=== PATIENT | female | born 1945 | race Caucasian/White ===

== ENCOUNTER → 2018-05-19 07:22 | Outpatient (CLI) | payer MEDICARE, OTHER, SELFPAY | PROVIDERS: Family Provider Physician Assistant; PCP Physician Assistant; Visit Provider Obstetrics & Gynecology | DX: Z53.9 Procedure and treatment not carried out, unspecified reason (principal) ==

== ENCOUNTER 2018-06-08 08:57 | Day surgery (SDC) | payer MEDICARE, OTHER, SELFPAY ==
[2018-06-08] VITALS (8 sets, daily range): BP systolic 96–155; BP diastolic 49–78; PULSE 58–69; RESP 14–18; TEMP 36.5–37.3; O2SAT 93–96; BMI 36.1
--- NOTE | 2018-06-08 | EMB_PTH ---
PATIENT: MEGHA DRAKE [place] [facility] [place][id number] AGE/SX: 73/F ROOM: RE06/08/[address]: Dr. Smita Medrano MD : [id number] BED: DIS: 06/08/2018 SPEC #: [id number] RECD: 06/08/18 14:58 STATUS: LYNDSEY RESrinath #: [id number] DREW: 06/08/18 00:[address]: Smita Medrano DEPT: SURGICAL PATHOLOGY RECD BY: Nirav Crowder ENTERED: 06/08/18 14:58 SP TYPE: ENDOM BX/C LÓPEZ DR: CHRISSY Manzanares Tissues: Endometrium, NOS Procedures: Surgery Specimen Level IV HEADER OPERATION: Hysteroscopy, dilation and curettage PRE-OP DIAGNOSIS: Endometrial hyperplasia, complex without atypia and thickened endometrium, postmenopausal bleeding TISSUE SUBMITTED: Endometrial curettings MICROSCOPIC DIAGNOSIS Endometrium, curettings: Complex endometrial hyperplasia with cytologic atypia. AM:kaity 06/09/18 MICROSCOPIC DESCRIPTION Slides are reviewed. GROSS DESCRIPTION Received in fixative is one container labeled with the patient's name and designated endometrial curettings and polyp. The specimen consists of multiple irregular fragments of zamudio-pink soft tissue mixed with polypoid fragments of tissue that in aggregate measure 3 x 2.5 x 0.3 cm. The entire specimen is submitted in one cassette. / SJ:kaity 06/08/18 TC:5 CPT: 41244
[2018-06-08 10:01] LABS: Bedside Glucose 114 mg/dL (70-110)
[2018-06-08 10:09] LABS: Hemoglobin 14.4 g/dl (12.0-15.0); Mean Corp Hgb Conc 33.5 g/gl (32-36); Mean Corpuscular Hgb 31.1 pg (27.0-32.0); Mean Corpuscular Volume 92.9 fL (81-99); Mean Platelet Vol. 9.8 fl (6.2-12.0); Platelet Count 319 K/mm3 (150-450); RBC Distribution Width CV 12.9 % (11.6-14.6); RBC Distribution Width SD 43.3 fl (35.1-43.9); Red Blood Count 4.63 M/mm3 (4.2-5.4)
[2018-06-08 10:15] LABS: Scan Indicated on CBC? Y/N NO
[2018-06-08 10:23] LABS: Anion Gap 9 (5-15); BUN 14 mg/dL (7-18); BUN/Creat Ratio 20.9 RATIO (10-20); Calcium,Total 8.7 mg/dL (8.5-10.1); Chloride 106 mmol/L (98-107); Creatinine, Serum 0.67 mg/dL (0.55-1.02); EST Glomerular Filtration Rate 92 mL/min (>60); Est Glom Filt Rate - Afr Amer 111 mL/min (>60); Estimated Creatinine Clearance 65.11 ml/min; Glucose 109 mg/dL (74-106); Sodium Level 141 mmol/L (136-145)
--- NOTE | 2018-06-08 12:11 | PCM.DC.D&C ---
Discharge Diet: No Restrictions Discharge Activity: Return to Normal Activity, May Shower, May Take a Tub Bath - in 2 weeks. May shower in (days): 1 May resume sexual activity in: 3 weeks Call your doctor if your incision/area has: Continuous Slow Oozing, Sudden Increased Bleeding, Foul Smelling Discharge Call your doctor if you observe: Fever of 101 or Higher, Using more than one pad per hour Allergies/Adverse Reactions: Allergies hydromorphone [From Dilaudid] Allergy (Verified 06/02/18 13:49) Unknown metoclopramide Allergy (Verified 06/02/18 13:48) Other HALLUCINATIONS nifedipine Allergy (Verified 06/02/18 13:48) Other HALLUCINATIONS nitrofurantoin Allergy (Verified 06/02/18 13:48) Other HALLUCINATIONS lorazepam [From Ativan] Adverse Reaction (Verified 06/02/18 13:49) Other HALLUCINATIONS tramadol [From Ultram] Adverse Reaction (Verified 06/02/18 13:49) Other NIGHTMARES Medications to take at Discharge Duloxetine Hcl [Cymbalta] 30 mg PO DAILY 04/13/18 Esomeprazole Mag Trihydrate [Nexium] 40 mg PO DAILY 04/13/18 Gabapentin [Neurontin] 600 mg PO BIDCM 04/13/18 Metoprolol Succinate [Toprol Xl] 50 mg PO DAILY 04/13/18 Pravastatin [Pravachol] 80 mg PO QHS 04/13/18 Vit A/Vit C/Vit E/Zinc/Copper [Preservision Areds Softgel] 1 each PO DAILY 04/13/18 busPIRone [Buspar] 15 mg PO DAILY 04/13/18 Acyclovir [Zovirax] 400 mg PO BID PRN 06/02/18 Albuterol Aerosols [Ventolin Aerosols] 2.5 mg INHALATION Q4H PRN PRN 06/02/18 Albuterol Sulfate [Proventil Hfa] 6.7 gm IH PRN PRN 06/02/18 Metformin HCl 500 mg PO DAILY 06/02/18 Primary Care Physician: Joan New PA [Primary Care Provider] - Test Results: Test results from this visit will be discussed in further detail at your follow-up appointment, if applicable. Please Follow Up With: Smita Medrano MD - [phone] When: as scheduled or as needed
--- NOTE | 2018-06-08 13:10 | PCM.OPRPT ---
Report of Operation Date of Procedure: 06/08/18 Pre-Operative Diagnosis: postmenopausal bleeding, endometrial hyperplasia- complex without atypia Post-Operative Diagnosis: same + endometrial polyps Surgery/Procedure Performed:: Hysteroscopy dilation and curettage with endometrial polyp resection Description of Surgical Findings:: Normal-appearing cervix and vagina, proliferative appearing endometrium. No significant hypervascularity noted. 2 small polyps in the left cornual area of the endometrial cavity, 1 larger pedunculated polyp in the right cornual area of the uterus. No other discrete abnormalities of the endometrial cavity. Both tubal ostia were identified. Normal-appearing endocervical canal. store clerk: Cory Granda Type of Anesthesia:: MAC/Supplemental/Local Anesthesiologist: Shaggy Levine Special Medications: none Specimen's removed: Endometrial curettings and endometrial polyps Drains: None Estimated Blood Loss (mL): 10 Fluids Replaced: 700 cc LR Description of Procedure: The patient was taken to the OR where she was prepped and draped in dorsal lithotomy position. The weighted speculum was placed in the vagina and the anterior lip of the cervix was grasped with a single-tooth tenaculum. A paracervical block was administered with 1% lidocaine with 1-100,000 epinephrine solution. The cervix was dilated serially with Hegar dilators. The 5mm hysteroscope was placed into the uterine cavity and the above findings were noted. Bilateral tubal ostia were identified. The hysteroscope was removed. The resectoscope with the loop electrode was readied and inserted into the cervix. The loop electrode was used to resect the polyp at their pedicles. These were removed. Gentle sharp curettage was then performed of the endometrium. I replaced the hysteroscope and noted there is still some proliferative appearing endometrium. I then did a visual resection of the endometrium with the loop electrode. The endometrial fragments were placed with endometrial curettings and polyp sent to pathology. The endometrial cavity was hemostatic. The instruments were removed from the vagina. The specimen was handed off and sent to pathology. All sponge and needle counts were correct. Vaginal sweep was performed by me. The patient was awakened and taken to the recovery room in stable condition. Hysteroscopic ins: 1250 cc normal saline Hysteroscopic outs: 850 cc Grafts/Implants Used: None - Complications None - Admit VTE Documentation VTE Present on Admission: No VTE Mechan Device Prophylaxis: SCD's VTE Pharm Prophylaxis ordered?: No Reason prophylaxis not ordered:: Procedure Not Indicated
== END 2018-06-08 14:47 | disposition home or self-care (01) ==
LOC: SDC 09:00 → AC 09:01
PROVIDERS: Family Provider Physician Assistant; PCP Physician Assistant; Visit Provider Obstetrics & Gynecology
PROC: 0UDB8ZZ Extraction of Endometrium, Via Natural or Artificial Opening Endoscopic (ICD-10-PCS; CPT 58558; principal; 2018-06-08 11:05)
DX: N85.01 Benign endometrial hyperplasia (principal); N84.0 Polyp of corpus uteri; N95.0 Postmenopausal bleeding; R73.03 Prediabetes; G62.9 Polyneuropathy, unspecified; I10 Essential (primary) hypertension; E78.5 Hyperlipidemia, unspecified; J45.909 Unspecified asthma, uncomplicated; M19.90 Unspecified osteoarthritis, unspecified site; K21.9 Gastro-esophageal reflux disease without esophagitis; F32.9 Major depressive disorder, single episode, unspecified; F41.9 Anxiety disorder, unspecified; Z79.899 Other long term (current) drug therapy; Z79.84 Long term (current) use of oral hypoglycemic drugs; Z78.0 Asymptomatic menopausal state; Z85.3 Personal history of malignant neoplasm of breast
CPT/HCPCS: 58558; 80048; 82962; 85027; 88305; J7120

== ENCOUNTER → 2018-11-21 14:16 | Outpatient (CLI) | payer MEDICARE, OTHER, SELFPAY ==
--- NOTE | 2018-11-21 14:27 | RAD_ITS ---
STUDY: X-RAY - CERVICAL SPINE REASON FOR EXAM: Female, 73 years old. Neck pain and headache TECHNIQUE: 6 view(s) of the cervical spine were obtained. COMPARISON: None FINDINGS: Normal anterior atlantoaxial articulation. Normal odontoid process. There is been previous anterior cervical fusion between C5 and C6. Hardware is intact and free of complication. Normal cervical lordosis. Normal vertebral bodies and endplates. There is multi-level degenerative disc disease with multilevel disc space narrowing. There is multi-level osseous foraminal stenosis. The soft tissue structures are unremarkable. RAD/Cerv Spine 4 or 5 Views IMPRESSION: Multilevel degenerative changes, no acute findings Electronically Signed: Yusuf Denny MD at 12:13 EST , Service support ,
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
== END ==
PROVIDERS: Family Provider Physician Assistant; PCP Physician Assistant; Referring Provider Physician Assistant; Visit Provider Physician Assistant
DX: S19.9XXA Unspecified injury of neck, initial encounter (principal); S09.93XA Unspecified injury of face, initial encounter; S09.90XA Unspecified injury of head, initial encounter; X58.XXXA Exposure to other specified factors, initial encounter; Y93.9 Activity, unspecified; Y92.9 Unspecified place or not applicable; Y99.9 Unspecified external cause status
CPT/HCPCS: 70450; 70486; 72050

== ENCOUNTER 2018-12-04 08:26 | Outpatient (RCR) | payer MEDICARE, OTHER, SELFPAY ==
--- NOTE | 2018-12-04 09:03 | BH.SGPN.GN ---
Behaviors/Verbalizations/Mental Status: []Client alert and oriented, neatly dressed and groomed. Eye contact good. Motor activity restless, fidgeting with her hands. Speech within normal limits. Affect congruent-tearful, mood depressed, anxious. Thoughts linear, logical, no signs of hallucinations or delusions. Reviewed client?s symptom tracker, 10/07 for suicidal thoughts. Client denies plan, or intent as of 12/04/18. Client Response/Progress/Benefit: []Client responded well to session, tearful throughout, but receptive to supportive statements. Client's first day in IOP and client shared she came to IOP because of her bipolar disorder. Client reported I feel like I'm two different people as client can be fun and outgoing and then cry for no reason. Client shared I have no reason to be so depressed but the group helped client combat this distorted thought and normalized her experience to reduce stigma. Client shared she hopes to learn coping skills and improve her mood to help client get back to being me. Client stated her bipolar has got me in situations that were bad but she wants to move forward. Client appeared to benefit from supportive statements from peers and challenging stigma. Client's first day of IOP. Client to continue to prevent decompensation and maintain safety.
--- NOTE | 2018-12-04 10:23 | BH.SGPN.GN ---
Behaviors/Verbalizations/Mental Status: [Client alert and oriented, casually dressed. Eye contact fair to good. Motor activity appropriate. Speech normal rate, appropriate tone. Affect constricted, mood anxious and depressed. Thoughts linear, logical, no signs of hallucinations or delusions.] Client Response/Progress/Benefit: [Client receptive of session, providing some input though mostly an observatory participant throughout discussion. Client actively listening AEB taking notes and providing some examples. Client connected with the topic of cognitive distortions and nodded throughout the group discussion regarding ways in which thoughts can have a positive or negative impact on mental health. Noted connecting with the various examples provided by fellow participants. Client aided the group in identifying the different types of cognitive distortions and noted that she struggles with use of ?all or nothing thinking?. Client provided an example of using ?all or nothing thinking? in her own life, stating that her mother used to tell her ?if you can?t do it right, don?t do it at all?. Client able to identify how this thought could prevent growth or working towards goals. She appeared to benefit from increasing awareness of how cognitive distortions impact mental health and displayed progress in ability to connect materials discussed with own mental health as well as provide input to the group. Client to continue treatment with a focus on identifying and challenging negative thinking patterns, preventing decompensation, and reducing depressive symptoms. ] Narrative Note: []
--- NOTE | 2018-12-06 09:10 | BH.SGPN.GN ---
Behaviors/Verbalizations/Mental Status: [] Eye contact is good. Motor activity is appropriate. Appearance is casual. Speech is Appropriate. Mood is depressed. Affect is flat. Thoughts are linear and logical. No evidence of psychosis. Reviewed daily check in sheet and pt reports 1/ for suicidal ideations. Primary therapist notified. Client Response/Progress/Benefit: [] Active participant in group activity. Tearful during her check-in. Reports being overwhelming with everything. Talked at length regarding negative impact of some familial relationships. Overwhelming internal emotions as well. Feels like she cannot complete any tasks or responsibilities with crying or becoming emotional. Group provided support, encouragement, and feedback which she reported was helpful. Will continue in IOP to prevent decompensation and stabilize mood. Narrative Note: []
--- NOTE | 2018-12-06 10:22 | BH.SGPN.GN ---
Behaviors/Verbalizations/Mental Status: []Client alert and oriented, neatly dressed and groomed. Eye contact good. Motor activity appropriate. Speech within normal limits. Affect congruent, mood anxious. Thoughts linear, logical, no signs of hallucinations or delusions. Client Response/Progress/Benefit: []Client responded well to session, quiet, but offering occasional insight. Client connected with the concept of pitfalls and described pitfalls as ?comfort zones? or things that keep people stuck. Client reported personal pitfalls can include depression and avoidance. Client agreed with peers that pitfalls can increase anxiety and depression. Client shared having awareness of one?s pitfalls could prevent a person from falling back into old ways. Client participated in the group activity and listened to feedback from peers. Client agreed that without awareness and communication, it is almost impossible to avoid falling into pitfalls. Client appeared to benefit from increasing awareness of how pitfalls impact mental health and how to avoid pitfalls. Progress limited as it is client?s second day of IOP. However, client appears to be engaging well in the group setting.
--- NOTE | 2018-12-06 11:20 | BH.SGPN.GN ---
Behaviors/Verbalizations/Mental Status: [] Eye contact is good. Motor activity is appropriate. Appearance is casual. Speech is Appropriate. Mood is depressed. Affect is flat. Thoughts are linear and logical. No evidence of psychosis Client Response/Progress/Benefit: [] Pt was an active participant in group discussion and activity. Pt completed a worksheet where she identified her own personal pitfalls. Along with the group she also identified general pitfalls or obstacles that keep them stuck in Thier life. Obstacles included; being unorganized, lack of a plan, not communicating, fear of failure, not utilizing supports, and letting emotions get in the way of progress. Group worked together to identify strategies to overcome personal and general pitfalls which included; actively participating in mental health treatment, developing and committing to a plan, identifying decision-making and problem solving strategies, reflection on past experiences, identifying coping skills that are effective and not effective, reframing, and challenging negative thoughts. Benefited from identifying personal and general pitfalls and strategies to over these pitfalls. Will continue in IOP to maintain safety, stabilize mood, and improve daily functioning Narrative Note: []
--- NOTE | 2018-12-06 13:46 | BH.COMM ---
Communication Note - Communication with Client Communication Note: Therapist checked in with client to see how her first week in IOP was going. Client was tearful and expressed she is depressed and scared as she feels like I'm two different people. Client shared she wants to get back to being herself and enjoying life. Client denied any active suicidal ideation, plan, and intent as of 12/06/18. Client shared she is happy my found out about this place as she feels welcomed in the group. Client to continue IOP to prevent decompensation.
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
--- NOTE | 2018-12-07 10:17 | BH.SGPN.GN ---
Behaviors/Verbalizations/Mental Status: [Client alert and oriented, casually dressed, hygiene appropriate. Eye contact fair to good. Motor activity WNL. Speech appropriate rate/tone. Affect congruent, mood euthymic, anxious. Thoughts linear, logical, no signs of hallucinations or delusions. ] Client Response/Progress/Benefit: [Pt responded well to session, actively listening throughout. Pt appeared to have difficulties in connecting with materials discussed though did well to ask questions for clarification. Pt participated in group discussion regarding mental health benefits of change. Pt identified three small personal changes to improve mental health as: taking things one task at a time, challenge negative thinking, and talk more with her daughter. Identified current barriers keeping pt from making those changes to be mind reading, fear of rejection, toxic relationships, and attitude. Pt appeared to benefit from gaining awareness of personal changes that would improve mental health and the barriers keeping client stuck. Progress noted in client level of insight regarding current barriers impacting mental health change. Continue IOP to further increase healthy coping skills, improve socialization and use of supports, and prevent decompensation.] Narrative Note: []
--- NOTE | 2018-12-08 12:47 | HP.PCM_ITS ---
History and Physical Date of Admission: 12/04/18 Chief Complaint: The patient is a 73-year old female who is admitted to the intensive outpatient mental health treatment program at [facility]. She has a history of bipolar disorder and anxiety. Her was present during part of the evaluation and he provided a small amount of collateral information. History of Present Illness: The patient's stated that she has always been a floyd person ever since he met her over 55 years ago. However, her moodiness did not become a serious problem until about the . She had her first psychiatric hospitalization in about 1982 while living in [place]. She became suicidal in the setting of some social stresses. Since that time she has had episodes of depression which lasted anywhere from a day to several weeks. She also has periods of time during which she feels high, spends money impulsively, acts like a different person, is very creative, starts projects, makes jewelry and gives it away and becomes more disinhibited. 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 He said these up periods last a day to several days. She also has periods of normality during which her moods are stable. The patient states that over the past few months she has been depressed. Golden christian, mood sometimes vary throughout the day and she may go from being in a good mood to becoming angry and irritable. She cries frequently. She has difficulty enjoying things in life. She does have hope for the future and she denied suicidal thoughts. Of interest, the patient stated that she often hides her moods from her , so that he is not aware that she is having difficulties. The patient is also had difficulties with anxiety over the years. She has been taking BuSpar for some time and in the past was taking Xanax and other medicines for anxiety. She said that anxiety is not currently a big problem. He is currently taking BuSpar. Past Psychiatric History: The patient has had 3 psychiatric admissions. She was admitted twice while living in [place] during the . She was most recently admitted to a psychiatric hospital in [place] in 1999. All admissions were for suicidality. She first received mental health treatment while living in [place] in 1982. She has seen several psychiatrists over the years, and has been tried on a variety of medications. She and her could only remember taking Xanax and lithium with lithium she developed a rash. She is also said to have a allergy to Ativan. Current Psychiatric Medications: Wellbutrin SR 150 mg daily, Cymbalta 30 milligrams daily, BuSpar 15 mg twice daily Medical History: The patient is overweight. She has neuropathy treated with gabapentin. She is prediabetic treated with metformin. He has asthma. She has hypercholesterolemia treated with pravastatin. She has a history of breast cancer. She recently fell and fractured her nose. Allergies: Dilaudid, Ativan, tramadol, metoclopramide, nifedipine, nitrofurantoin Family Psychiatric History: The patient says her daughter is similar to her with mood swings. Her half sister had depression and had ECT treatments. She thinks her mother had some psychiatric problems. Personal/Social History: Both parents are . He has a sister from whom she is estranged. She went up to the 11th grade in school but then did obtain a GED. She has always had some part-time work. 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 She lives with her . She has been for 55 years and describes the marriage is good. She has 1 daughter who is 54 years old. Denies any history of drug or alcohol issues. Review of Systems: Psychiatry: Depression, mood swings, and anxiety as per HPI. She is not suicidal. She reports some guilty ruminations consistent with possible psychosis. He is cognitively intact. Constitutional: She is overweight and her weight has been steady. Her energy level is fair. Endocrine: She is prediabetic and has hyperlipidemia. All other systems reviewed and are negative other than as per the medical history above. Examination: The patient presents as a woman with a labile mood who is neatly dressed and groomed. She alternates between crying and being of neutral mood. She demonstrates good social skills. Vital signs: Height 4 foot 10 inches, weight 186 pounds, respirations 17. Musculoskeletal: Some facial pain following trauma. Her speech is fluent and spontaneous. Her language is intact. Her judgment and insight are fair. Her judgment is poor when she is manic. He is alert and oriented x3. Her affect is labile, she becomes tearful. Her recent and remote memory are intact. Her attention span and concentration are decreased. She has normal thought processes and abstract reasoning. Her associations are intact. There are no hallucinations or delusions and she is not suicidal. She straits normal age-appropriate fund of knowledge. Mental Status Examination: The patient presents as an elderly woman of labile mood who is neatly dressed and groomed. Cries during much of the session, but is able to control her emotions to some extent. Her thoughts are logical and coherent. Is very floyd as per HPI. Not suicidal. There is no significant psychosis. She is cognitively intact. Diagnoses: [] [place] I: Bipolar disorder, unspecified type, anxiety disorder unspecified [place] II: Deferred [place] III: Overweight, asthma, hypercholesterolemia, prediabetes, neuropathy, status post facial injury Plan: I am continuing treatment with Wellbutrin SR, Cymbalta and BuSpar at the current doses. I am adding Latuda 20 mg daily. Patient will participate in the intensive outpatient groups. I will see her again next week.
--- NOTE | 2018-12-08 12:48 | BH.DR.ITP ---
Initial Treatment Plan - Patient Information Visit Information: ADMISSION DATE: 12/04/18 EXPECTED LOS: 4-6 weeks Diagnoses:: Bipolar disorder; anxiety disorder - Problems/Symptoms Problem #1:: depression, mood lability; tearfulness Problem #2:: anxiety Symptom:: feeling overwhelmed, anxious
--- NOTE | 2018-12-11 09:10 | BH.SGPN.GN ---
Behaviors/Verbalizations/Mental Status: []Client alert and oriented, casual dress, hygiene tended to. Eye contact good. Motor activity appropriate. Speech within normal limits. Affect congruent, anxious and depressed. Tearful at times throughout session. Thoughts linear, logical, no signs of hallucinations or delusions. Reviewed client?s symptom tracker, no signs of suicidal ideation, plan, or intent as of today. Client Response/Progress/Benefit: []Pt was a active participant in group discussion, providing input throughout, attentive AEB good eye contact and nodding throughout. Emotion for today is anxious. Stressor is being torn on whether the congregation she recently moved to is the right fit because daughter didn't like pt's previous congregation pt was attending so pt moved churches. Pt identified having a a hard time setting boundaries with her daughter and often goes along with what daughter wants to do because pt's doesn't like any conflict. With support pt understands importance of taking care of herself and her needs. Mental health win identified as being able to sleep this weekend. Additional win was having a relaxing weekend in which she didn't have to do as many activities with her daughter, which pt stated often her weekend is full with things her daughter wants to do. Pt benefited from supportive and structured group environment. Recommended to continue IOP tx to increase confidence, increase healthy boundaries, prevent decompensation, and continue to improve positive coping and anxiety management. Narrative Note: []
--- NOTE | 2018-12-11 10:15 | BH.SGPN.GN ---
Behaviors/Verbalizations/Mental Status: []Client alert and oriented, casually dressed, hygiene good. Eye contact good. Motor activity appropriate. Speech within normal limits. Affect congruent to mood, mood dysthymic, anxious. Thoughts linear, logical, no signs of hallucinations or delusions. Client was having a hard time spelling words. Client Response/Progress/Benefit: []Client responded well to session, taking notes and participating in discussion. Client reported viewing things as impossible can negatively impact one?s mental health. Client shared ?thoughts impact us a lot and can hurt you.? Client appeared to connect with fixed thinking and recognized fixed thinking patterns she uses. Client stated that if one can challenge fixed thinking it can positively impact mental health. Client shared if one continues to have fixed thinking it can ?play over and over in your head.? Client identified some fixed thoughts that have kept client feeling stuck. Client?s thought was ?I have to please everyone.? Client engaged in the group activity and the group did not complete the activity during second group. However, client continued to be receptive to ideas from the group and positive. Client appeared to benefit from identifying fixed thoughts that have kept client stuck from making mental health progress. Progress noted as client has increased social support and self-awareness at IOP. However, client continues to struggle with utilizing coping skills in the moment and setting boundaries.
--- NOTE | 2018-12-11 11:23 | BH.PSA_ITS ---
Source of Information - Presenting Problems/Circumstances Problems, Referral Source, Mental Status, Client: Last couple of months pt stated her mental symptoms have worsened due to having realtionship troubles with her daughter. Pt states she moved 2 1/2 years ago to be closer to her daughter, but is struggling with leaving all her friends. Pt endorses erratic moods, crying spells, racing thoughts, increased sleep, no energy, loss of concentration, loss of motivation, and anhedonia. Pt reports she has daily anxiety with constant worry, rumination, and fear others are judging her. Psychiatric Presentation - Psych Issues & Need for Admission Psychiatric Issues:: Diagnosed Bipolar Disorder in 1985 Past Psychiatric History - Treatment Hx Treatment History: Several years went to [facility] in [place] until moved 2 years ago. Psychiatry off and on since [address] Yen is primary care physician currently prescribing medications. First hospitalization:: [facility] - 1985 for suicidal thoughts Most recent hospitalization:: 15 years ago in [place] for suicidal thoughts Medication Trials:: No ECT Therapy:: No Describe (age, circumstance, etc) any past hospitalizations: The patient has had 3 psychiatric admissions. She was admitted twice while living in [place] during the . She was most recently admitted to a psychiatric hospital in [place] in 1999. All admissions were for suicidality. Development & Family of Origin - Family Who currently lives in your home?: Pt currently lives with . Ethnicity - Culture Do you identify yourself with any particular cultural, ethnic background, or community?: No - Sexuality Sexual Orientation: Heterosexual Spirituality - Roman Catholic Do you currently identify with any organized anabaptism?: Sikh - Beliefs Is there a particular form of support from this community you can use for your recovery?: Yes Mental Status - Memory Recent Memory: Fair Remote Memory: Fair - Concentration Concentration: Poor - Eye Contact Eye Contact: Good - Speech Speech: Congruent - Thought Process Thought Process: Logical, Ruminations Insight: Fair Judgment: Fair Behavior: Anxious - Orientation Orientation: Time, Person, Place, Situation - Appearance Appearance: Appropriate - Mood Mood: Anxious, Dysphoric/tearful - Affect Affect: Labile Suicide Assessment - Suicidal Ideation Have you ever felt like hurting yourself?: No Please explain:: The patient has had 3 psychiatric admissions. She was admitted twice while living in [place] during the . She was most recently admitted to a psychiatric hospital in [place] in 1999. All admissions were for suicidality. Were you using ETOH/drugs at the time?: No Suicidal Intentional Rating Scale (SIRS): Suicidal thoughts (past) Physician Notification: If Active suicidal thoughts/Will not contract for safety is checked, contact physician and document in the Physician Notification section below. Violent Behavior/Abuse History - Homicidal Ideation Do you have any homicidal thoughts? If so, explain:: No Is there a known potential victim? If yes, who:: No - Safety Do you ever feel threatened in your home? If yes, describe:: No Substance Use - Substance Substance Use Type: None Education & Occupational Histo - Education What is your level of education?: GED Service - Service Have you ever been in the ?: No Legal History - Records Have you had any past legal charges?: No Do you have any current legal charges?: No Have you ever been incarcerated? If yes, describe:: No - Court Orders Have you had any past court orders for psychiatric treatment?: No Do you have a present court order for psychiatric treatment?: No Problem Checklist - Current Problem Areas Problem List: Depressed mood/sad, Anxiety, Anger/aggression, Inattention, Impulsivity, Mood swings/hyperactivity, Other addictive behaviors - shopping - will buy things and sometimes take it back the next day. But has hid bags of clothing from her ., Sleep problems, Additional psychosocial stressors - difficulty setting boundaries with daughter. Diagnoses - Diagnoses Diagnosis #1:: Bipolar disorder, unspecified type Diagnosis #2:: anxiety disorder unspecified Interpretive Summary - Interpretive Summary Interpretive Summary: Pt is a 74 year old female referred to [facility] due to worsening depression and anxiety. She had her first psychiatric hospitalization in about 1982 while living in [facility]. She became suicidal in the setting of some social stresses. Since that time she has had episodes of depression which lasted anywhere from a day to several weeks. She also has periods of time during which she feels high, spends money impulsively, acts like a different person, is very creative, starts projects, makes jewelry and gives it away and becomes more disinhibited. 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 These up periods last a day to several days. She also has periods of normality during which her moods are stable. The patient states that over the past few months she has been depressed. However, mood sometimes vary throughout the day and she may go from being in a good mood to becoming angry and irritable. She cries frequently. She has difficulty enjoying things in life. She does have hope for the future and she denied suicidal thoughts. Of interest, the patient stated that she often hides her moods from her , so that he is not aware that she is having difficulties. denies current sondra symptoms. denies active suicidal ideation, plan or intention. denies delusions or hallucinations. Treatment Plan Recommendations - Recommendations Guidelines: Special needs identified to be included in the development of an individualized treatment plan regarding past psychiatric history and treatment, developmental events, family relationships/events/culture, past and/or current educational, occupational, social, and residential experience, and legal status. Recommendations:: Pt is recommended to start IOP level of care due to worsening depression and anxiety which are impacting her familial relationships, social relationships, and impacts daily functioning.
--- NOTE | 2018-12-11 13:36 | BH.MTP ---
Master Treatment Plan - Patient Information Program Physician:: Dr. Lopez Primary Therapist:: Karen Ortiz, [facility] - Psychiatric Diagnoses Psychiatric Diagnoses:: Bipolar disorder, unspecified type, anxiety disorder unspecified Diagnosis Code(s):: F31.9 - Estimated LOS Estimated LOS (in weeks):: 6 Problem/Goal #1 - Problem/Goal #1 Stated Goal:: Client will increase mood stability, decrease depressive symptoms, and increase coping skills due to Bipolar I disorder through Intensive Outpatient Program. Description of Barriers: Pt's distorted thought patterns, inappropriate guilt, reflecting on past mistakes, and passive communication could be potential barriers to treatment progress. Pt tends to hide her emotions from others which could be barrier to progress because other's don't know she is in need of help, also not dealing with her emotions could maintain depressed cycle. Functional Impact: Pt's mental health symptoms are impacting pt's desire to engage in activities she once enjoyed. Pt reports difficulty with finishing projects or tasks, often starts things but does not finish. Pt isolative behaviors impacting personal relationships. Pt's easily upset and having difficulty managing her emotions. Pt not functioning at baseline. Goal Relevant Strengths/Supports: Pt is determined and verbalizes motivation to get better. Pt's is a positive support for pt and supportive of her getting help. - Objectives Objective #1 Stated Objective: Identify and replace 3-4 distorted thought patterns that reinforce depressive symptoms. Interventions: Therapist will help client identify distorted, negative beliefs about self and world and replace those messages with positive, affirmative messages. Discharge Criteria: Client will have achieved this goal when can identify at least 3 negative and distorted messages and replace those messages with positive, affirmative messages. Target Date: 01/22/19 Review Date: 01/08/19 Objective #2 Stated Objective: Pt will decrease depressive and manic symptoms AEB pt?s score on the DSM 5 cross-cutting measure and improve pt?s daily functioning. Interventions: Through groups and individual therapy, pt will be provided with education on cognitive distortions, mistaken beliefs, and identifying and combating negative self-talk. Therapist will assist pt with getting back into the activities she once enjoyed as well as increasing healthy coping strategies. Discharge Criteria: Pt will have met this goal when pt?s score on the DSM 5 cross cutting measure for depression and sondra has been decreased and per pt?s report daily functioning has improved. Target Date: 01/22/19 Review Date: 01/08/19 Problem/Goal #2 - Problem/Goal #2 Stated Goal:: Stabilize anxiety level while increasing ability to function on daily basis. Description of Barriers: Pt's distorted thought patterns, inappropriate guilt, reflecting on past mistakes, and passive communication could be potential barriers to treatment progress. Pt tends to hide her emotions from others which could be barrier to progress because other's don't know she is in need of help, also not dealing with her emotions could maintain depressed cycle. Functional Impact: Pt's mental health symptoms are impacting pt's desire to engage in activities she once enjoyed. Pt reports difficulty with finishing projects or tasks, often starts things but does not finish. Pt isolative behaviors impacting personal relationships. Pt's easily upset and having difficulty managing her emotions. Pt not functioning at baseline. Goal Relevant Strengths/Supports: Pt is determined and verbalizes motivation to get better. Pt's is a positive support for pt and supportive of her getting help. - Objectives Objective #1 Stated Objective: Client will learn and utilize 2-3 healthy coping strategies to manage anxious symptoms. Interventions: Therapist will assist client in learning internal coping strategies to manage anxious symptoms, along with helping client identify triggers. Discharge Criteria: Client will have achieved this goal when can verbalize and has practiced at least 2 healthy coping strategies to mangage mental health symptoms. Target Date: 01/22/19 Review Date: 01/08/19 Objective #2 Stated Objective: Pt will decrease anxious symptoms AEB pt?s score on the DSM 5 cross-cutting measure improve pt?s daily functioning. Interventions: Through groups and individual therapy, pt will be provided education about anxiety?s impact on body and common physiological reaction to anxiety. Therapist will teach pt appropriate breathing techniques and build healthy coping skills to manage daily anxieties. Discharge Criteria: Pt will have met this goal when pt?s score on the DSM 5 cross cutting measure for anxiety has been decreased and per pt?s report daily functioning has improved. Target Date: 01/22/19 Review Date: 01/08/19
--- NOTE | 2018-12-11 22:57 | BH.MDN_ITS ---
Multi-Disciplinary Note - Note 60-min Individual Time Started:: 11:24 Date: 12/11/18 Purpose of session/treatment goals addressed:: Purpose of session was to assess pt's current symptoms and stressors. Other topics: gathering additional background information, identifying treatment goals for IOP, and identifying small daily goal. Eye Contact:: Good Motor Activity:: Restless Appearance:: Casual Speech:: Appropriate Mood:: Anxious, Depressed Affect:: Congruent Thoughts:: Logical, No evidence of hallucinations/delusions noted Staff Interventions:: Therapist used open ended questions to elicit pt's current symptoms and stressors. Therapist probed for additional background information. Therapist processed pt's guilt and gently challenged pt's thinking patterns. Therapist collaborated with pt to identify treatment goals for IOP. Therapist elicited a small goal for pt to focus on for the day to help keep her focused on one thing at a time. Therapist provided support by active listening and validating emotions. Client Response:: Client shared she is really enjoying the program because it has been helpful to have support from others and learning the skills. Client reported her mental health has worsened since she moved from [place] to [place] about 2 years ago. Client shared she moved to be closer to her daughter, but feels more lonely since her friends live in [place]. Client reported she struggles with setting boundaries with her daughter because she doesn't want to upset her , whom client shared doesn't like conflict. Client became upset when talking about the guilt she has from not making her daughter move to [place] in . Client shared her daughter was 17 years old at the time and had just gotten and did not want to go to [place] with client and client's . Client reported she feels guilt for not being a parent and making her daughter move with her. Client shared she feels responsible for how her daughter has struggled throughout life. Through gentle challenging client able to recognize she is being hard on herself and personalizing. Client stated she is becoming more aware of the importance of taking care of herself and the need to set healthy boundaries with others. Client identified goals she'd like to work on in IOP to include being able to focus and complete tasks, increased confidence, and setting boundaries. Client stated her goal for today is to throw away her old magazines and put away the magazines she wants to keep. Risks/Concerns:: Client denies suicidal ideation, plan or intention to date. Progress Toward Goals/Plan:: Client showing progress with increased insight into how her difficulty setting boundaries is impacting her mental health. Client's guilt and fear of upsetting others could be hindrance to treatment progress because could result in client not taking care of her own needs. Client to continue IOP level of care to decrease depression, challenge negative thoughts and prevent decompensation. Time Stopped:: 12:21
--- NOTE | 2018-12-13 09:04 | BH.SGPN.GN ---
Behaviors/Verbalizations/Mental Status: [Eye contact is good. Motor activity is appropriate. Appearance is casual new haircut and color which pt reports was stepping out of comfort zone. Speech is an appropriate rate and tone. Mood is anxious, euthymic. Affect is congruent. Thoughts are linear and logical. No evidence of psychosis. Reviewed daily check in sheet and no reports of suicidal ideations or intent.] Client Response/Progress/Benefit: [Pt was an active participant in group discussion, providing input throughout and openly discussing with group. Emotion for today is happy which she attributes to successful implementations of skills learned in tx to her daily life. Client shared taking the initiative to use effective and assertive communication to vocalize her concerns with her taking on responsibilities that are not his. Pt. indicated that at first she was afraid of broaching the topic with him, however found he was receptive and understanding when she explained why she was concerned. Noted that instead of taking over and fixing their daughter?s car himself, her agreed to teach their son-in-law how to do it. Client shared that it was empowering for her to feel her concerns were heard. She went on to indicate having a positive experience with her daughter the previous date as well. She noted that she had stepped outside her comfort zone and got a new hairstyle and was able to have a ?normal conversation? with her daughter. Benefitted from identifying areas of progress and processing fears that she ?won?t be able to keep this up? with the group. Group was receptive and provided support. Recommended to continue IOP to continue to promote assertive communication, prevent decompensation, and continue to improve positive coping and emotion regulation.] Narrative Note: []
--- NOTE | 2018-12-13 10:15 | BH.SGPN.GN ---
Behaviors/Verbalizations/Mental Status: []Client alert and oriented, neatly dressed and groomed- new haircut. Eye contact good. Motor activity appropriate. Speech interrupted due to potential difficulty formulating thoughts. Affect congruent to mood, mood anxious. Client appears to have difficulty formulating sentences and often repeats I don't know. no signs of hallucinations or delusions. Client Response/Progress/Benefit: []Client responded well to session, engaged in discussion and taking notes. Client further processed her conflict resolution style. Client reported she has said things in arguments that ?I don?t mean? and that she has a hard time saying no to people. Client stated she wants to be more collaborative and stand up for her needs. Client was encouraged to practice being collaborative during the active. Client was mostly passive, but when prompted by therapist, client shared her ideas with peers. Client helped the group identify things that positively and negatively impact conflict resolution. Client agreed with group that reacting emotionally and ?saying mean things? both negatively impact conflict resolution. Client helped the group identify strategies to better manage conflict such as managing emotions and focusing on the facts. Client appeared to benefit from learning conflict resolution strategies and practicing in the moment. Progress noted as client reports increase self-awareness and self-care. However, client continues to struggle with negative self-talk and regulating her emotions.
--- NOTE | 2018-12-13 10:15 | BH.SGPN.GN ---
Behaviors/Verbalizations/Mental Status: [] Eye contact is good. Motor activity is appropriate. Appearance is casual. Speech is Appropriate. Mood is anxious. Affect is congruent. Thoughts are linear and logical. No evidence of psychosis. Client Response/Progress/Benefit: [] Pt was an active participant in group discussion and activity. Worked together with the group to define conflict which they reported was; two opposing forces, wanting two different outcomes, two different perspectives on same situation, misunderstanding, internal struggles with decisions or emotions, feeling torn, and balancing. Described difference between external conflict and internal conflict. Discussed the benefits of conflict in progressing in relationships and mental health. Pt worked with group to identify barriers to over conflict which included; strong belief in one's perspective or view, miscommunication, one's emotional mood, fear, ramifications, consequences, and negative distortions. Attentive during psycho-education on different types of conflict styles. Pt reports that her conflict style is accommodating which impacts her mental health as she has a hard time saying no and feels lost. Benefited as she was able to identify and define conflict as well as increase awareness of how conflict style impacts her mental health. Will continue in IOP to stabilize mood and prevent decompensation. Narrative Note: []
--- NOTE | 2018-12-14 09:10 | BH.SGPN.GN ---
Behaviors/Verbalizations/Mental Status: [] Eye contact is good. Motor activity is appropriate. Appearance is casual. Speech is Appropriate. Mood is depressed. Affect is flat. Thoughts are linear and logical. No evidence of psychosis. Reviewed daily check in sheet and no reports of suicidal ideations or intent. Client Response/Progress/Benefit: [] Pt participated in group discussion. Emotion for today is anxious. Pt was tearful at times during check-in. Reports that she feels as if people are always staring at her and believe that she is stupid. Shared that she struggles at time with finding the right words to communicate. Discussed how being self-conscious impacts her depression, anxiety, and her overall wellness. Group provided feedback that challenged her cognitive distortion that other group members believe she was stupid. Group pointed out that they have had similar self-conscious thoughts about themselves as well. Benefited from group feedback and support. Will continue in IOP to stabilize mood, improve daily functioning, and prevent decompensation. Narrative Note: []
--- NOTE | 2018-12-14 10:25 | BH.SGPN.GN ---
Behaviors/Verbalizations/Mental Status: [Pt eye contact good, casually dressed, motor activity appropriate, speech normal rate and tone, mood euthymic and positive, congruent affect, thoughts linear and intact, no evidence of delusions or hallucinations.] Client Response/Progress/Benefit: [Pt receptive of session and engaged throughout AEB providing increased input and discussing insights with the group. Did well to participate in the activity and reflect upon group topic of resilience. Pt appeared to connect with various definitions of resilience provided by the group as well as ideas for how resilience can have positive impacts mental health and wellness. Pt engaged in small group discussion about the various strategies that can help strengthen one's resilience and provided examples of ways resilience can boost self-confidence. Pt indicated that keeping things in perspective is an important component of resilience as it ?allows you to look at the bigger picture? rather than ruminating on small components. Pt seemed to benefit from increased awareness of various components that can contribute to increased resilience. Progress noted in pt ability toconnect more with tx materials and provide additional input to group. Continued IOP recommended to prevent decompensation, increase healthy skill application and thought challenging to continue to improve sx management. ] Narrative Note: []
--- NOTE | 2018-12-18 09:05 | BH.SGPN.GN ---
Behaviors/Verbalizations/Mental Status: [] Eye contact is good. Motor activity is appropriate. Appearance is casual. Speech is Appropriate. Mood is anxious. Affect is congruent. Thoughts are linear and logical. No evidence of psychosis. Reviewed daily check in sheet and no reports of suicidal ideations or intent. Client Response/Progress/Benefit: [] Pt participated in group discussion. Emotion for today is anxious. Continue to report daily anxiety and stress which impacts her functioning. Tearful at times. Ruminates extensively on her past actions, relationships, and what she should be doing. According to pt her pointed out when she was using coping skills and utilized restrain during a recent stressful event. Pt pointed out I think this program is helping. Progress noted per pt report. Benefited from group feedback, support, and encouragement. Will continue in IOP to stabilize mood, improve daily functioning, and increase coping skills. Narrative Note: []
--- NOTE | 2018-12-18 11:20 | BH.SGPN.GN ---
Behaviors/Verbalizations/Mental Status: []Client alert and oriented, neatly dressed and groomed. Eye contact good. Motor activity appropriate. Speech within normal limits. Affect full, mood euthymic. Thoughts linear, logical, no signs of hallucinations or delusions. Client Response/Progress/Benefit: []Client responded well to session, needing clarification at times, but overall positive contributions. Client participated in the activity and helped the group process challenges associated with making change. Client recognized that in the activity she became upset with herself when she made a mistake, but she was forgiving to others. The group connected this to the double-standards they hold themselves to when trying to make positive changes. Client reported teamwork, communicating effectively, and self-talk helped the group adapt to change. Client identified a change she would like to make to improve her mental health. Client?s goal was to ?think more before I speak.? Client shared she has said hurtful things in the past and she thinks thinking before she speaks will improve her relationship with her family. Client appeared to benefit from overcoming challenges associated with making change and from identifying a change that would improve her mental health. Progress noted as client reports improved mood and reduced isolation. However, client continues to struggle with guilt, boundaries, and emotional regulation.
--- NOTE | 2018-12-20 09:10 | BH.SGPN.GN ---
Behaviors/Verbalizations/Mental Status: [] Eye contact is good. Motor activity is appropriate. Appearance is casual. Speech is Appropriate. Mood is euthymic. Affect is congruent. Thoughts are linear and logical. No evidence of psychosis. Reviewed daily check in sheet and no reports of suicidal ideations or intent. Client Response/Progress/Benefit: [] Pt was an active participant in group discussions. Emotion for today is calm. Reports improved relationships and communication with daughter. Using skills learned in group to increase assertive and healthy communication. Reports that she feels more in control of her mood. Talked about some stressors which have been a challenge to her recently and feelings of guilt, however group was able to reframe her thoughts. Progress noted. Will continue in IOP to prevent decompensation and stabilize mood. Narrative Note: []
--- NOTE | 2018-12-20 10:16 | BH.SGPN.GN ---
Behaviors/Verbalizations/Mental Status: [Client alert and oriented, casually dressed and appropriately groomed. Eye contact good. Motor activity appropriate. Speech within normal limits. Affect congruent, mood euthymic and anxious. Thoughts linear, logical - at times appearing to display difficulties in comprehending materials discussed, no signs of hallucinations or delusions. ] Client Response/Progress/Benefit: [Pt responded well to session, actively engaged throughout activity and discussion. Provided insight regarding topic of social supports and related to input provided by the group. Pt shared connecting to barriers to seeking support discussed by the group. Identified benefits of social support as helping us gain perspective and reassurance. Pt was engaged during the group activity and responded well to direction as well as provided suggestions to the group. Appeared to benefit from gaining awareness of barriers that keep from seeking social support as well as practicing in the moment coping skills during activity. Progress noted in ability to use anxiety management skills during activity. Continued tx to prevent decompensation, maintain safety, as well as continue to make progress towards tx goals.] Narrative Note: []
--- NOTE | 2018-12-20 11:20 | BH.SGPN.GN ---
Behaviors/Verbalizations/Mental Status: []Pt alert and oriented, eye contact good, casually and neatly dressed, motor activity appropriate, speech normal rate and tone, mood anxious, congruent affect, thoughts linear and intact, no evidence of delusions or hallucinations. Client Response/Progress/Benefit: []Client semi-active participant AEB client contributing at times to discussion, however listened attentively to others. Client worked with the group to make connections between barriers faced in the challenge activity and strategies for managing these barriers with utilizing social supports in daily life. Client reflected that a personal barrier in building new supports is difficulty setting boundaries with daughter which results in client spending most of her time with daughter. Client contributed to discussion about the different types of support and benefits different types of support can provide. Client worked with the group to identify strategies for improving development of new supports and better utilization of current supports. Client identified she would like to improve personal relationships by looking at the [facility] to see if there is a class she can join. Client seemed to benefit from identifying a type of support she would like to improve upon and creating actionable steps to promote follow-through. Client to continue IOP level of care to prevent decompensation, increase use of healthy supports and anxiety management skills. Narrative Note: []
--- NOTE | 2018-12-20 14:37 | BH.MDN ---
Multi-Disciplinary Note - Note 45-min Individual Time Started:: 12:30 Date: 12/20/18 Purpose of session/treatment goals addressed:: Purpose of session was to assess pt's current symptoms and stressors. Other topics included: using the decisional balance tool and self-care. Eye Contact:: Good Motor Activity:: Restless Appearance:: Casual Speech:: Appropriate Mood:: Anxious Affect:: Labile Thoughts:: Logical, Other - confused at times, No evidence of hallucinations/delusions noted Staff Interventions:: Therapist used open ended questions to elicit pt's current symptoms and stressors. Therapist worked with pt to complete a decisional balance worksheet because pt reported being stuck between two choices. Therapist assisted pt with processing the results of the decisional balance tool. Therapist elicited pt's plan of action based on results of the tool. Therapist provided pt with self-care wheel and educated pt about importance of taking time for her. Therapist gave pt homework to engage in at least one self-care activity over the weekend. Client Response:: Client reported she is really struggling with a decision in regards to her adventist situation she has discussed about last session. 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 Client reported she wants to return to her old adventist, but feels like she blew it by leaving and going to a different adventist. 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 Client identified negatives to staying in current adventist include: feeling trapped, can't go to other adventist, doesn't have fun events to attend, not engaging sermon, feels disconnected and doesn't enjoy the adult bible study. Cleint shared positives of going back to the old adventist to include: enjoys the sermon, many activities to attend, feels connected with others, enjoys bible study and likes to attend the game day during the week. client identified negatives of going back to old adventist include: worry she will be judged for leaving, not being accepting for going to a different adventist and feels forced by congretation to attend adult bible study. 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 Client expressed worries about being judged by others but after further exploration client admitted she is assuming she is being judged and has no facts to support the assumptions. Client agreeable to focus on self-care this weekend. Risks/Concerns:: Client denies suicidal ideation, plan or intention to date. Progress Toward Goals/Plan:: Client demonstrating progress AEB client reporting improved ability to manage her emotions in the moment. Client stated her has made several comments about client being able to handle stress better and using breathing skills to keep herself calm in the moment. Client shared she has also been setting boundaries with her daughter and starting to focus on things she enjoys doing. Client continues to struggle with decision making, difficulty managing anxiety, and distorted thought patterns continue to impact her behavior and emotions. Client to continue IOP level of care to decrease anxiety, increase healthy coping and prevent decompensation. Time Stopped:: 13:15
--- NOTE | 2018-12-20 15:32 | BH.MDN_ITS ---
Multi-Disciplinary Note - Note 45-min Individual Time Started:: 12:30 Date: 12/20/18 Purpose of session/treatment goals addressed:: Purpose of session was to assess pt's current symptoms and stressors. Other topics included: using the decisional balance tool and self-care. Eye Contact:: Good Motor Activity:: Restless Appearance:: Casual Speech:: Appropriate Mood:: Anxious Affect:: Labile Thoughts:: Logical, Other - confused at times, No evidence of hallucinations/delusions noted Staff Interventions:: Therapist used open ended questions to elicit pt's current symptoms and stressors. Therapist worked with pt to complete a decisional balance worksheet because pt reported being stuck between two choices. Therapist assisted pt with processing the results of the decisional balance tool. Therapist elicited pt's plan of action based on results of the tool. Therapist provided pt with self-care wheel and educated pt about importance of taking time for her. Therapist gave pt homework to engage in at least one self-care activity over the weekend. Client Response:: Client reported she is really struggling with a decision in regards to her rastafarian situation she has discussed about last session. 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 Client reported she wants to return to her old rastafarian, but feels like she blew it by leaving and going to a different rastafarian. 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 Client identified negatives to staying in current rastafarian include: feeling trapped, can't go to other rastafarian, doesn't have fun events to attend, not engaging sermon, feels disconnected and doesn't enjoy the adult bible study. Cleint shared positives of going back to the old rastafarian to include: enjoys the sermon, many activities to attend, feels connected with others, enjoys bible study and likes to attend the game day during the week. client identified negatives of going back to old rastafarian include: worry she will be judged for leaving, not being accepting for going to a different rastafarian and feels forced by congretation to attend adult bible study. 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 Client expressed worries about being judged by others but after further exploration client admitted she is assuming she is being judged and has no facts to support the assumptions. Client agreeable to focus on self-care this weekend. Risks/Concerns:: Client denies suicidal ideation, plan or intention to date. Progress Toward Goals/Plan:: Client demonstrating progress AEB client reporting improved ability to manage her emotions in the moment. Client stated her has made several comments about client being able to handle stress better and using breathing skills to keep herself calm in the moment. Client shared she has also been setting boundaries with her daughter and starting to focus on things she enjoys doing. Client continues to struggle with decision making, difficulty managing anxiety, and distorted thought patterns continue to impact her behavior and emotions. Client to continue IOP level of care to decrease anxiety, increase healthy coping and prevent decompensation. Time Stopped:: 13:15
--- NOTE | 2018-12-21 09:04 | BH.SGPN.GN ---
Behaviors/Verbalizations/Mental Status: [Eye contact is good - tearful during check-in. Motor activity is appropriate. Appearance is casual and neat. Speech is Appropriate. Mood is dysthymic, anxious. Affect is congruent. Thoughts are linear and logical, racing - consistent with rumination. No evidence of psychosis - though appearing to high levels of guilt. Reviewed daily check in sheet with no reports of suicidal ideations or intent.] Client Response/Progress/Benefit: [Client attentive and remained engaged throughout, receptive of feedback from the group. Emotion for today is mixed,noting she is experiencing anxiety and guilt about her relationship with her daughter as well as excitement about being in the group environment. Shared with the group mental health positives of beginning an exercise regime at the [employer] and reaching out to a friend. She spent much of the group discussing current fear that she has failed her daughter for not being around when she was younger. Client displaying some progress in her ability to engage in healthy coping and apply thought challenging techniques. Will continue in IOP to increase coping skills, decrease depression, and prevent decompensation.] Narrative Note: []
--- NOTE | 2018-12-21 11:25 | BH.SGPN.GN ---
Behaviors/Verbalizations/Mental Status: []Client alert and oriented, neatly dressed and groomed. Eye contact good. Motor activity appropriate. Speech within normal limits. Affect congruent-tearful at times, mood dysthymic. Thoughts linear, logical, no signs of hallucinations or delusions. Client Response/Progress/Benefit: []Client responded well to session, receptive to feedback. Client appeared to connect with maintenance cycles and recognized how negative thinking can keep a person stuck. Client identified a negative thought that has kept her stuck. Client?s thought was ?they won?t accept me? and that she fears rejection. Client shared when she thinks this way she withdraws from supports and feels anxious. The group helped client see that this thought is unrealistic and jumping to conclusions. Client able to reframe the thought to ?I know I have my friend I can talk to.? ?Client shared this thought would improve her mental health because it would encourage her to reach out, be more assertive, and feel relieved. Client appeared to benefit from practicing challenging negative thinking. Client has made progress in increasing self-awareness, but she continues to struggle with inappropriate guilt and negative thinking.
--- NOTE | 2018-12-25 09:02 | BH.SGPN.GN ---
Behaviors/Verbalizations/Mental Status: []Client alert and oriented, disheveled appearance. Eye contact good. Motor activity appropriate. Speech within normal limits. Affect congruent-tearful, mood dysthymic and anxious. Thoughts racing, no signs of hallucinations or delusions. Reviewed client?s symptom tracker, no risk for suicidal ideation, plan, or intent as of 12/25/18. Client Response/Progress/Benefit: []Client responded well to session, tearful throughout, but receptive to feedback from peers. Client reports feeling ?overwhelmed? today and stated she feels like she cannot say no to people or she will let them down. Client processed a recent stressor and she reported she feels like ?I?m being pulled all over the place.? Client shared her also said something to her this morning that was potentially meant as a positive, but client reported she took it negatively. Client able to challenge her distorted thinking with the help of cassandra architect and peers. Client able to identify current mental health wins to be having a good weekend and making it to group today even though ?I look like a mess.? Client appeared to benefit from connecting with peers and processing her stressors. Progress noted as client did not isolate today. Client to continue IOP to prevent decompensation and increase healthy coping skills to manage symptoms.
--- NOTE | 2018-12-25 11:16 | BH.SGPN.GN ---
Behaviors/Verbalizations/Mental Status: [Eye contact is good. Motor activity is appropriate. Appearance is casual. Speech is Appropriate, soft. Mood is anxious, dysthymic. Affect is congruent with mood. Thoughts are linear and logical. No evidence of psychosis.] Client Response/Progress/Benefit: [Pt was an active participant in group activity and discussion, played an active role throughout activity and challenged self to step outside of comfort zone in doing so. Pt worked with the group to complete the challenge activity and identify barriers encountered that may also impact managing stress in daily life. Identified barriers as feeling overwhelmed, self-doubt, and frustration over failures. Pt worked with the group to identify strategies for coping with stress which included; using supports, taking a break, and processing with others to gain perspective. Benefited from identifying personal barriers to managing stress, impact of stress on mental health, and stress management strategies. Pt indicated wanting to work on current stressor of disorganization by setting a small goal to donate five clothing items. Pt to continue in IOP to maintain safety, stabilize mood, and continue to decrease anxiety and intrusive thoughts causing guilt.] Narrative Note: []
--- NOTE | 2018-12-28 09:01 | BH.SGPN.GN ---
Behaviors/Verbalizations/Mental Status: [Eye contact is good appearing tearful when discussing stressor. Motor activity is appropriate. Appearance is casual and comfortable. Speech is Appropriate. Mood is anxious and depressed. Affect is congruent. Thoughts are ruminative in nature, preoccupied by current stressors. No evidence of psychosis. Reviewed daily check in sheet with no reports of suicidal ideations or intent.]] Client Response/Progress/Benefit: [Pt engaged in group discussion, processed with group and actively listening throughout. Emotion for today is let down and indicated that this is related to current stressor. Pt explained that she spent time with an old friend in a group setting and ended up feeling ignored and like she was not wanted. Pt reports attempting to speak with the friend about it but was not successful. Able to identify that addressing the concern is progress but continues to ruminate on feeling as though she had been intentionally treated poorly. Struggled in challenging potential distortions or identify strategies for readdressing concern with support. Did well to identify mental health positives and indicated spending quality time with her as well as continuing to work on applying skills learned despite struggling at times to do so. Benefited from support of the group environment and being challenged to identify positives. Will continue in IOP to prevent decompensation, continue to reduce anxiety, and promote consistent skill application.] Narrative Note: []
--- NOTE | 2018-12-28 10:20 | BH.SGPN.GN ---
Behaviors/Verbalizations/Mental Status: []Client alert and oriented, neatly dressed and groomed. Eye contact good. Motor activity appropriate. Speech WNL. Affect congruent, mood anxious. Thoughts linear, logical, no signs of hallucinations or delusions. Client Response/Progress/Benefit: []Client responded well to session, provided input at times, listened attentively to others. Client connected with the topic of failure and famous people that have overcome setbacks. Client reported she views being able to overcome a setback as a win. Client reported if view failure as a challenge it can motivate you to overcome the setback.?Client nodded that fear of failure can lead to giving up, worse mental health, and self-destructive behavior. Client engaged in a group activity that encouraged the group to overcome fear of failure and challenge their perspective of failure. Client was positive and accepted help from group members during activity. Client appeared to benefit from gaining awareness of how fear of failure negatively impacts mental health. Client is showing progress in expressing thoughts and improved awareness of distorted thoughts. However, she continues to struggle with guilt about past choices which reinforce anxiety and depression. Narrative Note: []
--- NOTE | 2018-12-28 11:19 | BH.SGPN.GN ---
Behaviors/Verbalizations/Mental Status: []Client alert and oriented, casually dressed and groomed. Eye contact good. Motor activity appropriate. Speech within normal limits. Affect constricted, mood depressed, anxious. Thoughts linear, logical, no signs of hallucinations or delusions. Client Response/Progress/Benefit: []Client responded well to session, taking notes and verbally participating. Client further processed the group activity and shared she was often harder on herself than others. The group recognized that overcoming fear of failure means being able to be kind to themselves. Client completed the fear of failure worksheet and reported that fear of failure is keeping her from being around people and making her family happy. Client reported her barriers for overcoming her fear of failure are fear of disappointing others, difficulty communicating, mind-reading, and fear of maintenance. Client shared she has been able to bounce back from setbacks in the past and the positive thing she has learned from past failures is ?there is going to be a tomorrow.? Client selected a goal to help her overcome her fear of failure. Client?s goal is to practice accepting things she cannot change. Client appeared to benefit from gaining awareness and setting a goal to reduce fear of failure. Client showing progress in learning coping skills, but she continues to struggle with setting boundaries and recognizing distorted thought patterns.
--- NOTE | 2018-12-29 09:02 | BH.SGPN.GN ---
Behaviors/Verbalizations/Mental Status: [Eye contact is good. Motor activity is WNL. Appearance is casual. Speech is appropriate rate and tone. Mood is euthymic, calm. Affect is congruent. Thoughts intact, linear and logical. No evidence of psychosis. Reviewed daily check in sheet with no reports of suicidal ideations or intent] Client Response/Progress/Benefit: [Client attentive and providing input throughout. Emotion for today is content as she noted she is feeling more positive and has had better interaction with her daughter which is one of her positives for the day. Shared with the group that she finds she is more confident in her ability to set some boundaries and assert her opinion with her supports. Additional mental health positive of her supports following through with client requests and respecting her request of wanting them to allow her to do things on her own and that they can do things without her. Described current stressor as anxiety about her birthday being on Tuesday as she indicated not enjoying birthdays or the idea of getting older. Progress noted in her ability to identify positives and regulate her emotions while discussing current stressors. Recommended continued IOP tx to maintain stability, decrease anxiety and improve overall self-esteem, as well as prevent decompensation. ] Narrative Note: []
--- NOTE | 2018-12-29 10:20 | BH.SGPN.GN ---
Behaviors/Verbalizations/Mental Status: [] Eye contact is good. Motor activity is appropriate. Appearance is casual. Speech is Appropriate. Mood is anxious. Affect is congruent. Thoughts are linear and logical. No evidence of psychosis. Client Response/Progress/Benefit: [] Pt was an active participant in group discussion and activity. Worked with the group to identify negative coping skills which increase MH symptoms such as; addiction, isolation, avoidance, sleeping to escape, anger outbursts, and impulsive behaviors. Group also identified barriers or obstacles that keep us in unhealthy coping skills such as; lack of awareness of healthy coping, immediate gratification, unhealthy feels comfortable, challenging to change what we are used too, being in negative relationships, and distorted thinking. Participated in experiential activity and processed the activity with the group. Through processing of activity group identified some strategies which helped them overcome barriers during the activity. Able to identify how strategies used such as communication, focus, and mindfulness could also be beneficial positive coping skills. Started to categorize internal vs external coping skills. Benefited from group through identification of unhealthy coping skills, barriers to overcoming unhealthy coping skills, psycho-education on external vs internal coping skills, and coping strategies. Will continue in IOP to prevent decompensation, stabilize mood, provide support, and decrease depression/anxiety. Narrative Note: []
--- NOTE | 2018-12-29 11:20 | BH.SGPN.GN ---
Behaviors/Verbalizations/Mental Status: []Pt eye contact good, casually dressed, motor activity appropriate, speech normal rate and tone, mood anxious, congruent affect, thoughts linear and intact, no evidence of delusions or hallucinations. Client Response/Progress/Benefit: []Pt attentively listened to others and contributed to discussion at times. Pt connected with other coping skills group members shared and added several healthy coping skills during group brainstorm. Pt identified she is willing to practice the following coping skills to increase her healthy skills toolkit: puzzles, funny movies, self-care, cooking a meal, and drawing. Pt seemed to benefit from increasing repertoire of healthy coping skills. Pt progressing with managing her emotions however continues to struggle with managing anxious thought patterns. Pt to continue IOP level of care to identify and challenge distorted thoughts, continue utilization of healthy coping and prevent decompensation. Narrative Note: []
--- NOTE | 2018-12-29 15:55 | PCM.PN.BLA ---
Progress Note Chief Complaint: Recent is a 73-year old female who is an active participant in the intensive outpatient mental health treatment program at [facility]. She has a history of bipolar disorder and anxiety. History of Present Illness/Interim History: The patient states that she has had some ups and downs in her mood. She spends days when she is depressed and has crying spells. On other days she feels pretty good. She has had no excessively high days. She is found the intensive outpatient groups to be extremely helpful and has learned many tools to help her cope. She said her has noticed the difference. Upon inquiry, she admits that she has not been taking her medicines as prescribed. She feels overwhelmed by having to take so many medicines. She is now trying to be more regular in her compliance. Her anxiety level has been steady. She decided she didn't want to take the Latuda I had prescribed at our last visit. She wants to take fewer medicines, not more. Current Psychiatric Medications: Wellbutrin SR 150 mg twice daily, Cymbalta 30 mg daily, BuSpar 15 mg twice daily Review of Symptoms: Psychiatry: Periods of depression per HPI. She is not suicidal. There is no psychosis. She is cognitively intact. Constitutional: She is overweight and her weight has been steady. Her energy level is fair. Mental Status Examination: She presents as elderly woman who is neatly dressed and groomed. Her emotions are stable. Is not suicidal. There is no psychosis. She is cognitively intact. Diagnoses: Outlook I: [] Bipolar disorder, depressed type; anxiety disorder unspecified Outlook II: None Outlook III: Overweight, asthma, hypercholesterolemia, prediabetes, neuropathy, status post facial injury Plan: I am increasing Wellbutrin simplifying to the XL milligrams dose. I am continuing participation with Cymbalta and BuSpar at their current doses. The patient will continue in the intensive outpatient groups. I will see her again for follow-up.
--- NOTE | 2018-12-30 15:02 | BH.MDN_ITS ---
Multi-Disciplinary Note - Note 45-min Individual Time Started:: 12:31 Date: 12/28/18 Purpose of session/treatment goals addressed:: Purpose of session was to assess pt's current symptoms and stressors. Other topics: challenging thought patterns, psychoeducation about impact of anxious thought patterns, and goal setting. Eye Contact:: Good Motor Activity:: Restless Appearance:: Casual Speech:: Appropriate Mood:: Anxious, Depressed, Other - tearful Affect:: Labile Thoughts:: Racing, Other - slow to respond at times and difficulty organizing her thoughts at times., No evidence of hallucinations/delusions noted Staff Interventions:: Therapist used open ended questions to elicit pt's current symptoms and stressors. Therapist processed recent stressor, assisting pt with identifying distorted thought patterns. Therapist provided psychoeducation about impact thoughts have on emotions and behavior. Therapist helped pt identify anxious thoughts and assisted pt with challenging and reframing thoughts. Client Response:: Client responded well to session as evidenced by client openly sharing thoughts and feelings. Client shared she went to a concert with her friend. Client reported her friend had other friends at the show as well. Client shared she went for a drink after the show and felt like the fifth wheel because she didn't feel included in the conversation with her friend and the other people that went out with them. Client repoted she kept thinking I'm intruding and was upset that her friend didn't attempt to include client in the conversation. With therapist assistance client able to recognize she was min dreading and making assumptions while out with her friend. Client admitted she didn't attempt to include herself in the converastion and was stuck in her head. Client shared she is constantly anxious because she is worrying about what others are thinking about her. Client connected with education that her thoughts impact her emotions when then impact her behavior. Client shared she will have anxious thoughts usually about worry she is being judged which then result in her feeling anxious and she will shut down. Client agreeable to complete thought log to increase awareness and insight into how her thought patterns impact her emotions and behavior. Client stated she completed her homework from group and individual sessions by getting rid of the magazines on her couch and picking 5 clothing items to get rid of. Client stated her next goal is to wash the cover of her couch. Risks/Concerns:: Client denies suicidal ideation, plan or intention to date. Progress Toward Goals/Plan:: Client has progressed with completing homework by accomplishing small goals client set in indiviudal and group session. Client being able to complete identified goals demonstrates progress because she has been struggling with finishing projects or tasks due to being easily distracted. Client continuing to struggle with managing anxious thoughts which impact her ability to communicate and result in passive behavior. Client to continue IOP level of care to decrease anxiety, increase ability to challenge anxious thoughts and prevent decompensation. Time Stopped:: 13:15
--- NOTE | 2019-01-04 09:47 | BH.TPR ---
Treatment Plan Review Date of Admission:: 12/04/18 Date of Treatment Plan Review:: 01/04/19
--- NOTE | 2019-02-02 09:06 | BH.NA_ITS ---
Physical Data - Vital Signs Pulse Rate: 76 Respiratory Rate: 14 Blood Pressure: 137/84 - Height/Weight Height: 1.49 m Weight:: 84.368 kg Weight in Pounds: 186.0 lbs Current Medication Compliance - Medication Compliance Do you take your medication as prescribed?: Yes Do you need assistance with taking medication?: No Have you had side effects from medication?: No Nutritional History - Appetite Nutritional Instructions:: If client shows signs of a swallowing problem, weight change of 10 pounds or more in the last month, or is on a diabetic diet, the physician will review and request a dietitian consult, as appropriate. All unintentional weight loss will be referred to the physician for decision on need for dietitian consult. Describe your appetite:: Fair Have you noticed a change in your eating habits lately?: No Functional Assessment - Sleep Pattern Describe any problems with sleeping: Reports difficult falling and staying asleep - Activities Motor Activity:: Functional Sensory/Communication Assess - Vision Problems Do you have any vision problems?: Glasses - Hearing Problems Do you have any hearing problems?: Adequate - Communication Problems Do you have difficulty understanding what people are saying?: No Do you have trouble putting your thoughts into words or expressing what you want to say?: Yes Do people ever have trouble understanding what you say?: No What is your primary language?: Nepalese Learning Assessment - Learning Barriers Learning Barriers:: Ready to learn Medical Problems/History - Cardiac Conditions Cardiovascular: Hypertension, Hyperlipidemia - Respiratory Conditions Respiratory: Asthma - Metabolic Conditions Metabolic: Diabetes - Musculoskeletal Conditions Musculoskeletal: Arthritis - Cancer History Type of Cancer:: Breast - Pain Assessment Do you have acute or chronic pain?: Yes - Female Reproductive Do you think you may be ?: No Number of pregnancies:: 1 Number of children:: 1 Have you reached menopause?: Yes Surgical History - Surgical History Have you had any surgeries? If so, list type and date:: Yes - see PMHx in Summary Substance Abuse - Substance Abuse Please describe substance abuse in the last 30 days:: Client denies ETOH, illicit substance, and tobacco use. Mental Status Summary - Mental Status Significant Findings/Observations on Appearance and Mood:: Dionne is a 74-year-old female who appears her stated age. She is cooperative with interview, makes good eye contact. Normal activity, slow, shuffling gait. She is neatly dressed with good hygiene and grooming. Speech is clear and of normal rate and volume. She is intermittently tearful during interview. Moderate depression, mild anxiety. Mood congruent affect. No symptoms of delusions. Denies SI, hallucinations, and HI. She has had passive thoughts over the past several months. Suicide Assessment - Suicidal Ideation Are you currently or have you been suicidal in the past?: No Suicidal Intentional Rating Scale (SIRS): Suicidal thoughts (past) Physician Notification: If Active suicidal thoughts/Will not contract for safet y is checked, contact physician and document in the Physician Notification section below. Past Psychiatric History - MH Treatment Hx Past Psychiatric Medications:: Depakote, lithium Age of first mental health symptoms: around 19 Fall Risk Assessment - Age Age: 72 or older - Mental Status Mental Status: Willing & able to ask for assistance when needed - Physical Status Physical Status: No problems - Impairments Impairments: None - Elimination Elimination: Continent AND independent - Gait or Balance Gait or Balance: Walks independently - Hx of Falls History of falls in the past 6 months: Has fallen - Medications/Substances Psychotropics:: Antidepressants Others:: Antihypertensives Medications/substances used within the past 24 hours or ordered to administer: 3 or more of the medications/substances listed above - Total Score Total Points:: 6 Physician Notification - Physician Notification Physician Notified: Gary Lopez Method of Notification: Face to Face Comments: treatment planning discussion RN Summary of Impressions - Impressions Recommendations: Include psychiatric and medical issues, treatment planning recommendations, and discharge planning needs. Impressions: Psychiatric Issues: Client notes that she was diagnosed with bipolar disorder years ago and has struggled for 50 years with it. Impression: General Medical Conditions: DM2, HTN, HLD, asthma, osteoarthritis - Level of Care How do the client's current symptoms and functional deficits support need for this level of care?: Client notes a significant decompensation of her mood symptoms for approximately 5 months with a progressive decline. She reports severe mood swings, crying spells, and panic attacks. Dionne reports some impulsive behavoirs intermittently with increased spending. Overall she reports decreased energy. All of these symptoms are causing stress in her marriage and relationships with her family.
[2019-02-16 12:38] VITALS: BP 137/84; PULSE 76; RESP 14
== END 2018-12-31 23:59 ==
LOC: BHIOP 08:26
PROVIDERS: Family Provider Physician Assistant; PCP Physician Assistant; Referring Provider Psychiatry & Neurology Psychiatry; Visit Provider Psychiatry & Neurology Psychiatry
DX: F31.9 Bipolar disorder, unspecified (principal); F41.9 Anxiety disorder, unspecified; Z85.3 Personal history of malignant neoplasm of breast; R73.03 Prediabetes; R45.851 Suicidal ideations; J45.909 Unspecified asthma, uncomplicated; G62.9 Polyneuropathy, unspecified; E78.00 Pure hypercholesterolemia, unspecified; E66.3 Overweight; Z79.899 Other long term (current) drug therapy; Z79.84 Long term (current) use of oral hypoglycemic drugs
CPT/HCPCS: H0035; 90834; 90837; 90853

== ENCOUNTER 2019-01-01 09:00 | Outpatient (RCR) | payer MEDICARE, OTHER, SELFPAY ==
[2018-06-08 09:35] VITALS: BMI 36.1
--- NOTE | 2019-01-01 09:05 | BH.SGPN.GN ---
Behaviors/Verbalizations/Mental Status: [] Eye contact is good. Motor activity is appropriate. Appearance is neat. Speech is rapid/pressured. Mood is euthymic. Affect is full. Thoughts are linear and logical. No evidence of psychosis. Reviewed daily check in sheet and no reports of suicidal ideations or intent Client Response/Progress/Benefit: [] Pt was an active participant in group discussion. Emotion for today was anxious. Presented as very excited about news. Had trouble sitting still. Possibly hypomanic however unsure if just excited. At one point got up and acted out a scene to a play. Was on topic however perhaps inappropriate for group. Was able to be re-directed. 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 Talked about being anxious. Group normalized this type of anxiety. Had dinner with her daughter which went well. Reports continued improvement in Thier relationships which was primary stressor in the past. Completed goals this weekend and feels confident. Benefited from group praise, encouragement, and feedback. Will monitor mood for remainder of the day. progress noted per pt report. Will continue in IOP to prevent decompensation, stabilize mood, and improve coping skills. Narrative Note: []
--- NOTE | 2019-01-01 10:15 | BH.SGPN.GN ---
Behaviors/Verbalizations/Mental Status: [] Eye contact is good. Motor activity is appropriate. Appearance is casual. Speech is Appropriate. Mood is anxious. Affect is congruent. Thoughts are linear and logical. No evidence of psychosis. Client Response/Progress/Benefit: [] Pt was an active participant in group discussion and activity. Group worked together to identify the benefits of setting goals which included; having something to strive for, can be a positive motivator, can give a sense of purpose and accomplishment, can increase happiness and feeling of being proud, and can hold us accountable. Group discussed the barriers to following through with completing a goals which included; fearing change, lack of motivation, fear of failure, shame, disappointment, lack of support, and negative thoughts or emotions get in the way. Pt was attentive during psychoeducation on developing SMART (Specific, Measurable, Achievable, Realistic, Timely) goals as a tool to help with goal setting. Benefited from group by learning effective strategies for goal-setting and identifying barriers to completing goals. Narrative Note: []
--- NOTE | 2019-01-01 11:20 | BH.SGPN.GN ---
Behaviors/Verbalizations/Mental Status: []Pt eye contact good, casually dressed, motor activity restless, speech normal rate and tone, mood anxious, congruent affect, thoughts linear and logical, no evidence of delusions or hallucinations. Client Response/Progress/Benefit: []Pt listened attentively to others and contributed thoughts and ideas to discussion. Client identified her small SMART goal is to work for 30 minutes in her craft room first cleaning off her desk then put items that she wants to throw away into a bin. Client stated this goal will benefit her by being able to actually use her craft room which will improve her mood. Pt identified time to be potential barrier to achieving identified goal, stated she can overcome this barrier by setting a timer and include it in her daily routine. Pt shared another barrier would be worries/rumination that she should be doing something else which she identified reminding herself of the benefits as a strategy to overcome this barrier. Pt reported another barrier could be daughter's pressure to do what daughter wants to do, which pt identified setting boundaries as a strategy to work through that barrier. Pt receptive to help from peers and therapist to make her goal more focused and specific. Pt progressing with being able to follow through with set goals AEB pt completing several goals she has set in group before. Pt seemed to benefit from identifying a SMART goal and identifying ways to help overcome potential barriers. Pt to continue IOP level of care to decrease anxiety, continue to use healthy coping and cognitive restructuring, and prevent decompensation. Narrative Note: []
--- NOTE | 2019-01-04 09:05 | BH.SGPN.GN ---
Behaviors/Verbalizations/Mental Status: []Client alert and oriented, neatly dressed and groomed. Eye contact good. Motor activity appropriate. Speech within normal limits. Affect constricted, mood anxious. Thoughts linear, logical, no signs of hallucinations or delusions. Reviewed client?s symptom tracker, no risk for suicidal ideation, plan, or intent as of 01/04/19. Client Response/Progress/Benefit: []Client responded well to session, receptive to feedback. Client reports feeling ?anxious with knots and butterflies? today. 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 Client stated some of the anxious thoughts she has about her comedy show and the group helped her combat the them. Client?s current mental health win is she set boundaries with her family and ?I didn?t break down.? Client appeared to benefit from receiving support and thought challenge from peers. Progress noted as client is more receptive to thought challenging, however, she continues to struggle with emotional dysregulation and managing anxiety. Client to continue IOP to increase consistent use of internal coping skills and reduce negative thoughts.
--- NOTE | 2019-01-04 10:21 | BH.SGPN.GN ---
Behaviors/Verbalizations/Mental Status: [Client eye contact good, grooming and attire casual, motor activity WNL, speech normal rate and tone , mood anxious and euthymic, congruent affect, thoughts linear and intact, no evidence of delusions or hallucinations] Client Response/Progress/Benefit: [Client responded well to session, positive contributions to discussion and appearing to make connections with input provided by fellow participants. Client engaged in the discussion of what it means to ?take action? in one?s mental health treatment and expressed that doing so can prevent from staying stuck and increase self-confidence. Client agreed with peers that to make change, one needs self-awareness, motivation, and support. Client identified things in her life she wants to start taking control over and change. These things included: negative thinking, lack of self-confidence, difficulties saying no, and anxiety. Client appeared to benefit from identifying things that are holding her back from mental wellness and learning what it means to ?take action.? Progress in increased levels of personal awareness regarding current barriers to mental health progress. Continued IOP tx recommended to increase self-confidence and motivation, decrease anxiety, and prevent decompensation.] Narrative Note: []
--- NOTE | 2019-01-04 11:20 | BH.SGPN.GN ---
Behaviors/Verbalizations/Mental Status: []Pt eye contact good, casually dressed, motor activity appropriate, speech normal rate and tone, mood anxious, congruent affect, thoughts linear and intact, at times confused, slow to process information, no evidence of delusions or hallucinations. Client Response/Progress/Benefit: [] Client engaged, provided input to the group however struggled with staying with the group often needed one on one assistance to help with 30 day plan. Client identified for her action plan she wants to focus on decreasing fear of what others think about her. Client reported this would benefit her because she can improve her view of herself and increase self-confidence. Client shared three small steps towards this goal she plans to take in the next 30 Days include: say positive affirmation every morning I am a good person, write in her journal positive affirmations and go to [place] [employer] [place] three times a week to socialize. Progress noted in her ability to continue to work on her plan despite becoming confused by asking for help. She benefitted from reflecting with the group on the importance of taking small actionable steps towards addressing barriers and making notable changes in her life. Recommend continued IOP to continue use of healthy coping, increase self-confidence in decision making and prevent decompensation. Narrative Note: []
--- NOTE | 2019-01-05 09:01 | BH.SGPN.GN ---
Behaviors/Verbalizations/Mental Status: []Client alert and oriented, casual dress, hygiene tended to. Eye contact good. Motor activity appropriate. Speech within normal limits. Affect bright, mood happy. Thoughts linear, logical, no signs of hallucinations or delusions. Reviewed client?s symptom tracker, no signs of suicidal ideation, plan, or intent as of today. Client Response/Progress/Benefit: []Pt was attentive AEB good eye contact and nodding throughout, provided input when elicited by therapist. Emotion for today is silly and hyper. Stressor identified as pt's not responding well to pt's comments about feeling guilty for not including their daughter on vacation will be taking. Pt stated when her dropped her off at therapy he told her you really need this today because she was being hyper and talking a lot. Pt stated she has a lot of energy, but thought she had communicated her thoughts effectively to her . Mental health win identified as surprising her with her favorite salad yesterday for lunch. Additional win is going to [place] [place] to meet up with friends and engage in something she used to do frequently. Pt seemed to benefit from expressing emotions and support from peers. Recommended to continue IOP tx to stabilize moods, prevent decompensation, and continue to set healthy boundaries. Narrative Note: []
--- NOTE | 2019-01-05 10:05 | BH.SGPN.GN ---
Behaviors/Verbalizations/Mental Status: [] Eye contact is good. Motor activity is appropriate. Appearance is casual. Speech is Appropriate. Mood is anxious. Affect is congruent. Thoughts are linear and logical. No evidence of psychosis. Client Response/Progress/Benefit: [] Pt was an active participant in group activity and discussion. Worked with the group to define anger and its causes. Completed worksheet identifying internal impacts of unhealthy anger which included; anxiety, somatic sensations, hopelessness, shame, guilt, hurt feelings, and poor self-esteem. Pt reports external impact og unhealthy anger as; pushing others away, loosing support, people change how they react to you, and cant's take back hurtful words. Benefited from group by identifying that internal and external impact of unhealthy anger. Narrative Note: []
--- NOTE | 2019-01-05 11:04 | BH.SGPN.GN ---
Behaviors/Verbalizations/Mental Status: [Client alert and oriented, neatly dressed and groomed. Eye contact good. Motor activity appropriate. Speech within normal limits. Affect congruent, mood euthymic and anxious. Thoughts linear, logical, no signs of hallucinations or delusions] Client Response/Progress/Benefit: [Client responded well to session, providing supportive feedback and positive contributions. Client participated in group activity and did well to challenge herself to keep trying despite frustrations and anxiety. Able to connect how skills used in activity relate to those utilized when managing anger. Shared that it takes positive self-talk, encouragement from others, and deep breathing strategies to remain regulated. Group identified strategies for effectively managing anger which included; checking-in with oneself, taking breaks as needed, slowing down, and using calming and mindfulness skills. Indicated she has struggled with using healthy anger management skills in the past and expressed that this has caused her to say things she didn?t mean to others or give up. Client helped the group identify coping skills to more effectively manage anger and potential benefits of anger management. Client appeared to benefit from gaining coping skills to more effectively manage anger. Will continue IOP level of care to promote gains, further improve anxiety management and emotion regulation strategies.] Narrative Note: []
--- NOTE | 2019-01-05 13:16 | BH.MDN_ITS ---
Multi-Disciplinary Note - Note 45-min Individual Time Started:: 12:13 Date: 01/05/19 Purpose of session/treatment goals addressed:: Purpose of session was to assess pt's current symptoms and stressors. Other topics addressed: identifying wants in relationship, grounding, and progress since starting IOP. Eye Contact:: Good Motor Activity:: Restless Appearance:: Casual Speech:: Appropriate Mood:: Anxious Affect:: Labile Thoughts:: Logical, Racing, No evidence of hallucinations/delusions noted Staff Interventions:: Therapist used open ended questions to elicit pt's current symptoms and stressors. Therapist processed recent stressor involving pt's qi cunningham, gently challenged pt's distorted thought patterns. Therapist assisted pt with identifying negative impact lack of communication has on her mental health. Therapist elicited pt's wants in her relationship with . Therapist asssited pt with challenging negative and guilty thought patterns. Therapist reviewed grounding tools to assist with bring pt to the here and now. Client Response:: At start of session pt became tearful stated sometimes I feel like a clown because I act silly to mask how I really feel. Pt agreed she often uses humor to mask her thoughts and feelings. Pt reported she is feeling frustrated with her because she feels he will do things for their daughter, but gets mad if pt asks for the same things. Pt shared in the past she has communicated some of her thoughts to her , but stated she does it in the wrong way because often waits until she is angry then will say something. Pt reported she has been trying to think before she talks by taking a breathe before responding which she stated has been working. Pt responded well to having her distorted thought patterns challenged by therapist, recognizing she was mind reading or predicting the future. Pt reported in her relationship with her she wants to have better communication and be able to do things together without her saying they need to hide it from their daughter. Pt stated she is unsure about having a family session with her because she is worried her will get upset with her. Pt shared she gets anxious about upsetting her because she has fear something bad will happen to him then she doesn't know what she would do because he does so much for her. With assistance from therapist pt identified she was catastrophizing and predicting the future. Pt recognized since she moved to [place] she has kept many of her thoughts and feelings inside, which she can now see how it has negatively impacted her. Pt responded well to identifying statements she can say to herself to combat gulity thoughts when she ruminates about her past decisions. Pt connected with using grounding tools to help her get back to the here and now when she recognizes she is ruminating on the past or worrying about the future. 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 Pt stated she is trying to get back into the activities she used to enjoy doing. Risks/Concerns:: Pt denies suicidal ideation, plan or intention to date. Progress Toward Goals/Plan:: Pt is progressing with using healthy coping skills to manage her emotions before she speaks. Pt has improved awareness of her cognitive distortions. Pt progressing with setting boundaries with daughter and increasing social network by getting involved with activities she used to enjoy doing. Pt struggles with recognizing distortions and reframing the thoughts independently, needs coaching by therapist. Pt often gets stuck ruminating about her past decisions which results in feeling guilty. Pt to continue IOP level of care to increase confident, prevent decompensation and continue to work on identifying and reframing distorted thought patterns. Time Stopped:: 12:52
--- NOTE | 2019-01-05 16:35 | BH.MTP_ITS ---
Treatment Plan Review Date of Admission:: 12/04/18 Date of Treatment Plan Review:: 01/04/19 Admitting Diagnoses:: F 31.9 Bipolar disorder, unspecified type, anxiety disorder unspecified Current Diagnoses:: F 31.30 Bipolar disorder, current episode depressed unspecified; anxiety disorder unspecified Patient's Response to Treatment:: Pt consistently attends IOP sessions. Pt often actively engaged in group sessions by contributing thoughts and feelings during discussion, engaging in activites, and putting forth effort to apply skills learned outside the treatment environment. Pt does struggle at times with completing assigned homework from both indiviudal and group sessions. Status of Current Problems and Symptoms: Pt currently struggling with managing anxious symptoms as evidenced by pt often arriving to IOP in an anxious state and needing assistance from staff to manage anxiety. Pt struggling with setting boundaries especially with daughter due to gulit from pt's parenting decisions when she was younger. 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 By setting small goals pt has been able to make progress with completing some projects and tasks. Pt continues to struggle with emotional regulation, able to use skills at times but not on a consistent basis. Pt denies suicidal ideation, plan or intention. Pt medication compliant. Problem #1 Problem Name:: Increase mood stability and decrease depressive symptoms Status of Goals:: Objective 1 - pt has made progress but has not met object of identifying and replace distorted thoughts. Pt has shown increased awareness of distorted thought patterns and is able to identify her distortions at times. Pt continues to struggle with being able to independently reframe or challenge distorted thoughts. Objective 2 - pt has made progress with reduction in both depressive and manic symptoms as evidenced by pt's self-report scores on the DSM 5 cross-cutting measure questionnaire. On the depression subscale at intake pt scored a 7/8 with, 8 representing severe, amd at review pt scored a 4 out of 8. On the sondra subscale at intake pt scored a 7/8 with, 8 representing severe, amd at review pt scored a 4 out of 8. Pt has recently shown warning signs of hypomania which pt seems to lack awareness of her symptoms. Team Recommendations:: It is recommended pt continue current goal and objective due to goals and objectives not being completed. Plan is to schedule a family session given some mental health symptoms are associated with feelings and thoughts pt has not expressed to her . Will continue to focus on identifying and challenging distorted thought patterns. Problem #2 Problem Name:: Stabilize anxiety level while increasing ability to function Status of Goals:: Objective 1 - Pt has not met objective of learning and applying at least 2 healthy coping skills to manage anxiety. Pt is able to verbalize healthy coping skills but struggles with applying those skills in the moment to reduce anxiety. Objective 2 - Pt has made progress with reduction of anxious symptoms as evidenced by pt's self-report scores on the DSM 5 cross- cutting measure questionnaire. On the anxiety subscale at intake pt scored a 12/12, with 12 representing severe, and at review pt scored a 8/12. Pt is reporting decrease in anxiety however continues to manage anxiety on a consistent basis. Anxiety continues to negatively impact her daily functioning by frequently questioning her own thoughts, not communicating her thoughts and feelings to others, and difficulty making decisions often out of worry that she will hurt someon else's feelings. Team Recommendations:: It is recommended pt continue current goal and objective due to goals and objectives not being completed. Plan is to schedule a family session given some of the mental health symptoms are associated with feelings and thoughts pt has not expressed to her . Will continue to focus on utilizing healthy coping skills in the moment to manage anxiety on a more co nsistent basis.
--- NOTE | 2019-01-08 09:05 | BH.SGPN.GN ---
Behaviors/Verbalizations/Mental Status: []Client alert and oriented, neatly dressed and groomed. Eye contact good. Motor activity appropriate. Speech within normal limits. Affect full, mood euthymic. Thoughts linear, logical, no signs of hallucinations or delusions. Reviewed client?s symptom tracker, no risk for suicidal ideation, plan, or intent as of 01/08/19. Client Response/Progress/Benefit: []Client responded well to session, positive to peers and active. Client reports feeling ?confident? today after having a good time out with friends. Client shared she went to [employer] with her friends and ?changed the attitude of the place.? 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 With therapist elicitation, client was able to recognize use of distorted thoughts and combat them using thought challenging techniques. Client appeared to benefit from challenging distortions in the moment and reflecting on mental health wins. Progress noted as client reports increased socialization, but she can continue to increase mood stability.
--- NOTE | 2019-01-08 10:18 | BH.SGPN.GN ---
Behaviors/Verbalizations/Mental Status: [Client alert and oriented, casually dressed and neatly groomed. Eye contact good. Motor activity appropriate. Speech normal rate and tone. Affect congruent, mood anxious, euthymic - at times appearing confused by materials discussed. Thoughts linear, logical, no signs of hallucinations or delusions. ] Client Response/Progress/Benefit: [Client responded well to session, providing input throughout and reports connecting with examples provided by the group. Client indicated connecting with the topic of cognitive distortions and discussed with the group ways in which thoughts can impact on mental health and result in increased self-esteem. Client aided the group in defining and reflecting upon various types of distortions, indicating that she has utilized various distortions described. 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 Client went on to describe thoughts that she will embarrass herself. Client benefitted from increasing awareness of how the impact of cognitive distortions has impacted her mental health and led to increased fear and self-doubt in the past. Progress in her ability to better understand personal distortions and potential consequences experienced as a result. Client recommended continued IOP tx to maintain stability, continue to work on application of skills learned, and increase self-esteem levels.] Narrative Note: []
--- NOTE | 2019-01-08 11:25 | BH.SGPN.GN ---
Behaviors/Verbalizations/Mental Status: []Pt eye contact good, casually dressed, motor activity appropriate, speech normal rate and tone, slowed thought process at times, mood anxious, congruent affect, thoughts linear and intact, no evidence of delusions or hallucinations. Client Response/Progress/Benefit: []Client engaged in session as evidenced by client listening attentively to others and contributing thoughts to discussion. Client connected with discussion about needing to put effort into challenging distorted thought patterns because recognizes if doesn't try to challenge thoughts then nothing will change. Client identified mental filter to be the cognitive distortion that she most often uses. Client could relate to peers various distorted thought patterns. Client worked with peers to identify distortions and reframe the distorted thought to a realistic, rational thought. Client seemed to struggle with identifying and reframing distorted thoughts, needed assistance from peers throughout worksheet. Client progress could be hindered by client at times being confused or distracted during discussion and education. Client to continue IOP level of care to continue building healthy skills, set healthy boundaries with others and prevent decompensation. Narrative Note: []
--- NOTE | 2019-01-10 09:05 | BH.SGPN.GN ---
Behaviors/Verbalizations/Mental Status: []Client alert and oriented, neatly dressed and groomed. Eye contact fair-eyes closed for a brief moment. Motor activity appropriate. Speech within normal limits. Affect congruent, mood anxious, irritable. Thoughts linear, logical, no signs of hallucinations or delusions. Reviewed client?s symptom tracker, no risk for suicidal ideation, plan, or intent as of 01/10/19. Client Response/Progress/Benefit: []Client responded well to session, engaged throughout. Client reports feeling ?a little jittery? 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 Client shared her yelled at her, but ?I didn?t cry or lose my cool.? 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 Client?s current mental health wins include making extra money, managing her emotions with her , and getting diabetic shoes. Client appeared to benefit from challenging distorted thinking in the moment. Progress noted as client appears to have improved emotional regulation, but she continues to struggle with setting boundaries with her supports which reinforces negative thinking.
--- NOTE | 2019-01-10 10:15 | BH.SGPN.GN ---
Behaviors/Verbalizations/Mental Status: [] Eye contact is good. Motor activity is appropriate. Appearance is casual. Speech is Appropriate. Mood is depressed. Affect is flat. Thoughts are linear and logical. No evidence of psychosis. Client Response/Progress/Benefit: [] Pt was an active participant in group activity and discussion. Pt completed a drawing depicting her current reality which she is standing by a wall which she can't get over. States that she has the help of her however others are laughing at her. Migel herself as a clown as that is what she shows to the world when in reality she is actually sad. Worked with group to identify barrier to reaching desired reality which include; habit, unhealthy coping is easier, fear of failure, fear of changes, and sense of being vulnerable. Benefited from group as pt was able to identify current mental health state and barriers that are impacting progress. Narrative Note: []
--- NOTE | 2019-01-10 16:27 | BH.MDN ---
Multi-Disciplinary Note - Note Family Time Started:: 12:20 Date: 01/10/19 Purpose of session/treatment goals addressed:: Purpose of family session was to identify treatment progress pt's has observed, review skills pt has learned, and increase open communication between pt and her . Eye Contact:: Fair Motor Activity:: Restless Appearance:: Casual Speech:: Appropriate Mood:: Anxious Affect:: Congruent Thoughts:: Linear, Logical, No evidence of hallucinations/delusions noted Staff Interventions:: Therapist elicited pt's husbands thoughts about progress he has observed in pt since she started IOP. Therapist provided pt's with overview of skills pt has been working on which include challenging distorted thoughts, using healthy coping and setting boundaries.Therapist encouarged pt to express thoughts and feelings to her . Therapist facilitated discussion encouraging both pt and her to openly communicate with each other. Therapist led discussion about importance of pt openly communicating because distorted or anxious thoughts tend to hold pt back from communicating with . Therapist provided support by using active listening and validating emotions. Client Response:: Pt's reported he has noticed a lot of progress since pt has started the program. He identified progress to include pt being more relaxed, thinking before she acts and overall has seen improvement in her mood. Pt expressed to her that she feels he does more for their daughter then for pt. Pt provided examples that he seems to talk more with their daughter, will often side with daughter in arguements, and enables their daughter's behavior. Pt's expressed his thoughts in feelings in response to pt. Pt became tearful when expressed to she keeps thinking back to the time he pt that she didn't even want Ashlee (daughter). Pt's provided support to pt by holding her hand and reassured pt he didn't mean what he had said many years ago. Pt and pt's agreed it is important to have more open communication instead of keeping in their thoughts because of fear will upset the other person. Pt's agreeable to be supportive of pt setting some boundaries with their daughter instead of dropping everything to cater to their daughters wants and needs. Risks/Concerns:: Pt denies suicidal ideation, plan or intention to date. Progress Toward Goals/Plan:: Pt showing progress with openly communicating with her how she feels instead of allowing her worries about upsetting her to keep her from communciating. Pt also progressing with improved emotional regulation, improved communication skills with others, and improved mood. Pt continues to struggle with managing anxiety in the moment and reflects on past choices which results in guilt. Pt to continue IOP level of care to maintain gains, continue use of healthy coping, reframing distorted thoughts, and prevent decompensation. Time Stopped:: 13:20
--- NOTE | 2019-01-11 09:10 | BH.SGPN.GN ---
Behaviors/Verbalizations/Mental Status: [] Eye contact is good. Motor activity is appropriate. Appearance is neat. Speech is Appropriate. Mood is anxious. Affect is congruent. Thoughts are linear and logical. No evidence of psychosis. Reviewed daily check in sheet and no reports of suicidal ideations or intent. Client Response/Progress/Benefit: [] Pt was an active participant in group discussion. Emotion for today is jumpy and jittery. Shared with the group that she had a family session with her . Reports that the session went well and discussed the positive impact of the sessions in more detail. 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 She feels ready however is extremely stressed about the event. Overall remarks at the progress she has been making in IOP. Happy that her has also noticed her progress which has positively impacted their relationship. Shared that while she has made progress her anxiety, cognitive distortions, and depression continue to impact her daily. Progress noted. Benefited from group support, feedback, and praise. Narrative Note: []
--- NOTE | 2019-01-11 10:11 | BH.SGPN.GN ---
Behaviors/Verbalizations/Mental Status: [Client alert and oriented, casually dressed, hygiene good. Eye contact fair to good. Motor activity appropriate. Speech within normal limits. Affect congruent, mood euthymic, anxious. Thoughts linear, logical, no signs of hallucinations or delusions. ] Client Response/Progress/Benefit: [Pt responded well to session, providing feedback to discussion. Pt connected with the quote and expressed relating to the analysis provided by her peers. Pt agreed that ineffective communication can negatively impact mental health and relationships and stated that ?we must stop and think so that we don?t miscommunicate?. Pt helped the group discuss the different communication styles including the payoffs and costs of each. Shared relating to passive communication but indicated that she is working to improve her ability to advocate and speak up for herself. Pt recognized that ongoing lack of expression of needs could impact negative self-talk and cause guilt. Pt appeared to benefit from increasing awareness of how communication impacts mental health. Progress noted as client reports increased ability to use more assertive communication, but she continues to struggle with negative thinking patterns that reinforce anxiety and guilt. Recommended continued IOP tx to prevent decompensation, reduce anxiety, and promote effective communication skills and self-confidence.] Narrative Note: []
--- NOTE | 2019-01-11 11:20 | BH.SGPN.GN ---
Behaviors/Verbalizations/Mental Status: []Pt eye contact good, casually dressed, motor activity appropriate, speech normal rate and tone, mood anxious, congruent affect, thoughts linear and intact, no evidence of delusions or hallucinations. Client Response/Progress/Benefit: []Pt active participant AEB pt providing input throughout and attentive to others. Pt identified when she first started IOP she was using aggressive communication which she recognizes upset people in her life and increased conflicts. Pt stated she now communicates more assertively with others by thinking before she talks and being more respectful which pt reported has drastically improved her relationships with others. Pt engaged in activity and able to connect how indirect communication negatively impacts mental health and relationships. Pt identified her communication goal is to be assertive with her daughter and about her needs, instead of going along with what they want her to do. Pt seemed to benefit from increased insight into how her communication style impacts her mental health and relationships and brainstorming of strategies to improve communication. Pt progressing with verbalizing her thoughts and opinions to her family on a more consistent basis and re-engaging in activities she used to find enjoyable. Pt to continue IOP level of care to maintain gains, increase focus on the here and now versus reflecting on the past and prevent decompensation. Narrative Note: []
--- NOTE | 2019-01-18 09:00 | BH.SGPN.GN ---
Behaviors/Verbalizations/Mental Status: [] Eye contact is good. Motor activity is appropriate. Appearance is casual.Pt presents with neck collar due to fall yesterday. Speech is Appropriate. Mood is anxious. Affect is congruent. Thoughts are linear and logical. No evidence of psychosis. Reviewed daily check in sheet and no reports of suicidal ideations or intent. Client Response/Progress/Benefit: [] Pt was an active participant in group discussion. Emotion for today is irritable and anxious. 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 Smiling and proud of herself for following through. Significant stressor yesterday which involved her tripping and falling. This led to an ER visit and then a transfer to [facility]. Reports significant mood swings yesterday in relation to the events. Tearful stating that she broke her glasses which were significant to her and that she has to wear a neck collar which is uncomfortable. 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 Some regression noted yesterday however is utilizing skills to manage. Will continue in IOP to prevent decompensation, provided support, and stabilize emotions. Narrative Note: []
--- NOTE | 2019-01-18 10:00 | BH.SGPN.GN ---
Behaviors/Verbalizations/Mental Status: []Client alert and oriented, neatly dressed and groomed. Eye contact good. Motor activity appropriate. Speech within normal limits. Affect constricted, mood anxious. Thoughts linear, logical, no signs of hallucinations or delusions. Client Response/Progress/Benefit: []Client responded well to session, engaged in discussion and activity. Client discussed the quote and shared ?we are told some emotions are bad, so we don?t express them.? The group discussed how emotions are not good or bad, rather it is how one lucy with them. Client shared being able to cope with emotions in healthy ways improves relationships and ?helps us in the long run.? Client identified distortions, forgetting coping skills, and lack of focus as barriers to communicating emotions in a stressful situation. Client reported the benefit of being able to communicate during stressful situations is getting the support one needs and setting boundaries. Client participated in the activity and did well to work with others and provide clear communication. Client appeared to benefit from increasing awareness of how emotions can impact communication and practicing in the moment coping skills. Progress noted as client reports reduced depressive symptoms, but she continues to struggle with managing anxiety.
--- NOTE | 2019-01-18 11:00 | BH.SGPN.GN ---
Behaviors/Verbalizations/Mental Status: [Eye contact is good. Motor activity is appropriate. Appearance is casual and neat - pt wearing a neck brace due to recent injury. Speech is Appropriate. Mood is euthymic, anxious. Affect is congruent. Thoughts are linear and logical. No evidence of psychosis.] Client Response/Progress/Benefit: [Pt was an active participant in group discussion and zones of regulation activity, providing feedback to peers and using humor to engage the group. Pt attentive during psychoeducation on the 4 zones of regulation and provided input regarding common thoughts, feelings, and behaviors experienced in each zone. Benefited from increased education on zones of regulation or stages of alertness for emotions and healthy coping skills to use for each zone. Identified current zone as ?between the yellow and green? and indicated that this is because she is happy to be socializing but is still struggling with anxiety related to scheduling her appointments for her recent injury and planning for upcoming vacation. Able to identify strategies to incorporate so she can support herself in returning to the ?green zone? as reframing negative thoughts, asserting her boundaries, and applying positive self-talk statements when noticing increased anxiety. Progress noted in increased insight regarding current emotional state and ability to identify coping strategies. Recommended continued IOP tx to promote ongoing application of skills, decrease anxiety, and prevent decompensation. ] Narrative Note: []
--- NOTE | 2019-01-19 10:30 | BH.SGPN.GN ---
Behaviors/Verbalizations/Mental Status: []Client alert and oriented, neatly dressed and groomed. Eye contact good. Motor activity restricted due to neck brace. Speech within normal limits. Affect constricted, mood irritable, anxious. Thoughts linear, logical, no signs of hallucinations or delusions. Client Response/Progress/Benefit: []Client responded well to session, engage throughout session. Client appeared to connect with the topic of personal pitfalls and how they can prevent mental health progress. Client reported people stay ?stuck? because ?going on the better path is a risk.? Client identified barriers to making mental health progress such as not using coping skills. Client shared examples of personal pitfalls as ?going back to bed? when depressed. Client participated in the group activity and struggled at times to regulate her anxiety. Client was receptive to peer feedback. Client reflected that self-awareness and communication are both needed in order to avoid falling into personal pitfalls. Client appeared to benefit from increasing self-awareness. Progress noted as client reports reduced depressive symptoms since starting IOP, however, due to recent stressor client has been struggling with managing emotions.
--- NOTE | 2019-01-19 11:30 | BH.SGPN.GN ---
Behaviors/Verbalizations/Mental Status: []Client alert and oriented, casually dressed and groomed. Eye contact good. Motor activity appropriate. Speech within normal limits. Affect congruent to topic being discussed, mood anxious. Thoughts linear, logical, no signs of hallucinations or delusions. Client Response/Progress/Benefit: []Limited participation in group discussion, however was attentive and was seen nodding in agreement with group suggestions. Pt completed a worksheet where she identified her own personal pitfalls. Personal pitfalls included: lack of trust in others, doesn't believe in self, lack of self-esteem, wanting to left alone, and negative self-talk. Group worked together to identify strategies to overcome personal and general pitfalls which included: actively participating in mental health treatment, setting realistic expectations, positive self-talk, utilizing support system, reflection on past experiences, identifying coping skills that are effective and not effective, reframing, and challenging negative thoughts. Benefited from identifying personal and general pitfalls and strategies to over these pitfalls. Will continue in IOP to stabilize mood. Staff continues to provide support and education regarding depression and hypomania as well as encourage medication compliance. Narrative Note: []
--- NOTE | 2019-01-22 10:05 | BH.SGPN.GN ---
Behaviors/Verbalizations/Mental Status: []Pt eye contact fair, casually dressed, motor activity appropriate, speech normal rate and tone, mood dysthymic, constricted affect, thoughts linear and intact, no evidence of delusions or hallucinations. Client Response/Progress/Benefit: []Client passive participant, provided limited input during discussion, however appeared to attentively listen to peers. Client nodded that viewing situations as impossible can negatively impact one?s mental health. Client agreed with peers comments that seeing things as impossible sets you up to not try new things or to overcome difficult situations. Client nodded to others comments that some things appear impossible, but if keep trying likely can find a way to overcome or accomplish the difficult task. Client more quiet compare to previous group sessions. Client engaged in the group activity and the group did not complete the activity during second group. Despite lack of success, client did not appear to fall into fixed thinking pitfalls and stayed engaged. Client appeared to benefit from gaining awareness how viewing situations as impossible can negatively impact mental health progress. Client continues to struggle with worries about how others view her impact her own emotions. Client progressing with attending IOP despite not wanting to come today. Client to continue IOP to maintain gains, increase utilization of healthy coping and thought challenge, and prevent decompensation. Narrative Note: []
--- NOTE | 2019-01-22 11:10 | BH.SGPN.GN ---
Behaviors/Verbalizations/Mental Status: [Client maintained fair to good eye contact, casually dressed and appropriate grooming, motor activity appropriate, speech normal rate and tone - quieter than usual, mood euthymic, affect congruent, thoughts linear, logical, no evidence of delusions or hallucinations.] Client Response/Progress/Benefit: [Pt attentive engaged in both discussion and growth mindset reflection activity, providing some input and taking notes throughout. Pt participated in reflection on how fixed mindset thoughts the group experienced in the activity impacted ability to complete the task at hand. Client worked with group to identify important components of a growth mindset as she stated fixed thoughts have caused her to people please and put her own needs last. Client used cognitive restructuring to reframe previously identified fixed thoughts. Client replaced fixed thought of ?I can?t please people? with growth mindset thought of ?I can?t please all people, but I know I can please some?. Client benefitted from discussing benefits of growth mindset and strategies for reframing fixed thoughts. Progress noted in client willingness and ability to successfully replace fixed thoughts despite indicating that this was not easy to do. Continued IOP tx to prevent decompensation, increase self-confidence and healthy boundaries, and continue to promote healthy change behaviors.] Narrative Note: []
--- NOTE | 2019-01-22 14:37 | BH.MDN ---
Multi-Disciplinary Note - Note 45-min Individual Time Started:: 09:11 Date: 01/22/19 Purpose of session/treatment goals addressed:: Purpose of session was to asses pt's current symptoms and stressors. Other topics: create maintainence plan for pt while she is on extended vacation. Eye Contact:: Fair Motor Activity:: Appropriate Appearance:: Casual Speech:: Appropriate Mood:: Anxious Affect:: Congruent Thoughts:: Linear, Logical, No evidence of hallucinations/delusions noted Staff Interventions:: Therapist used open ended questions to elicit pt's current symptoms and stressors. Assisted pt with challenge distorted thoughts. Therapist collaborated with pt to to develop maintainence plan while pt is on extended vacation. Client Response:: Pt reported she was struggling with returning to IOP after she broke her neck by falling. Pt stated she was thinking people would press assistant her. Pt shared her anxiety about what people might think about her almost resulted in pt not coming to IOP today. Pt responded well to therapist assisting pt with reframing distorted thought. Pt recognized she was mind reading and the thought is irrational. Pt stated she will be leaving for vacation and won't be returning until February 12. Pt shared she is excited to go on vacation, but also anxious her depressive symptoms return then she ruins trip for her . Pt willing to create maintainence plan for while pt is gone to help her maintain progress. Pt identified on the trip she will need to intentionally find time for self-care, communicate openly with , engage in healthy coping skills daily, challenge negative and distorted thoughts, have realistic expecations of self and be social with friends along the different stops. Risks/Concerns:: Denies current suicidal ideation, plan or intention to date. future focused. Progress Toward Goals/Plan:: Pt progress noted with pt reporting overall improved mood, use of healthy coping skills and awareness of negative thoughts. Pt reporting slight increase in anxiety to return to IOP since breaking her neck, but was able to defeat anxious thougths by showing up to IOP today. Pt will be leaving for an extended vacation and return to IOP following vacation to ensure treatment gains have maintained. Time Stopped:: 10:00
== END 2019-01-30 23:59 ==
LOC: BHIOP 09:00
PROVIDERS: Family Provider Physician Assistant; PCP Physician Assistant; Referring Provider Psychiatry & Neurology Psychiatry; Visit Provider Psychiatry & Neurology Psychiatry
DX: F31.30 Bipolar disorder, current episode depressed, mild or moderate severity, unspecified (principal); F41.9 Anxiety disorder, unspecified
CPT/HCPCS: H0035; 90834; 90853

== ENCOUNTER 2019-02-16 09:00 | Outpatient (RCR) | payer MEDICARE, OTHER, SELFPAY ==
--- NOTE | 2019-01-10 11:17 | BH.SGPN.GN ---
Behaviors/Verbalizations/Mental Status: [Client alert and oriented, casually dressed, appearance appropriate. Eye contact good. Motor activity appropriate. Speech within normal limits. Affect congruent, mood euthymic and anxious. Thoughts linear, logical, no signs of hallucinations or delusions. ] Client Response/Progress/Benefit: [Client was attentive and willing to engage throughout group discussion and activity. Pt taking notes and did well to work with the group to identify obstacles currently preventing from achieving her identified desired reality. Barriers included: difficulties managing stress, poor boundaries, fear of failure, and negative self-talk. Client was able to identify personal resilience factors that can help overcome barriers. Client?s personal resilience factors included; willingness to ask for help and learn new skills, healthy supports, focusing on taking things on step at a time, using deep breathing skills, and humor when experiencing increased anxiety or agitation. Actively participated during activity and worked with group to provide ideas on how to cope with internal barriers. Group identified various obstacles during the activity and developed strategies to overcome those obstacles to wellness and desired reality. Client selected wanting to work on the barrier of negative self-talk patterns by continuing to identify positives about herself when catching negative-talk statements. Benefited from group by identifying obstacles and solutions to desired reality. Will continue IOP tx to improve mood stability, increase use of healthy communication skills, and prevent decompensation.] Narrative Note: []
[2019-01-17 08:44] VITALS: BMI 38.6
--- NOTE | 2019-01-19 09:06 | BH.SGPN.GN ---
Behaviors/Verbalizations/Mental Status: [Eye contact is good. Motor activity is appropriate. Appearance is casual. Pt presents with neck collar due to fall earlier this week. Speech is Appropriate. Mood is anxious, euthymic. Affect is congruent. Thoughts are linear and logical. No evidence of psychosis. Reviewed daily check in sheet and no reports of suicidal ideations or intent.] Client Response/Progress/Benefit: [Pt was an active participant in group discussion and openly process thoughts and feelings. Emotion for today is anxious but ?better than yesterday?. Shared that she is beginning to be able to see the humor in her recent fall and is beginning to adjust to the neck brace she must wear as a result. Discussed that although it is uncomfortable, she has been able to work with her on problem-solving strategies to reduce the itchiness of the brace. Discussed that her has been very supportive which has made things somewhat easier. Reports trying to focus on the positives and practice gratitude which has been crucial in maintaining progress as well. Appeared to benefit from reflecting upon areas of personal resilience and progress despite recent setback. Will continue in IOP to prevent decompensation, continue to improve consistency of skill application, and stabilize emotions.] Narrative Note: []
--- NOTE | 2019-02-16 09:12 | BH.SGPN.GN ---
Behaviors/Verbalizations/Mental Status: [Eye contact is good. Motor activity is appropriate. Appearance is casual. Speech is Appropriate. Mood is anxious. Affect is congruent. Thoughts are linear and logical. No evidence of psychosis. Reviewed daily check in sheet and no reports of suicidal ideations or intent.] Client Response/Progress/Benefit: [Pt was an active participant in group discussion, providing input and supportive feedback throughout. Emotion for today is a mixed bag of emotions. Identified mental health wins as practicing self-care via completing a craft in which she painted some totes. Additional win identified as having a positive vacation with her and being able to see some friends she has not seen in a while. States current stressor as having ?two meltdowns in two days? noted this is due to ongoing difficulties in consistently managing her emotions. Reports insight regarding potential strategies that may aid in improving emotion regulation and prevent escalating to point of crisis. Identified ?I can slow down and take deep breaths? as well as reminding herself ?I can get out of this?. Ability to identify healthy means for maintaining emotional stability as well as reaching out to supports while on vacation indicates progress. Benefited from group support and encouragement. Will continue in IOP to prevent decompensation, improve daily functioning, and increase emotion regulation.] Narrative Note: []
--- NOTE | 2019-02-16 10:25 | BH.SGPN.GN ---
Behaviors/Verbalizations/Mental Status: [Client alert and oriented, casually dressed and groomed. Eye contact good. Motor activity appropriate. Speech within normal limits. Affect congruent, mood euthymic, anxious. Thoughts linear, logical, no signs of hallucinations or delusions. ] Client Response/Progress/Benefit: [Client engaged participant as shown by client?s contribution to discussion and helpful insight. Client participated in the discussion of the common myths about self-care including self-care is selfish, easy, makes us weak, and always fun. Client worked with group to debunk the myths about self-care. Client stated she believes self-care is essential in order to fully function and be happy. Client seemed to benefit from increased awareness of the importance of self-care. Client showing progress as shown by continued improvements in consistent use of healthy skills and setting boundaries with others. Will continue tx to identify and challenge distorted thoughts, increase healthy coping skills, and prevent decompensation.] Narrative Note: []
--- NOTE | 2019-02-16 14:56 | BH.MDN ---
Multi-Disciplinary Note - Note 45-min Individual Time Started:: 08:30 Date: 02/16/19 Purpose of session/treatment goals addressed:: The purpose of this session was to review client's progress, provide closure to treatment, and review strategies that will promote mood stability and gains made in [facility]. Another goal was to discuss aftercare and discharge recommendations. Eye Contact:: Good Motor Activity:: Appropriate Appearance:: Neat Speech:: Appropriate Mood:: Anxious, Depressed Affect:: Congruent - tearful Thoughts:: Circular, No evidence of hallucinations/delusions noted Staff Interventions:: Therapist used open-ended questions to explore client's thoughts on personal progress. Therapist reviewed supports, warning signs, and coping skills with client to promote gains and prevent setbacks. Therapist discussed aftercare plan with client and used strengths-perspective to empower client on the goals client accomplished. Therapist used cognitive restructuring to help client combat negative thinking. Client Response:: Client responded well to session, open to meeting with therapist. Client entered session tearful and anxious. Client stated she was worried she had a setback because she had two bad days in a row where client became tearful and had a meltdown. Client using numerous distortions and self-depreciating talk. After gentle challenging from therapist, client able to recognize and combat negative thoughts. With further exploration, client recognized that her meltdown was due to the stress from returning from vacation and feeling overwhelmed by things she has missed. Client acknowledged that everyone has setbacks and that she still has made significant progress. Client identified her progress as overall reduced depression and intensity of symptoms, increased awareness of distortions, improved communication, and better coping skills. Client reports she plans to see Shelia Siddiqui at [facility] for ongoing outpatient counseling. Client able to identify coping strategies that will help her promote gains and manage symptoms ongoing such as communication with her , breathing, and positive self-talk. Risks/Concerns:: Client denies any suicidal ideations, plan, and intent as of 02/16/19. Progress Toward Goals/Plan:: Client to discharge from [facility] today as she has made progress towards her treatment goals and reports increased mood stability. Client self-reports progress with increased communication, emotional regulation, and awareness of distortions. Client to follow up with Shelia Siddiqui for ongoing outpatient counseling services. Time Stopped:: 09:10
--- NOTE | 2019-03-01 16:12 | BH.DS ---
Discharge Summary - Demographics Date of Admission:: 12/04/18 Discharge Date: 12/17/18 Presenting Problems at Admission:: Pt is a 73 year old female with hx of Bipolar. Hx of 3 previous psychiatric admissions with most recent in February 2000. Self-referred to IOP due to decompensation in MH symptoms for the past 5 months. Reports erratic mood swings, daily panic attacks, crying spells, and difficulty with daily functioning. Notes bouts of energy followed by depressive episodes. Unable to manage emotions. Endorses decreased concentration, decreased focus, crying spells, erratic sleep, low energy, no moitivation, hopelessness, and worthlessness. Impulsivity. Easily overwhelmed. Starting numerous projects and doesn't follow through. Not linked with counseling or psychiatry. Denies active suicidal ideations, plan, or intent. Worsening MH symptoms impacting social, familial, vocational and social functioning, erratic mood swings, and daily panic attacks. Was recommended IOP. Discharge Diagnoses:: Bipolar disorder, depressed type. Anxiety disorder unspecified Reason for Discharge:: Pt met all treatment plan goals. No longer meets criteria for IOP level of care. - Treatment Progress During Treatment & Response: Pt made significant progress during IOP treatment. Upon entering IOP pt scored a 72 on the DSM 5 cross-cutting scales. At discharge she scored a 26 which is a 46 point reduction in symptoms. Pt reports increased awareness of emotions and reactions, decrease in impulsive feelings, increased emotional regulation, and consistent use of coping skills. Overall improved mental health per pt report. Responded well to IOP program. Issues Still to be Addressed:: Pt could benefit from continued focus of identifying and challenging anxious and negative thought patterns. Could also benefit from reinforcement of healthy coping skills, communication with supports, and engaging in activities outside the home. Discharge Recommendations/Instructions:: Following with with therapist Shelia at [facility] on 03/26/2019. Will have medication management through Dr. Tristin New at [facility]. Discharge Handout: Complete Discharge Handout with client on aftercare options and continuity of care.
--- NOTE | 2019-03-01 16:32 | BH.DS_ITS ---
Discharge Summary - Demographics Date of Admission:: 12/04/18 Discharge Date: 12/17/18 Presenting Problems at Admission:: Pt is a 73 year old female with hx of Bipolar. Hx of 3 previous psychiatric admissions with most recent in February 2000. Self-referred to IOP due to decompensation in MH symptoms for the past 5 months. Reports erratic mood swings, daily panic attacks, crying spells, and difficulty with daily functioning. Notes bouts of energy followed by depressive episodes. Unable to manage emotions. Endorses decreased concentration, decreased focus, crying spells, erratic sleep, low energy, no moitivation, hopelessness, and worthlessness. Impulsivity. Easily overwhelmed. Starting numerous projects and doesn't follow through. Not linked with counseling or psychiatry. Denies active suicidal ideations, plan, or intent. Worsening MH symptoms impacting social, fa milial, vocational and social functioning, erratic mood swings, and daily panic attacks. Was recommended IOP. Discharge Diagnoses:: Bipolar disorder, depressed type. Anxiety disorder unspecified Reason for Discharge:: Pt met all treatment plan goals. No longer meets criteria for IOP level of care. - Treatment Progress During Treatment & Response: Pt made significant progress during IOP treatment. Upon entering IOP pt scored a 72 on the DSM 5 cross-cutting scales. At discharge she scored a 26 which is a 46 point reduction in symptoms. Pt reports increased awareness of emotions and reactions, decrease in impulsive feelings, increased emotional regulation, and consistent use of coping skills. Overall improved mental health per pt report. Responded well to IOP program. Issues Still to be Addressed:: Pt could benefit from continued focus of identifying and challenging anxious and negative thought patterns. Could also benefit from reinforcement of healthy coping skills, communication with supports, and engaging in activities outside the home. Discharge Recommendations/Instructions:: Following with with therapist Shelia at [facility] on 03/26/2019. Will have medication management through Dr. Tristin New at [facility]. Discharge Handout: Complete Discharge Handout with client on aftercare options and continuity of care.
== END 2019-02-16 14:00 | disposition home or self-care (01) ==
LOC: BHIOP 09:00
PROVIDERS: Family Provider Physician Assistant; PCP Physician Assistant; Referring Provider Psychiatry & Neurology Psychiatry; Visit Provider Psychiatry & Neurology Psychiatry
DX: F31.9 Bipolar disorder, unspecified (principal); F41.9 Anxiety disorder, unspecified; Z79.899 Other long term (current) drug therapy
CPT/HCPCS: H0035; 90834; 90853

== ENCOUNTER 2019-07-16 11:18 | Day surgery (SDC) | payer MEDICARE, OTHER, SELFPAY ==
[2019-01-17 08:44] VITALS: BMI 38.6
--- NOTE | 2019-07-15 11:46 | PCM.HP.BLA ---
History and Physical Date of Admission: 07/16/19 HISTORY AND PHYSICAL ? Dionne Castellanos 1945 ? REFERRING PHYSICIAN: ??Joan New* ? CHIEF COMPLAINT: ??Clinical Update ? HPI: The patient is a 74 year old female?who presents to update H&P for?upcoming?scheduled colonoscopy?07/16/19 at [facility]. ?Per my recent H&P from 04/12/19: ? The patient is a 74 year old female referred for endoscopy. ?Dionne notes a history of colon polyps and states she is due for 5 year follow-up colonoscopy, last endoscopy performed in 2013 in [place]. Patient?notes she has been having issues with both upper and lower abdominal discomfort. ?Will get occasional twinges of discomfort in lower abdomen and has noted some weight gain. ?Notes fluctuating bowel habits and fecal urgency, worse at night. ?She has a past history of colon resection for diverticulitis. ?She also has a known hiatal hernia and states has been experiencing stomach discomfort. ?States at one point had a Torrey fundoplication but the wrap came loose. ?She notes she has had multiple hernias repaired with a large piece of mesh in her abdomen. ?She has had prior cholecystectomy and appendectomy. ? Patient has had a past VT, states was found on EKG but never had symptoms. ?Her medical history is also significant for bipolar disorder, glaucoma, osteopenia, DCIS, asthma, hypertension, hyperlipidemia, neuropathy, myasthenia gravis. ?She follows with Tristin New PA-C for her chronic medical conditions. ? The patient denies any significant change to her?overall health since her?last visit. ?Her?past medical history, past surgical history, medications and allergies are up to date as of this visit. ? ? PAST?MEDICAL?HISTORY PAST MEDICAL HISTORY Diagnosis Date ? Abnormal EKG 01/03/2014 ? inferior VT aage undetermined (q-waves inferior) ? Anxiety ? ? Arthritis ? ? knee and hip ? Asthma ? ? C6 cervical fracture (HCC) 2018 ? DCIS (ductal carcinoma in situ) 2005 ? multifocal DCIS, bilateral mastectomy ? DDD (degenerative disc disease), cervical ? ? Depression ? ? Detached retina ? ? Seeing Dr. Vásquez ? Diverticulitis 2000 ? partial colectomy descending colon ? Diverticulosis ? ? Fall at home ? ? Gait instability 10/28/2016 ? Gastroparesis 01/02/2014 ? Diagnosis Dr. Dylan Paige ? GERD (gastroesophageal reflux disease) ? ? Glaucoma ? ? Hiatal hernia ? ? History of femur fracture 2013 ? alex placed, after fall ? HTN (hypertension) ? ? Hyperlipidemia ? ? Neck fracture (HCC) ? ? Neuropathy (HCC) ? ? Osteopenia ? ? Prediabetes ? ? Pseudopolyp of transverse colon with abscess (HCC) 02/09/2017 ? 04/2007 colonoscopy: polyps 01/02/2014 Colonoscopy: polyps Alfredito MONTES [place] Rec 2019 surveillance ? Syncope 12/20/2013 ? 01/03/14 24 hour holtor WNL, carotid US bilaterally stenosis< 50%. echocardiogram: mild concentric LVH, EF 60-65%, grae 1 diatolic dysfunction, LA mildly dilated, RA NL, trivial mitral thickening, !+ MR, mildTR with pulm pressure 37mmHG, no AVR, mild PVR. Cardia PET regadson study: no ischemia. EF >70%, LV small and normal systolic function ? Urinary incontinence ? ? ? PAST?SURGICAL?HISTORY PAST SURGICAL HISTORY Procedure Laterality Date ? APPENDECTOMY ? ? ? COLONOSCOPY ? ? ? CT ABD & PELV W/CONTRAST ? 10/16/2015 ? abdominal pain. WNL. small paraesophageal hernia, diverticulosis ? GALLBLADDER /EJECTION FRACTION ? ? ? HERNIA REPAIR HX ? ? ? x4 ventral hernia ? HYSTEROSCOPY ? 01/2014 ? h/s D&C for PMB- benign ? HYSTEROSCOPY, SURGICAL; WITH SAMPLI ? 06/08/2018 ? Hysteroscopy D&C w/ resection of endometrial polyp ? LX PARTIAL COLECTOMY ? 1997 ? for diverticulitis ? MASTECTOMY HX Bilateral 2005 ? PAST SURGICAL HISTORY OF ? ? ? Trorey fundoplication ? PAST SURGICAL HISTORY OF ? 2013 ? cervical spinal fusion ? PROCEDURE ? ? ? right femur repair, alex placed ? REPAIR RETINAL DETACH, C Right ? ? SLING OPER STRES INCONTINENCE ? 1995 ? stress incontinence ? TOTAL KNEE REPLACEMENT Left ? ? ? CURRENT?MEDICATIONS ? Current Outpatient Medications: metFORMIN (GLUCOPHAGE) 500 mg tablet Take 1 tablet by mouth once daily. metoprolol succinate ER (TOPROL XL) 50 mg 24 hr tablet Take 1 tablet by mouth once daily. albuterol HFA (PROVENTIL HFA, VENTOLIN HFA) 90 mcg/actuation inhaler Inhale 2 Puffs as instructed every 4 hours as needed. DULoxetine (CYMBALTA) 30 mg capsule Take 1 capsule by mouth once daily. buPROPion SR (WELLBUTRIN SR) 150 mg 12 hr tablet Take 1 tablet by mouth twice daily. pravastatin (PRAVACHOL) 80 mg tablet Take 1 tablet by mouth once daily. gabapentin (NEURONTIN) 600 mg tablet TAKE 1 TABLETS BY MOUTH IN THE MORNING AND 1 TABLET IN THE AFTERNOON NEXIUM 40 mg capsule Take 1 capsule by mouth once daily. (Patient taking differently: Take 40 mg by mouth every other day. ) acyclovir (ZOVIRAX) 400 mg tablet take 1 tablet by mouth twice a day (Patient not taking: Reported on 07/03/2019) COMPOUNDED PRESCRIPTION L8030 BREAST PROSTHESISQTY: 2 - BILATERALDX: MULTIFOCAL DCIS COMPOUNDED PRESCRIPTION L8020 LEISURE BREAST FORMQTY: 2 BILATERALDX: MULTIFOCAL DCIS COMPOUNDED PRESCRIPTION L8000 SURGICAL/MASTECTOMY BRAQTY: 12 EACHDX: MULTIFOCAL DCIS COMPOUNDED PRESCRIPTION GabaKeto LP: Gabapentin 2.5 %, Ketoprofen 2.5%, ?Lidocaine 2.25%, Prilocaine 2.25%SIG: Apply 0.5-1 g to area of pain TID PRN, massaging in well. ?Repeat after 10 min. COMPOUNDED PRESCRIPTION GabaKeto LP: Gabapentin 2.5%, Ketoprofen 2.5%, Lidocaine 2.25%, Prilocaine 2.25%SIG: Apply 0.5-1 g to area of pain TID PRN, massaging in well. ?Repeat after 10 min. blood sugar diagnostic (BLOOD GLUCOSE TEST) test strip Test blood sugar(s) 2 times daily. ?Dx: prediabetes ?Insulin: No Lancets (ONETOUCH ULTRASOFT LANCETS) lancets Test blood sugar(s) 1-2 times daily. Dx: prediabetes , Insulin: No COMPOUNDED PRESCRIPTION FreeStyle glucose monitor #1 cycloSPORINE (RESTASIS) 0.05 % ophthalmic emulsion 1 Drop twice daily. twnwgvl-ucdrvkoje-jfaejvl D3 500 mg(1,250mg) -200 unit per tablet Take 1 tablet by mouth. cholecalciferol (VITAMIN D3) 2,000 unit tablet Take 2,000 Units by mouth once daily. VIT A/VIT C/VIT E/ZINC/COPPER (PRESERVISION AREDS ORAL) Take ?by mouth. ? Current Facility-Administered Medications: fluorescein-benoxinate 0.25-0.4 % 1 Drop (FLURESS) 1 Drop BOTH EYES As Directed ? ALLERGIES:?Metoclopramide Hcl; Nifedipine; Nitrofurantoin Macrocrystalline; Ativan [Lorazepam]; Hydromorphone; Ultram [Tramadol Hcl] ? PERSONAL HISTORY:? SOCIAL?HISTORY Social History ??Socioeconomic History ?Marital status: ?Spouse name: Corey ?Number of children: 1 ?Years of education: Not on file ?Highest education level: Not on file ??Occupational History ?Not on file ??Social Needs ?Financial resource strain: Not on file ?Food insecurity: ?Worry: Not on file ?Inability: Not on file ?Transportation needs: ?Medical: Not on file ?Non-medical: Not on file ??Tobacco Use ?Smoking status: Never Smoker ?Smokeless tobacco: Never Used ??Substance and Sexual Activity ?Alcohol use: No ?Drug use: No ?Sexual activity: Not on file ??Lifestyle ?Physical activity: ?Days per week: Not on file ?Minutes per session: Not on file ?Stress: Not on file ??Relationships ?Social connections: ?Talks on phone: Not on file ?Gets together: Not on file ?Attends orthodox service: Not on file ?Active member of club or organization: Not on file ?Attends meetings of clubs or organizations: Not on file ?Relationship status: Not on file ?Intimate partner violence: ?Fear of current or ex partner: Not on file ?Emotionally abused: Not on file ?Physically abused: Not on file ?Forced sexual activity: Not on file ??Other Topics ?Concerns: ?Not on file ??Social History Narrative ?Not on file ? FAMILY HISTORY:? FAMILY?HISTORY FAMILY HISTORY Problem Relation Age of Onset ? Blindness Mother ? ? Cataract Mother ? ? Glaucoma Mother ? ? Diabetes Mother ? ? Heart Mother ? ? Diabetes Father ? ? Cancer Paternal Grandmother ?gastric ? REVIEW OF SYSTEMS: ?General:???The patient notes fatigue, denies weight loss, notes weight gain, notes feeling hot, and denies feelings of cold. ?Eyes: ?The patient denies glaucoma, notes eye injury/surgery, wears glasses or contacts. ?Ear/Nose/Throat: ?The patient denies allergies, denies hayfever, denies ear infections, and denies bloody noses. ?Cardiovascular: ?The patient denies chest pain, denies heart disease, notes high blood pressure,denies cardiac stent, denies prior heart attack, denies irregular heart beat, notes high cholesterol, ?notes poor circulation, denies heart failure, other cardiac issues, denies claudication, denies cold feet, denies peripheral arterial stent. ?Respiratory: ?The patient denies tuberculosis, denies pneumonia, denies frequent cough, denies pulmonary embolism, denies shortness of breath, and denies coughing up blood. ?Gastrointestinal: ?The patient denies difficulty swallowing, denies acid reflux, denies ulcers, denies vomiting, denies jaundice/hepatitis, denies gallbladder problems, denies black or tarry stools, notes hemorrhoids, denies bleeding from rectum, denies diverticulitis, notes constipation, notes diarrhea, denies loss of stool control, and denies hernias. ?Kidney/Bladder: ?The patient denies kidney stones, denies urine infections, and denies bloody urine. ?Skin: ?The patient denies a history of skin cancer, denies bleeding/changing moles, and denies a history of skin rash. ?Neurologic: ?The patient denies a history of epilepsy/convulsions, denies headaches, denies head/spinal injuries, and denies stroke/TIA. ?Psychiatric: ?The patient notes psychiatric medications, notes depression, and denies voices, denies substance abuse. ?Endocrine: ?The patient denies thyroid disorders, notes diabetes, and denies hormonal problems. ?Hematologic: ?The patient denies a history of bruising, denies bleeding, and denies anemia, denies blood clots. ?Infections: ?The patient denies a history of measles and mumps, denies rheumatic fever, and denies sexually transmitted diseases. ?Musculoskeletal: ?The patient notes back pain/injury, notes back problems, denies sciatica, notes knee/foot trouble, denies arthritis, or denies gout. ? ? When was patient's last Mammogram screening? unknown ? ?Last Colonoscopy: ?2013 ? ? PHYSICAL EXAMINATION: ? General: ?The patient is 74 year old female, well nourished, well hydrated in no acute distress. ?The patient is oriented to time, place, and person. ? VITALS:?Blood pressure 132/60, pulse 83, temperature 36.3 ?C (97.3 ?F), temperature source Temporal Artery, resp. rate 16, weight 85.7 kg (189 lb), SpO2 97 %.?Body mass index is 39.5 kg/m?.? ? HEENT: ?Normal cephalic, ataumatic, pupils are equally round, sclera are anicteric, mucous membranes are moist, oropharynx is clear. ?Neck has no masses, asymmetry or lymphadenopathy. ? ? Respiratory: ?Clear to auscultation and percussion. ?Normal respiratory excursion and pattern. ? Cardiac: ?Examination is regular rate and rhythm. ?Normal S1/S2 ? Abdominal exam: ?Soft, nontender, ?with no palpable masses. ?No hepatosplenomegaly. ?No palpable hernias. ? Extremities: ?no clubbing, cyanosis or edema. ?No adenopathy. ? LABORATORY VALUES: As Noted ? RADIOLOGIC STUDIES: ?As Noted ? ? Assessment ? IMPRESSION:?personal history of colon polyps, change in bowel habits, upper and lower abdominal pain, hiatal hernia ? PLAN: ?I have reviewed my findings with the surgeon. ?Will plan for upper and lower?endoscopy. ??We discussed the risks and benefits of the planned endoscopy. ?I have informed the patient that complications can occur including failure to complete the endoscopy and perforation. ?The patient had the opportunity to ask questions concerning the planned endoscopy. ?My staff has also explained the procedure to the patient in understandable terms and has given the patient printed material concerning the procedure. ?The patient freely consents to surgery. ? I plan to use?Golytely?bowel preparation ? Patient instructed to contact PCP for instructions regarding diabetic medication, which may require adjustment during bowel preparation and/or day of procedure ? ? We will plan for Monitored Anesthetic Care.? ? Patient verbalized understanding of all above and agreed with the plan. ? ? ? Diagnoses:?(Z12.11) Encounter for screening for malignant neoplasm of colon ?(primary encounter diagnosis) (R10.31, ?R10.32) Bilateral lower abdominal discomfort (Z90.49) History of colon resection (R10.11, ?R10.12) Bilateral upper abdominal pain (Z86.010) History of colonic polyps (K44.9) Hiatal hernia ? ? Noni Woody PA-C
[2019-07-16] VITALS (8 sets, daily range): BP systolic 105–153; BP diastolic 56–91; PULSE 68–109; RESP 16–18; TEMP 36–37.2; O2SAT 93–100; BMI 38.0
[2019-07-16] MEDS: Lactated Ringers 1,000 ML 100 ML IV (12:29)
[2019-07-16 12:35] LABS: Bedside Glucose 106 mg/dL (70-110)
--- NOTE | 2019-07-16 12:55 | IMM_PTH ---
PATIENT: MEGHA DRAKE LOC: EN U#:[id number] AGE/SX: 74/F ROOM: RE07/16/[address]: Dr. Eber Rosales MD : 1945 BED: DIS: 07/16/2019 SPEC #: [id number] RECD: 07/17/19 12:31 STATUS: LYNDSEY REQ #: [id number] DREW: 07/16/19 12:[address]: Eber Rosales DEPT: IMMUNOHISTOCHEMISTRY RECD BY: Latasha Silva ENTERED: 07/17/19 12:32 SP TYPE: IMMUNO OTHR DR: CHRISSY Manzanares Tissues: Stomach, NOS Procedures: H Pylori (initial) PHYSICIAN & INSTITUTION [place] [id number] SPECIMEN INFORMATION: Tissue Source: Antral biopsy Clinical Info: Abdominal pain, history of colon polyps Specimen Number: [id number] CPT code: 27002 METHODOLOGY: Deparaffinized sections of prefer/formalin-fixed tissue or PAP/DQ stained slides are incubated with monoclonal/polyclonal antibodies/oligonucleotide probes. Localization is made via biotin free immunoperoxidase method. Appropriate controls are performed and reacted as expected. Results on target cell population are indicated in the following table: RESULTS: ANTIBODY / CLONE RESULT H Pylori (polyclonal) negative These tests were developed and their performance characteristics determined by [facility]. They may not have been cleared or approved by the U.S. Food and Drug Administration. The FDA has determined that such clearance or approval is not necessary. INTERPRETATION: Antral biopsy: Negative for Helicobacter pylori organisms. RUPERTO:kaity 07/18/19
--- NOTE | 2019-07-16 12:55 | EGD_PTH ---
PATIENT: MEGHA DRAKE LOC: EN U#:[id number] AGE/SX: 74/F ROOM: RE07/16/[address]: Dr. Eber Rosales MD : 1945 BED: DIS: 07/16/2019 SPEC #: [id number] RECD: 07/16/19 14:44 STATUS: LYNDSEY RESrinath #: [id number] DREW: 07/16/19 12:[address]: Eber Rosales DEPT: SURGICAL PATHOLOGY RECD BY: José Miguel Shelton ENTERED: 07/17/19 09:59 SP TYPE: EGD BIOPSY OT DR: CHRISSY Manzanares Tissues: Gastric mucous membrane Procedures: Surgery Specimen Level IV HEADER OPERATION: Colonoscopy, EGD ([facility]) PRE-OP DIAGNOSIS: Abdominal pain; history colon polyps TISSUE SUBMITTED: Antral biopsy and H. pylori MICROSCOPIC DIAGNOSIS Antral biopsy: Mild gastritis. See microscopic description and comment. SJ:kaity 07/18/19 COMMENT The results of immunohistochemistry for Helicobacter pylori will be reported separately ([id number]). MICROSCOPIC DESCRIPTION Slides are reviewed. The specimen shows fragments of gastric mucosa with chronic inflammatory cell infiltrates in the lamina propria consisting of lymphocytes and plasma cells, consistent with mild chronic gastritis. GROSS DESCRIPTION Received in fixative is one container labeled with the patient's name and designated antral biopsy. The specimen consists of one irregular fragment of light zamudio soft tissue that measures 0.3 x 0.3 x 0.1 cm. The specimen is totally submitted in one cassette. / SJ:rg 07/17/19 TC:3 CPT: 41752
--- NOTE | 2019-07-16 13:37 | OP.ENDO_ITS ---
07/16/2019 Joan New Re : Upper GI endoscopy procedure for Dionne Castellanos Dear Shaq This procedure was performed on Tuesday, July 16, 2019. My impressions and recommendations are as follows: Impressions : - Normal examined jejunum. - Normal examined duodenum. - Gastritis. Biopsied. - Medium-sized hiatal hernia. - Normal esophagus. Recommendations : - Discharge patient to home. - Resume previous diet. - Continue present medications. - Return to physician assistant grocery store manager in 1 week. My findings are described in the full procedure note, which is enclosed. If I can be of further assistance, please feel free to contact me at Doctor phone number(s): , Work: . Sincerely, Eber Rosales MD 07/16/2019 1:37:32 PM This report has been signed electronically.
--- NOTE | 2019-07-16 13:40 | OP.ENDO_ITS ---
07/16/2019 Joan New Re : Colonoscopy procedure for Dionne Castellanos Dear Shaq This procedure was performed on Tuesday, July 16, 2019. My impressions and recommendations are as follows: Impressions : - Patent functional end-to-end colo-rectal anastomosis, characterized by healthy appearing mucosa. - Diverticulosis in the entire examined colon. - The distal rectum and anal verge are normal on retroflexion view. - No specimens collected. Recommendations : - Discharge patient to home. - Resume previous diet. - Continue present medications. - Return to physician learning and development assistant in 1 week. - Repeat colonoscopy in 5 years for surveillance. My findings are described in the full procedure note, which is enclosed. If I can be of further assistance, please feel free to contact me at Doctor phone number(s): , Work: . Sincerely, Eber Rosales MD 07/16/2019 1:40:07 PM This report has been signed electronically.
--- NOTE | 2019-07-16 15:21 | EKG12_ITS ---
Test Reason : CP POST ENDOSCOPY Blood Pressure : / mmHG Vent. Rate : 078 BPM Atrial Rate : 078 BPM P-R Int : 178 ms QRS Dur : 082 ms QT Int : 394 ms P-R-T Axes : 047 051 034 degrees QTc Int : 449 ms Normal sinus rhythm Normal ECG No previous ECGs available Confirmed by THALIA KESSLER ([id number]), market editor MAJOR CALDERON ([id number]) on 07/20/2019 10:27:41 AM Referred By: Joan New Confirmed By:THALIA KESSLER
== END 2019-07-16 17:19 | disposition home or self-care (01) ==
LOC: EN 11:19 → AC 11:26
PROVIDERS: Anesthesiology; Family Provider Physician Assistant; PCP Physician Assistant; Referring Provider Physician Assistant; Visit Provider Surgery
PROC: 0DJD8ZZ Inspection of Lower Intestinal Tract, Via Natural or Artificial Opening Endoscopic (ICD-10-PCS; CPT 45378; principal; 2019-07-16 12:50)
DX: Z12.11 Encounter for screening for malignant neoplasm of colon (principal); K44.9 Diaphragmatic hernia without obstruction or gangrene; K57.30 Diverticulosis of large intestine without perforation or abscess without bleeding; K29.70 Gastritis, unspecified, without bleeding; M85.80 Other specified disorders of bone density and structure, unspecified site; G70.00 Myasthenia gravis without (acute) exacerbation; E11.43 Type 2 diabetes mellitus with diabetic autonomic (poly)neuropathy; I10 Essential (primary) hypertension; J45.909 Unspecified asthma, uncomplicated; E78.5 Hyperlipidemia, unspecified; K21.9 Gastro-esophageal reflux disease without esophagitis; F31.9 Bipolar disorder, unspecified; F41.9 Anxiety disorder, unspecified; Z79.84 Long term (current) use of oral hypoglycemic drugs; Z79.899 Other long term (current) drug therapy; Z78.0 Asymptomatic menopausal state; Z90.49 Acquired absence of other specified parts of digestive tract
CPT/HCPCS: 43239; G0105; 36415; 82962; 84484; 88305; 88342; 93005; J7120; J2405

== ENCOUNTER 2020-02-28 08:09 | Emergency (ER) | payer MEDICARE, OTHER, SELFPAY ==
[2019-07-16 11:59] VITALS: BMI 38.0
[2020-02-28 08:12] VITALS: BP 185/100; PULSE 98; RESP 17; TEMP 36.2; O2SAT 95; BMI 38.7
--- NOTE | 2020-02-28 08:21 | CT_ITS ---
STUDY: CT ABDOMEN AND PELVIS WITHOUT CONTRAST REASON FOR EXAM: Female, 75 years old. RLQ/RIGHT FLANK PAIN X2 DAYS -- SURG-APPY,GB,PARTIAL COLECTOMY D/T COLITIS RADIATION DOSAGE (If Supplied By Facility): CTDIvol = ( 17.36 ) mGy, DLP = ( 724.01 ) mGycm TECHNIQUE: Transaxial images were obtained from the dome of the diaphragm to the symphysis pubis without oral contrast, and without intravenous contrast. Sagittal and coronal images were reconstructed. Individualized dose optimization techniques were used for this CT. COMPARISON: None. FINDINGS: Mild degree of the reticular nodular pattern at the lung bases suggestive of mild scarring. Coronary artery calcification. Normal liver. There are surgical clips in the gallbladder fossa consistent with a prior cholecystectomy. Normal spleen. Normal pancreas. There is a small, circumscribed, smooth, low attenuation left adrenal mass, consistent with an adrenal adenoma. This measures 8.3 mm. Normal right adrenal gland. There is a 3.6 mm calculus in the upper pole of the right kidney. A 2 mm calculus is seen in the upper pole calyx of the left kidney. Moderate sized hiatal hernia. Normal small intestine. There are scattered colonic diverticula consistent with diverticulosis. Surgical anastomosis seen in the sigmoid colon. The patient is status post appendectomy. Normal abdominal aorta. Normal inferior vena cava. Normal retroperitoneum. Normal urinary bladder. IUD is seen within the uterus. Evidence of prior anterior abdominal wall hernia repair with a mesh. There are mild degenerative changes of the visualized lumbar spine. CT/Abdomen/Pelvis without Cont IMPRESSION: IUD is seen within the uterus. Nonobstructive bilateral intrarenal calculi. Findings suggestive of an 8.3 mm adenoma in the left adrenal gland. Electronically Signed: Jordan Yu, at 9:52 EDT , Service support ,
--- NOTE | 2020-02-28 08:22 | ED.DCSUM_ITS ---
- ER Visit Summary Date of Service: 02/28/20 Chief Complaint: [Right flank pain] History of Present Illness: The patient is a 75 F [presents to the emergency department complaint of flank pain that started yesterday. Patient states the pain is been continuous but waxes and wanes in intensity. Patient denies any fevers. She has had some slight urinary frequency but no dysuria. She denies any fevers. She is never had pain like this before. Patient states that the pain radiates to the front of the lower abdomen. Patient was seen in urgent care and referred to the ER this morning. Patient rates her pain an 8 out of 10. Patient has history of diabetes, asthma, high cholesterol, and bipolar disorder. Patient has history of prior appendectomy and cholecystectomy.] Physical Examination: [HEENT-PERRLA, EOMI. Cranial nerves II through XII grossly intact. TMs clear. Mucous membranes moist. No adenopathy. Cardiovascular-regular rate and rhythm without murmur or ectopy Lungs-clear to auscultation, chest wall stable without crepitus or subcu emphysema Abdomen-normoactive bowel sounds, soft. Patient has tenderness palpation over right lower quadrant with some guarding. Patient has CVA tenderness on the right. There is no rebound, rigidity, or frail signs. Back exam-patient has tenderness diffusely over the lumbar spine as well as the lumbar paraspinal musculature. Negative straight leg raises. Deep tendon reflexes are plus 2 out of 4 bilaterally at the patella and Achilles. Patient has normal sensation to light touch. Extremities-intact ?4, normal range of motion, normal pulses, atraumatic] Test Results: [CBC with differential is normal. Chemistries unremarkable. Urinalysis was normal. CT flank showed a left adrenal adenoma as well as an IUD within the uterus and bilateral intrarenal calculi.] Emergency Department Course and Treatment: [She was medicated with morphine 4 mg IV as well as Zofran 4 mg IV and Toradol 10 mg IV. Patient had good pain relief with that.] Treatment Plan: [We will be given a prescription for [place] for pain. Patient advised to follow-up with her primary care physician 3 to 5 days.] Disposition: [Discharged home in stable condition. Advised to return if worsening pain, weakness in extremities, change in bowel or bladder function, or condition should worsen anyway] Impression: [Flank pain/back pain-suspect lumbar radiculopathy/sciatica] This note was generated with [employer] dictation software. It may contain incorrect words, spelling, and punctuation that were not noted in review of the chart prior to signing ED Disposition - Plan for ED Patient: Referrals: Joan New PA [Primary Care Provider] -
[2020-02-28] MEDS: Ondansetron 4 MG/2 ML Vial IV (08:48)
[2020-02-28] MEDS: Ketorolac 30 MG/ML Syringe 10 MG IV (08:48)
[2020-02-28] MEDS: Morphine 4 MG/ML Syringe IV (08:50)
[2020-02-28] MEDS: 0.9% Normal Saline 1,000 ML 125 ML IV (08:51)
[2020-02-28 09:29] LABS: Absolute Lymphocyte Count 2.23 X10^3/uL (0.83-4.51); Absolute Neutrophil Count 3.7 X10^3/uL (2.0-7.7); Basophil# 0.04 X10^3/uL; Basophil% 0.6 % (0-1); Eosinophils% 4.3 % (0-5); Hematocrit 42.7 % (37-47); Hemoglobin 13.5 g/dL (12.0-15.0); Lymphocyte # 2.23 X10^3/ul (4.0); Lymphocyte % 31.6 % (19-41); Mean Corp Hgb Conc 31.6 g/dL (32-36); Mean Corpuscular Hgb 30.7 pg (27.0-32.0); Monocyte# 0.72 X10^3/uL; Monocyte% 10.2 % (0-10); NRBC Flagged by Analyzer 0 % (0-5); Neutrophil # 3.73 X10^3/uL (2.7-7.7); Neutrophil % 52.9 % (47-70); POSITIVE COUNT YES; RBC Distribution Width CV 12.9 % (11.6-14.6); RBC Distribution Width SD 46.1 fl (35.1-43.9); White Blood Count 7.1 K/mm3 (4.4-11.0)
[2020-02-28 09:47] LABS: Anion Gap 5 (5-15); BUN 14 mg/dL (7-18); BUN/Creat Ratio 20.3 RATIO (10-20); Calcium,Total 8.7 mg/dL (8.5-10.1); Chloride 107 mmol/L (98-107); Creatinine, Serum 0.69 mg/dL (0.55-1.02); EST Glomerular Filtration Rate 88 mL/min (>60); Est Glom Filt Rate - Afr Amer 107 mL/min (>60); Estimated Creatinine Clearance 66.62 ml/min; Glucose 103 mg/dL (74-106); Potassium 4.9 mmol/L (3.5-5.1); Sodium Level 141 mmol/L (136-145)
[2020-02-28 09:49] LABS: Differential Indicated SCAN CRITERIA MET
[2020-02-28 09:51] LABS: Platelet Estimate ADEQUATE (ADEQ)
[2020-02-28 10:23] VITALS: BP 155/77; PULSE 83; RESP 18; O2SAT 96
[2020-02-28 10:42] LABS: Bacteria 0 SEEN /hpf (None Seen); Mucous, Urine 0 SEEN /hpf (<or=2+); Red Blood Cells-Urine 0 SEEN /hpf (0-5); Squamous Epithelial Cells - UA 0 SEEN /hpf (5-10); White Blood Cells 0 SEEN /hpf (0-5)
[2020-02-28 10:44] LABS: Color, Urine Yellow (Yellow); Glucose, Dipstick Normal (Normal); Ketone-Dipstick Negative (Negative); Leukocyte Esterase-Dipstick Negative /ul (Negative); Nitrite-Dipstick Negative (Negative); Occult Blood-Urine Negative /ul (Negative); Protein-Dipstick Negative (Negative); Specific Gravity, Urine 1.015 (1.002-1.030); Urine Bilirubin Dipstick Negative (Negative); Urine Clarity Clear (Clear); Urine Urobilinogen Normal (Normal)
--- NOTE | 2020-02-28 11:02 | DCINST.ED_ITS ---
ED Disposition - Plan for ED Patient: Instructions: ED Flank Pain Uncertain Cause, Understanding Sciatica Prescriptions: Hydrocodone Bitart/Apap 5-325 [[place] 5MG-325MG] 1 tablet PO Q4H PRN PRN 2 Days #15 tablet PRN Reason: Pain Transmission Status: Sent to [address] Referrals: Joan New PA [Primary Care Provider] - 3-5 Days
--- NOTE | 2020-02-28 11:02 | ED.DEP ---
ED Disposition - Plan for ED Patient: Instructions: ED Flank Pain Uncertain Cause, Understanding Sciatica Prescriptions: Hydrocodone Bitart/Apap 5-325 [[place] 5MG-325MG] 1 tablet PO Q4H PRN PRN 2 Days #15 tablet PRN Reason: Pain Transmission Status: Sent to [address] Referrals: Joan New PA [Primary Care Provider] - 3-5 Days
[2020-02-28 11:31] VITALS: BP 151/79; PULSE 76; RESP 20; O2SAT 98
--- NOTE | 2020-02-28 11:33 | ED.RN ---
THIS NURSE REVIEWED D/C INSTRUCTIONS WITH PT. PT VERBALIZED UNDERSTANDING OF INSTRUCTIONS.IV D/C. IV CATHETER INTACT. PT TOLERATED WELL. PT DENIES FURTHER NEEDS OR QUESTIONS AT THIS TIME. PT AMBULATES FROM ROOM ON OWN WITHOUT ASSISTANCE FROM STAFF
== END 2020-02-28 11:35 | disposition home or self-care (01) ==
LOC: ED 09:19
PROVIDERS: Emergency Provider Emergency Medicine; PCP Physician Assistant
DX: M54.41 Lumbago with sciatica, right side (principal); E11.9 Type 2 diabetes mellitus without complications; E78.00 Pure hypercholesterolemia, unspecified; J45.909 Unspecified asthma, uncomplicated; F31.9 Bipolar disorder, unspecified; Z79.84 Long term (current) use of oral hypoglycemic drugs; Z79.899 Other long term (current) drug therapy
CPT/HCPCS: 74176; 80048; 81001; 85025; 96361; 96374; 96375; 99283; J7030; A4216; J2405

== ENCOUNTER 2020-12-29 15:29 | Emergency (ER) | payer MEDICARE, OTHER, SELFPAY ==
[2020-12-29 15:29] VITALS: BP 152/100; PULSE 109; RESP 16; TEMP 36.6; O2SAT 96; BMI 37.8
--- NOTE | 2020-12-29 15:31 | EKG12_ITS ---
Test Reason : CP Blood Pressure : / mmHG Vent. Rate : 105 BPM Atrial Rate : 105 BPM P-R Int : 204 ms QRS Dur : 084 ms QT Int : 332 ms P-R-T Axes : 037 031 -01 degrees QTc Int : 438 ms Sinus tachycardia Possible Inferior infarct , age undetermined Abnormal ECG Confirmed by CICI MONTES, KAI ([id number]), editor book JULIANN LEVI ([id number]) on 01/01/2021 9:46:29 AM Referred By: MERNA Confirmed By:KAI BOLANOS MD
--- NOTE | 2020-12-29 16:20 | RAD_ITS ---
STUDY: X-RAY CHEST REASON FOR EXAM: Female, 75 years old. Chest pain TECHNIQUE: Frontal view COMPARISON: None. FINDINGS: The lungs are clear and expanded. There is no demonstrated pleural abnormality. Cardiomegaly. Normal mediastinum and karla. Normal visualized pulmonary arteries. Normal visualized aortic arch and descending thoracic aorta. Degenerative changes of the thoracic spine. Status post surgical fusion at the lower cervical levels. Degenerative changes of the right shoulder. Surgical clips are noted over the bilateral axilla. Hiatal hernia. RAD/Chest 1 View (Portable) IMPRESSION: Cardiomegaly. Hiatal hernia. Electronically Signed: Sammy Khan DO at 17:51 EDT Tel [phone], Service support ,
--- NOTE | 2020-12-29 16:21 | ED.DCSUM_ITS ---
- ER Visit Summary Date of Service: 12/29/20 Chief Complaint: Midsternal chest pain History of Present Illness: The patient is a 75 F diabetes, hypertension, high cholesterol. Patient had prior breast cancer and had mastectomies. No cardiac history last stress test was 6 to 7 years ago and was negative. Has never had a heart cath. Patient states around 4 AM this morning she was awoken by midsternal chest pain radiating to her left shoulder and neck. She denies any diaphoresis or dyspnea. Has had some nausea with that recently she has had some mild exertional dyspnea but no exertional chest pain. No history of DVT or PE. This is not pleuritic. No recent travel, surgery or immobilization. Calf pain or swelling. No hemoptysis. Physical Examination: Older female accompanied by her vital signs stable and afebrile. Pulse ox 96% on room air no signs of hypoxia. H EENT exam unremarkable. Neck nontender no JVD. No lymphadenopathy. Lungs clear to auscultation bilaterally. Heart regular rhythm. Rate about 100 no murmur. Chest wall nontender. Abdomen soft nontender. Patient moving all 4 extremities. Calves are nontender without edema or cords. Neurologically patient is awake and alert. Moving all 4 extremities. 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 Normal dorsi plantarflexion. Normal speech. No focal motor deficits. Test Results: EKG shows a normal sinus rhythm rate of 105 consistent with a sinus tachycardia. No signs of VT or ischemia. X-ray portable single view interpreted both by myself and the radiologist shows chronic changes no acute process. CBC normal. White count 8. Hemoglobin 13. Chemistries unremarkable normal creatinine and gap. Troponin normal. Repeat exam patient is tearful on repeat exam at 6:10 PM. She states her and her simply cannot afford to have an observation admission. She understands that I do not like that role either. She is going to sign out AGAINST MEDICAL ADVICE. I will notify her primary care physician or the physician covering that she will need to be seen as soon as possible hopefully this week and have an outpatient stress test set up. Patient understands my concern that this could be cardiac and could be obstruction of one of her coronary vessels that could lead to an VT, or disability. Emergency Department Course and Treatment: Patient has concerning chest pain is midsternal radiates to her shoulder and her neck. She is diabetic, hypertensive and high cholesterol and has not had a cardiac work-up for years. She has never had a cardiac catheterization. She undergo cardiac work-up and received p.o. aspirin. She will most likely need to be admitted for further evaluation. Treatment Plan: Start 1 daily baby aspirin. Return if recurrent pain or feeling worse. Call primary care physician's office and be set up for an outpatient stress test this week if possible. Disposition: Admission Impression: Acute chest pain of uncertain etiology concern for cardiac disease Patient signing out AGAINST MEDICAL ADVICE History of diabetes History of hypertension high cholesterol This note was generated with [employer] dictation software. It may contain incorrect words, spelling, and punctuation that were not noted in review of the chart prior to signing ED Disposition - Plan for ED Patient:
--- NOTE | 2020-12-29 17:00 | ED.RN ---
lab called to draw blood
[2020-12-29] MEDS: Aspirin 325 MG Tablet PO (17:03)
[2020-12-29 17:24] VITALS: BP 137/82; PULSE 92; RESP 16; O2SAT 95
[2020-12-29 17:27] LABS: Absolute Lymphocyte Count 2.82 X10^3/uL (0.83-4.51); Absolute Neutrophil Count 4.7 X10^3/uL (2.0-7.7); Basophil# 0.06 X10^3/uL; Basophil% 0.7 % (0-1); Eosinophil# 0.34 X10^3/uL; Eosinophils% 3.8 % (0-5); Hemoglobin 13.3 g/dL (12.0-15.0); Lymphocyte # 2.82 X10^3/ul (4.0); Lymphocyte % 31.8 % (19-41); Mean Corp Hgb Conc 31.7 g/dL (32-36); Mean Corpuscular Hgb 30.9 pg (27.0-32.0); Mean Corpuscular Volume 97.4 fL (81-99); Mean Platelet Vol. 10.1 fl (6.2-12.0); Monocyte% 10.1 % (0-10); NRBC Flagged by Analyzer 0 % (0-5); Neutrophil # 4.72 X10^3/uL (2.7-7.7); Neutrophil % 53.3 % (47-70); Platelet Count 323 K/mm3 (150-450); RBC Distribution Width CV 12.8 % (11.6-14.6); RBC Distribution Width SD 46.4 fl (35.1-43.9); Red Blood Count 4.31 M/mm3 (4.2-5.4); White Blood Count 8.9 K/mm3 (4.4-11.0)
--- NOTE | 2020-12-29 17:28 | ED.RN ---
pt fatigued for last few days
[2020-12-29 17:45] LABS: Anion Gap 4 (5-15); BUN 18 mg/dL (7-18); BUN/Creat Ratio 24.1 RATIO (10-20); Calcium,Total 9.5 mg/dL (8.5-10.1); Chloride 105 mmol/L (98-107); Creatinine, Serum 0.75 mg/dL (0.55-1.02); EST Glomerular Filtration Rate 80 mL/min (>60); Est Glom Filt Rate - Afr Amer 97 mL/min (>60); Estimated Creatinine Clearance 66.15 ml/min; Glucose 84 mg/dL (74-106); Potassium 3.9 mmol/L (3.5-5.1); Sodium Level 139 mmol/L (136-145)
--- NOTE | 2020-12-29 18:28 | ED.DEP ---
ED Disposition - Plan for ED Patient: Disposition: Home or Assisted Living Instructions: ED Chest Pain, Uncertain Cause Referrals: Joan New PA [Primary Care Provider] - 1 Day Additional Instructions: Call and follow-up with your doctors office tomorrow. They need to see you and schedule for an outpatient stress test as soon as possible and hopefully this week. Your work-up today was normal but I am concerned this could be chest pain related to your heart. Do not do anything exertional until you have your stress test. Begin taking 1 baby aspirin per day. Return emergency department if you develop worse pain or feel worse.
[2020-12-29 19:00] VITALS: BP 120/90; PULSE 71; RESP 18; O2SAT 99
== END 2020-12-29 19:02 | disposition left against medical advice (07) ==
PROVIDERS: Emergency Provider Emergency Medicine; PCP Physician Assistant
DX: R07.9 Chest pain, unspecified (principal); I10 Essential (primary) hypertension; E11.9 Type 2 diabetes mellitus without complications; E78.00 Pure hypercholesterolemia, unspecified; J45.909 Unspecified asthma, uncomplicated; F31.9 Bipolar disorder, unspecified; Z79.84 Long term (current) use of oral hypoglycemic drugs; Z79.899 Other long term (current) drug therapy; Z53.29 Procedure and treatment not carried out because of patient's decision for other reasons
CPT/HCPCS: 36415; 71045; 80048; 84484; 85025; 93005; 99285; A4216

== ENCOUNTER 2022-06-12 03:41 | Emergency (ER) | payer MEDICARE, OTHER, SELFPAY ==
[2022-06-12 03:45] VITALS: BP 145/101; PULSE 101; RESP 16; TEMP 36.4; O2SAT 97; BMI 38.0
--- NOTE | 2022-06-12 03:49 | ED.RN ---
patient yossi reports to the doctor the cp was in [place] and a week ago and different from what is happening now. Has appt with PCP Tuesday. This is pain in L arm and shoots into pointer finger and middle finger.
[2022-06-12] MEDS: Morphine 2 MG/ML Syringe IM (04:09)
--- NOTE | 2022-06-12 04:17 | ED.RN ---
pt and spouse state they're unable to afford any testing and request d/c at this time.
--- NOTE | 2022-06-12 04:17 | EX.ED.UPPERE ---
HPI History of Present Illness Chief Complaint: Upper Extremity Injury Informant: patient Onset/Context/Timing Onset: Today Context: Sudden Onset (Awoke in the middle of the night with symptoms and promptly came to ED) Timing: Continuous Quality of Pain: - (Like the pain you get when you have frostbite) Location: Left posterior shoulder, left upper arm, down forearm into fingers Current Severity: Severe Maximum Severity: Severe Worsened by: Nothing in particular Relieved by: Nothing. Took an unknown prescription analgesic that contained codeine. Associated Symptoms Associated Symptoms: Positive for Parasthesia (Fingers 2-4); Negative for Weakness or Loss of Funtion Narrative Narrative: Patient woke up with this discomfort in her left upper extremity. She states it is burning and feels like when her arm gets too cold see above. She was recently in a hospital somewhere in [place] because she was having left upper chest discomfort, states she was admitted there and had a stress test that was negative and they told her that the etiology was likely noncardiac. She has not yet been able to follow-up, currently is the and she has an appointment on Tuesday to see her PCP and follow-up. She has never had the symptoms before. She has pain that goes from her neck into her trapezius, and down the back of her left upper arm and forearm into her hand. She has some paresthesias in her hand. She is a difficult stick and when she was recently hospitalized, she has contusions in both forearms from attempts at IV placement. The is concerned that she has a blood clot. She has been moving around without difficulty until she woke up with this discomfort this morning. She denies have any known history of DDD in neck or low back, no known history of sciatica. No history of blood clots, she does not take any anticoagulants. [facility] Medical History Asthma Bipolar II disorder DM2 (diabetes mellitus, type 2) HLD (hyperlipidemia) HTN (hypertension) Neuropathy due to type 2 diabetes mellitus Personal history of breast cancer Status post closed fracture of right hip Home Medications duloxetine 30 mg capsule,delayed release 30 mg PO DAILY DEPRESSION 04/13/18 [History Last Taken Unknown] esomeprazole magnesium 40 mg capsule,delayed release (Nexium) 40 mg PO DAILY REFLUX 04/13/18 [History Last Taken Unknown] gabapentin 600 mg tablet 600 mg PO BID 04/13/18 [History Last Taken Unknown] metoprolol succinate 50 mg tablet,extended release 24 hr (Toprol XL) 50 mg PO QHS BP 04/13/18 [History Last Taken 07/16/19 08:30] pravastatin 80 mg tablet 80 mg PO QHS CHOLESTEROL 04/13/18 [History Last Taken 06/08/18 08:30] vitamins A,C,M-qsgm-mbckgv 14,320 unit-226 mg-200 unit capsule (PreserVision AREDS) 1 ea PO DAILY EYES 04/13/18 [History Last Taken Unknown] albuterol sulfate 2.5 mg/3 mL (0.083 %) solution for nebulization 2.5 mg inhalation Q4H PRN PRN Wheezing 06/02/18 [History Last Taken Unknown] albuterol sulfate 90 mcg/actuation aerosol inhaler (Proventil HFA) 6.7 g IH PRN PRN Asthma/WHEEZING 06/02/18 [History Last Taken Unknown] metformin 500 mg tablet 500 mg PO DAILY 06/02/18 [History Last Taken Unknown] cholecalciferol (vitamin D3) 50 mcg (2,000 unit) capsule (Vitamin D3) 2,000 unit PO QHS 12/08/18 [History Last Taken Unknown] bupropion HCl 150 mg tablet,12 hr sustained-release 300 mg PO DAILY 12/29/20 [History Last Taken Unknown] calcium carbonate 500 mg-vitamin D3 15 mcg (600 unit) tablet 1 each PO DAILY 12/29/20 [History Last Taken Unknown] cyclosporine 0.05 % eye drops in a dropperette 1 each OP BID 12/29/20 [History Last Taken Unknown] ipratropium bromide 0.02 % solution for inhalation 1 PRN PRN Sob &/Or Wheezing 12/29/20 [History Last Taken Unknown] Allergy/AdvReac Type Severity Reaction Status Date / Time hydromorphone [From Dilaudid] Allergy hallucinati Verified 12/29/20 15:31 ons metoclopramide Allergy Other Verified 12/29/20 15:31 nifedipine Allergy Other Verified 12/29/20 15:31 nitrofurantoin Allergy Other Verified 12/29/20 15:31 lorazepam [From Ativan] AdvReac Other Verified 12/29/20 15:31 tramadol [From Ultram] AdvReac Other Verified 12/29/20 15:31 Surgical History (Updated 12/08/18 @ 12:[address] Gary Lopez MD) Status post total knee replacement, left Social History Smoking Status: Former smoker ROS ROS ED Constitutional Constitutional ED: Denies chills or fever(s) Musculoskeletal Musculoskeletal: Reports extremity pain; Denies neck pain Integumentary Denies Abrasions, rash or wounds Neurologic Neurologic: Denies paresthesias or weakness EXAM Physical Exam Const Vital Signs: 06/12/22 03:45 Temperature 97.5 F L Temperature Source Temporal Pulse Rate 101 H Respiratory Rate 16 Blood Pressure 145/101 H Blood Pressure Mean 115 Pulse Ox 97 Oxygen Delivery Method Room Air Positive well nourished and well developed General Appearance ED: well developed and NAD Neck full ROM and supple Back/Spine normal ROM and normal to inspection Extremity normal to inspection and full ROM Extremity Narrative: All compartments soft and nontender although with palpation at the lateral/posterior aspect of the distal upper arm/elbow soft tissues, the patient states that the painful paresthesias are more prominent in her fingers. No bony tenderness throughout the left upper extremity, full range of motion of all joints without any difficulty including pronation and supination of the forearm. No palpable cords or signs of varicosities, there is a contusion at the volar proximal left forearm as there is on the right as well, there is no palpable collection it appears to be aging, and there are no palpable venous cords in this area, nor signs of infection. 2+/4 radial pulse. Brisk cap refill. No excessive warmth compared with other areas or the contralateral extremity anywhere in the left upper extremity. Normal reflexes. No epitrochlear lymphadenopathy. Neuro oriented x3, no focal motor deficits and no sensory deficits noted Neuro Narrative: No gross sensory deficits, patient has paresthesias in fingers 3 and 4. Sensorium / Orientation: alert Psych thought process normal Mood & Affect: anxious Skin no wounds Rashes: no rashes MDM MDM MDM Narrative Medical decision making narrative: I think given the history and exam that this patient is not having anginal equivalent, she has had no chest discomfort or shortness of breath this morning or symptoms other than her left upper extremity, I think this is a cervical radiculopathy, most likely at C7, may involve C8 as well, it certainly is possible there can be some overlap or dual involvement with nearby levels depending on what the pathology is. I offered to obtain some x-rays to screen for disc space issues in this region, I do not have the ability to do a stat MRI here for this. She presents at about 4 in the morning. She declines and prefers to go home, she was given morphine, and I see that she is already on gabapentin in addition to the prescription narcotic that she suggests. Therefore I am not writing any prescriptions right now and they understand that. Discharge Plan Triage Chief Complaint: Upper Extremity Injury Other Complaint: Chest Pain ED Provider: Danny Florian Dx/Rx/DC Orders Clinical Impression: Cervical radiculopathy at C7, Arm pain, left, Paresthesia of left arm Instructions: Radiculopathy Cervical Prescriptions: No Action gabapentin 600 MG tablet 600 mg PO BID metoprolol succinate [Toprol XL] 50 MG Tab.Er.24h 50 mg PO QHS pravastatin 80 MG tablet 80 mg PO QHS esomeprazole magnesium [Nexium] 40 MG capsule 40 mg PO DAILY duloxetine 30 MG capsule 30 mg PO DAILY vitamins A,C,U-vbrd-ulmjap [PreserVision AREDS] 1 EACH capsule 1 ea PO DAILY metformin 500 MG tablet 500 mg PO DAILY albuterol sulfate 2.5 MG/3 ML Vial.Neb. 2.5 mg inhalation Q4H PRN PRN (Reason: Wheezing) albuterol sulfate [Proventil HFA] 6.7 GM Hfa.Aer.Ad 6.7 g IH PRN PRN (Reason: Asthma/WHEEZING) cholecalciferol (vitamin D3) [Vitamin D3] 2,000 UNIT capsule 2,000 unit PO QHS bupropion HCl 150 MG tablet sustained-release 12 hr 300 mg PO DAILY ipratropium bromide 0.2 MG/ML solution 1 PRN PRN (Reason: Sob &/Or Wheezing) cyclosporine 1 EACH dropperette 1 each OP BID calcium carbonate-vitamin D3 1 EACH tablet 1 each PO DAILY Primary Care Provider: Joan New Referrals: Joan New PA [Primary Care Provider] - Keep Bárbara appointment Disposition Disposition: Home, Self Care
[2022-06-12 04:35] VITALS: BP 117/68; PULSE 80; O2SAT 97
== END 2022-06-12 04:35 | disposition home or self-care (01) ==
PROVIDERS: Emergency Provider Emergency Medicine; PCP Physician Assistant; Visit Provider Emergency Medicine
DX: M54.12 Radiculopathy, cervical region (principal); M79.602 Pain in left arm; R20.2 Paresthesia of skin; Z87.891 Personal history of nicotine dependence
CPT/HCPCS: 96372; 99282; A4216

== ENCOUNTER → 2024-05-14 | Outpatient (CLI) | payer MEDICARE, OTHER, SELFPAY ==
--- NOTE | 2024-05-14 10:29 | VDLE_ITS ---
Reason For Study: R/O DVT RIGHT LEFT GSV is normal. GSV is normal. CFV is compressible, spontaneous, phasic, CFV is compressible, spontaneous, phasic, competent and demonstrates normal competent, and demonstrates normal augmentation. augmentation. FV is compressible, spontaneous, phasic, FV is compressible, spontaneous, phasic, competent and demonstrates normal competent and demonstrates normal augmentation. augmentation. POP V is compressible, spontaneous, phasic, POP V is compressible, spontaneous, phasic, competent and demonstrates normal competent and demonstrates normal augmentation. augmentation. T/P Trunk is compressible. T/P Trunk is compressible. PTV is compressible. PTV is compressible. RT PerV is compressible. LT PerV is compressible. Procedure This is a venous duplex using B-mode, color flow and spectral Doppler. Exam performed in department. The exam was diagnostic. A preliminary report was called and/or faxed to Dr. Larios office. VL/Venous Duplex US - Edwin Extrem Interpretation Summary Deep veins of the bilateral lower extremities are patent and compressible segme ntally. There is no evidence of bilateral lower extremity deep vein thrombosis. The bilateral great saphenous veins appear patent and compressible segmentally Ordering Physician: Kody Larios Referring Physician: Joan New Performed By: Shaggy Marte RVT
== END | disposition home or self-care (01) ==
PROVIDERS: PCP Physician Assistant; Referring Provider Podiatrist Foot & Ankle Surgery; Visit Provider Podiatrist Foot & Ankle Surgery
DX: R22.43 Localized swelling, mass and lump, lower limb, bilateral (principal)
CPT/HCPCS: 93970

== ENCOUNTER → 2024-06-13 | Outpatient (CLI) | payer MEDICARE, OTHER, SELFPAY ==
[2024-06-13 10:18] LABS: Mucous, Urine 0 SEEN /hpf (<or=2+); Red Blood Cells-Urine 0 SEEN /hpf (0-5)
--- NOTE | 2024-06-13 11:07 | RAD_ITS ---
STUDY: X-RAY - LUMBAR SPINE REASON FOR EXAM: Female, 79 years old. Radiculopathy. TECHNIQUE: 4 view(s) of the lumbar spine were obtained. COMPARISON: None FINDINGS: Osteopenia. Normal lordosis. No scoliosis. 9 mm of anterolisthesis of L5 on S1. Diffuse moderate lower thoracic and lumbosacral facet sclerosis. Intervertebral disc space narrowing diffusely with osteophytes most marked in the lower thoracic region and at L5-S1. Cholecystectomy clips. RAD/L/S Spine Min 4 Views IMPRESSION: Osteopenia with [id number] lower thoracic and lumbosacral spondylosis. Electronically Signed: Mauricio Simpson MD at 15:23 EDT ,
--- NOTE | 2024-06-13 11:13 | RAD_ITS ---
INDICATION: RADICULOPATHY EXAMINATION/TECHNIQUE: X-RAY - RIGHT XR Knee Complete 4 Views or More 4 VIEWS COMPARISON: No relevant prior comparison study available FINDINGS: SOFT TISSUES: Anterior swelling over the patellar tendon. No gas. No radiopaque foreign body. BONES/JOINTS: Partially visualized fixation hardware in the right femur. No acute fracture or subluxation.. Normal alignment. There is narrowing at the medial and patellofemoral compartment joint spaces. Tricompartmental marginal osteophytes. Tiny joint effusion. No sclerotic or destructive changes observed. RAD/Knee 4 or More Views IMPRESSION: Tricompartmental moderate degenerative changes. Electronically Signed: Junior Baker MD at 16:21 EDT ,
[2024-06-13 11:31] LABS: Color, Urine Yellow (Yellow); Glucose, Dipstick Normal (Normal); Ketone-Dipstick Negative (Negative); Leukocyte Esterase-Dipstick 25 /ul (Negative); Nitrite-Dipstick Negative (Negative); Occult Blood-Urine Negative /ul (Negative); Protein-Dipstick 15 mg/dl (Negative); Urine Bilirubin Dipstick Negative (Negative); Urine Clarity Sl. Cloudy (Clear); Urine Urobilinogen 1 mg/dl (Normal)
[2024-06-13 11:33] LABS: Absolute Lymphocyte Count 2.61 X10^3/uL (0.83-4.51); Absolute Neutrophil Count 3.1 X10^3/uL (2.0-7.7); Basophil# 0.05 X10^3/uL; Basophil% 0.7 % (0-1); Eosinophil# 0.21 X10^3/uL; Eosinophils% 3.1 % (0-5); Hematocrit 42.7 % (37-47); Hemoglobin 13.6 g/dL (12.0-15.0); Lymphocyte # 2.61 X10^3/ul (0.83-4.51); Lymphocyte % 38.4 % (19-41); Mean Corp Hgb Conc 31.9 g/dL (32-36); Mean Corpuscular Hgb 29.6 pg (27.0-32.0); Mean Corpuscular Volume 92.8 fL (81-99); Mean Platelet Vol. 9.8 fl (6.2-12.0); Monocyte# 0.77 X10^3/uL; Monocyte% 11.3 % (0-10); NRBC Flagged by Analyzer 0 % (0-5); Neutrophil # 3.14 X10^3/uL (2.7-7.7); Neutrophil % 46.2 % (47-70); Platelet Count 301 K/mm3 (150-450); RBC Distribution Width CV 12.6 % (11.6-14.6); RBC Distribution Width SD 43.1 fl (35.1-43.9); White Blood Count 6.8 K/mm3 (4.4-11.0)
[2024-06-13 11:44] LABS: Bacteria 1+ /hpf (None Seen); Squamous Epithelial Cells - UA 0-5 SEEN /hpf (5-10); White Blood Cells 0-5 SEEN /hpf (0-5)
[2024-06-13 11:58] LABS: ALB/GLOB Ratio 0.8 RATIO (0.9-2.4); AST(SGOT) 22 U/L (15-37); Alanine Aminotransfer ALT/SGPT 34 U/L (13-56); Albumin, Serum 3.4 g/dL (3.2-5.0); Alkaline Phosphatase 91 U/L (45-117); Anion Gap 5 (5-15); BUN 17 mg/dL (7-18); BUN/Creat Ratio 23.7 RATIO (10-20); Calcium,Total 9.5 mg/dL (8.5-10.1); Chloride 102 mmol/L (98-107); Cholesterol 195 mg/dL (200); Creatinine, Serum 0.72 mg/dL (0.55-1.02); EST Glomerular Filtration Rate 84 mL/min (>60); Est Glom Filt Rate - Afr Amer 101 mL/min (>60); Globulin 4.1 g/dL (2.2-4.2); Glucose 117 mg/dL (74-106); High Density Lipoprotein 67 mg/dL; Magnesium 2.1 mg/dL (1.6-2.6); Protein, Total 7.5 g/dL (6.4-8.2); Sodium Level 137 mmol/L (136-145); Triglycerides 121 mg/dL; Very Low Density Lipoprotein 24 mg/dL (5-40)
[2024-06-13 12:04] LABS: Vitamin B12 677 pg/mL (211-911)
[2024-06-13 12:42] LABS: Hemoglobin A1c 6.2 % (3.8-5.6)
== END | disposition home or self-care (01) ==
PROVIDERS: PCP Physician Assistant; Referring Provider Anesthesiology; Visit Provider Registered Nurse
DX: N39.0 Urinary tract infection, site not specified (principal); M54.16 Radiculopathy, lumbar region; Z79.899 Other long term (current) drug therapy
CPT/HCPCS: 36415; 72110; 73564; 80053; 80061; 81001; 82607; 83036; 83735; 85025

== ENCOUNTER → 2024-08-03 | Outpatient (CLI) | payer MEDICARE, OTHER, SELFPAY ==
--- NOTE | 2024-08-03 07:25 | MRI_ITS ---
HISTORY: Radiculopathy, low back pain and right leg pain. TECHNIQUE: Multiplanar and multisequence MR images of the lumbar spine were obtained without intravenous contrast. 145 images. COMPARISON: XR 06/13/2024. FINDINGS: VERTEBRAE: Vertebral body heights maintained. Mild degenerative endplate changes at L5-S1. No other significant bone marrow signal abnormality. ALIGNMENT: Unchanged mild anterolisthesis of L5-S1. CONUS: Normal morphology and position of the conus medullaris at L1-2. INTERVERTEBRAL DISCS: T12-L1: Mild disc bulge without significant central canal stenosis or foraminal narrowing based on the sagittal images. L1-2: Mild disc bulge without significant central canal stenosis or foraminal narrowing. Right perirenal cyst noted. L2-3, L3-4: Mild disc bulges with facet arthropathy resulting in very mild central canal stenosis and mild bilateral foraminal narrowing. L4-5, L5-S1: No significant posterior disc protrusion or central canal stenosis. Facet arthropathy with very mild bilateral foraminal narrowing SOFT TISSUES: No paraspinal fluid collection. Mild posterior subcutaneous edema. MRI/Spine Lumbar (Routine) IMPRESSION: Mild degenerative disc disease of the lumbar spine as above. Electronically Signed: April Maciel MD at 15:07 EDT ,
== END | disposition home or self-care (01) ==
LOC: MRI 07:21
PROVIDERS: PCP Physician Assistant; Referring Provider Anesthesiology; Visit Provider Anesthesiology
DX: M47.26 Other spondylosis with radiculopathy, lumbar region (principal)
CPT/HCPCS: 72148

== ENCOUNTER 2024-10-11 10:30 | Outpatient (RCR) | payer MEDICARE, OTHER, SELFPAY ==
--- NOTE | 2024-06-18 13:53 | HP.PTEVAL_ITS ---
Patient's Visit Information Visit Information Visit Information: MEGHA DRAKE is a 79 year old F referred to Physical Therapy by Dr. Kody Larios DPM with a diagnosis of DM with polyneuropathy. Date of Evaluation: 06/18/24 Physical Therapist: Noe Brown DPT, OCS, CSCS Visit Plan Frequency: 2x /Week Duration: 4-6 Weeks Plan: 2x/week for 4-6 to start by teaching aquatic ex for core strength, LB ROM, LE and postural strength and HS stretching to I program at pool of choice or HEP/gym IE: taught pelvic tilt as ROM ex for LB Subjective Subjective: I get tired easily and SOB walking even 400 feet back to [facility] room. Not sure why and is getting that checked out, doctor is running bloodwork. Legs get painful distally in feet. Feels neuropathy in legs from Dm. Achiness in R leg much of time. Had US and no blood clot. Knee and hips were x rayed but no results yet. Just not getting around good. Gets exhausted. Trip to basement is exhausting and has been for months. doctor wants more more exercise. Sleep is not great due to R leg achiness and discomfort. Again doctor's are checking this out. Foot doctor wants her on regualr exercises. Not employed. spends day at [employer] 3x/week including chair yoga adnt he like. Meets for 3-4 hours per day. No regualr exercises. Basic ADLS all I. hobbies: include stand up comedy and getting up steps is tough. Has steps to basement at home and they are fatiguing and tiring. Craft table in basement. Will see pain management first time next week for back. Pain R leg: Pain Intensity (Out of 10): 5 Pain Intensity Range: 0 Objective Objective: Walks into PT slowy with R antalgia but I. Trasnfers I with UE, steps with either and one rail. Short steps in gait. Mild SOB after 300 feet gait but recovers quickly. LB AROM ext max limited and painful LB centrally, B SB pain R >L and mod limtied, flexion min limited and no pain. HS mod tight at -28 90/90 test B. Sensation RL lower extremity at deficit to light touch. reflexes 0/3 achilles and R patella adn L patella at 1/3 strength hips 3+ abd, ext, and flexion, knees 3+ ext and 4- flexion, and DF inv/ev 3+ B, muscles tend to give out after 2-3 seconds of testing all over. - slump and - SLR tests. Balance/Special Test Scores Functional Gait Assessment Score: 21 % Disability: 30.0000 Lower Extremity Functional Score: 39 Goals Goal 1:: sleep without interruption 6 hours Goal Time Frame: 4-6 Weeks Goal 2:: I appropriate aquatic, gym or home based ex for sedentarism, core strength adn joint movmement. Goal Time Frame: 4-6 Weeks Goal 3:: Pain R LE 2/10 at worst and 40% better Goal Time Frame: 4-6 Weeks Goal 4:: LEFS 50 Goal Time Frame: 4-6 Weeks Goal 5:: walk 250 feet including 2 steps without SOB Goal Time Frame: 4-6 Weeks Rehabilitation Potential Physical Therapy Diagnosis: weakness and sedentarism leading to mobility deficits and fatigue. Rehabilitation Potential: Fair Anticipated Interventions Patient/Client Instruction: Educate patient on: Condition and Plan of Care For the Purpose of:: To decrease pain, To improve nutrient delivery to tissue, To improve muscle performance and motor function and To improve gait and locomotor functions Therapeutic Exercise to Include: Strength training, Postural training, Fle xibilty training, In an aquatic setting and Active ROM For the Purpose of:: To decrease pain, To increase ROM, To improve nutrient delivery to tissue, To improve muscle performance and motor function, To increase tolerance to activity/condition/position and To improve gait and locomotor functions Text: Thank you for the opportunity to evaluate your patient. For Medicare and Medicare HMO plans, please review the plan of care and approve it. It will need to be FAXED BACK to us at [phone] for Medicare purposes. For Medicare only, by signing this I certify the plan of care. Please let me know if there are questions or concerns regarding this plan of care. Physician Signature: Date:
--- NOTE | 2024-07-19 11:51 | HP.PTREVAL ---
Re-Evaluation Intro: Dr. Kody Larios, DPM, It has been my pleasure to treat MEGHA DRAKE over the last 10 visits for DM with polyneuropathy. Please see the progress note below for an update on the physical therapy plan of care! Subjective Subjective: I was getting better in pool, it has helped a lot. Feels like she can get around easier. Exercises are getting easier. Normal things at home are getting easier. Balance has always been a challenge and continues to be. Has cane and walker at home. holds on to her alot. Fell yesterday after getting. Got DDD and OA on x ray. R leg is painful 7/10 getting out of bed or car. Feels weak. Activities at home: stilla voids vaccuum, energy is still what holds her back. Has changed meds to try and help with leg pain and pain meds for pain and fatigue. They help. Doing exercises at home and chair yoga at her daycare. 100 yards ambulation to mailbox now without SOB. Objective Objective/Function: LB AROM without pain today, slow forward flexion can bother R LE. Walking well today with improved balance on FGA +2. No SOB after 400 feet adn 4 steps.Still painful and weaker R LE on steps. Unmmet goals still appropriate for next 4 week POC with fair prognois for continued improvement ad to meet those goals. Plan Plan Plan: 2x/week x 4 weeks to continue progression in pool including LE and core strength and ROM, Balance and focus on gaining I in pool for [place]. may consider gym after pool I. Balance/Gait/Functional tests Balance/Special Test Scores Functional Gait Assessment Score: 23 % Disability: 23.3400 Lower Extremity Functional Score: 42 Goals Goals Goal 1:: sleep without interruption 6 hours Goal Time Frame: 4-6 Weeks Goal Progress: Goal Met Goal 2:: I appropriate aquatic, gym or home based ex for sedentarism, core strength adn joint movmement. Goal Time Frame: 4-6 Weeks Goal 3:: Pain R LE 2/10 at worst and 40% better Goal Time Frame: 4-6 Weeks Goal Progress: Progressing Goal 4:: LEFS 50 Goal Time Frame: 4-6 Weeks Goal Progress: slow progression Goal 5:: walk 250 feet including 2 steps without SOB Goal Time Frame: 4-6 Weeks Goal Progress: Goal Met Anticipated Interventions Anticipated Interventions Patient/Client Instruction: Educate patient on: Condition and Plan of Care For the Purpose of:: To decrease pain, To improve nutrient delivery to tissue, To improve muscle performance and motor function and To improve gait and locomotor functions Therapeutic Exercise to Include: Strength training, Postural training, Flexibilty training, In an aquatic setting and Active ROM For the Purpose of:: To decrease pain, To increase ROM, To improve nutrient delivery to tissue, To improve muscle performance and motor function, To increase tolerance to activity/condition/position and To improve gait and locomotor functions Re-Evaluation Ending Re-evaluation ending: Please do not hesitate to contact me at [phone] by phone or if you have questions or concerns regarding this new plan of care! Sincerely, Noe Brown, DPT, OCS, CSCS
--- NOTE | 2024-08-23 10:36 | HP.PTREVAL_ITS ---
Re-Evaluation Intro: Dr. Kody Larios, DPJoan, It has been my pleasure to treat MEGHA DRAKE over the last 18 visits for DM with polyneuropathy. Please see the progress note below for an update on the physical therapy plan of care! Subjective Subjective: Had injections from Dr. Burkett a week ago which helped tremendously. May get nerve block at some point. Getting stronger in the pool. 100% better with pain in leg and toes. [facility] Activities at home are pretty normal. Has done the machines at and di well with them. Uses light weights sleep is OK off and on, swelling in ankles kept her up for a while due to urination on water pills. Objective Objective/Function: Good aROM LB without pain today. Walking without deficits with good balance. Limited ROM neck rotation 48 B and feels tight. Pt doing well with pain and pool ex but not sure what to do in gym at [facility] New POC and goal and good prognosis. Plan Plan Plan: 2x/week for 2 weeks new POC to teach gym machine based core, postural and LE strength with pics and list and then I at [employer]. Pt to continue pool at [employer] 2x/week in the meantime. Balance/Gait/Functional tests Balance/Special Test Scores Functional Gait Assessment Score: 23 % Disability: 23.3400 Lower Extremity Functional Score: 54 Goals Goals Goal 1:: sleep without interruption 6 hours Goal Time Frame: 4-6 Weeks Goal Progress: Goal Met Goal 2:: I appropriate aquatic, gym or home based ex for sedentarism, core strength adn joint movmement. Goal Time Frame: 4-6 Weeks Goal Progress: pool not gym yet Goal 3:: Pain R LE 2/10 at worst and 40% better Goal Time Frame: 4-6 Weeks Goal Progress: Goal Met Goal 4:: LEFS 50 Goal Time Frame: 4-6 Weeks Goal Progress: Goal Met Goal 5:: walk 250 feet including 2 steps without SOB Goal Time Frame: 4-6 Weeks Goal Progress: Goal Met Goal 6:: I gym based machine workout for core, posture adn LE Goal Time Frame: 2-4 Weeks Goal Progress: NEW GOAL Anticipated Interventions Anticipated Interventions Patient/Client Instruction: Educate patient on: Condition and Plan of Care For the Purpose of:: To decrease pain, To improve nutrient delivery to tissue, To improve muscle performance and motor function and To improve gait and loc omotor functions Therapeutic Exercise to Include: Strength training, Postural training, Flexibilty training, In an aquatic setting and Active ROM For the Purpose of:: To decrease pain, To increase ROM, To improve nutrient delivery to tissue, To improve muscle performance and motor function, To increase tolerance to activity/condition/position and To improve gait and locomotor functions Re-Evaluation Ending Re-evaluation ending: Please do not hesitate to contact me at [phone] by phone or if you have questions or concerns regarding this new plan of care! Sincerely, Noe Brown, DPT, OCS, CSCS
--- NOTE | 2024-09-13 12:11 | HP.PTDCSUM ---
Discharge Summary D/C summary: It has been my pleasure to treat MEGHA DRAKE referred by Dr. Kody Larios DPM, with the diagnosis of DM with polyneuropathy for a total of 22 visit(s). Discharge Date: 09/13/24 Please see the following information for a summary of their discharge status. Subjective Subjective: Gym went well. No problem in gym. Just got LB procedure which helped with her LBP. It lasted 3.5 weeks. This time not quite as helpful, got that yesterday. neuropathy is good. Been out in gym and will continue to do that I. Pain R leg: Pain Intensity (Out of 10): 5 LBP: Pain Intensity (Out of 10): 1 R Great Toe: Pain Intensity (Out of 10): 0 Overall Improvement % Improvement: 100 Objective Objective/Function: walking well and last goal met today and doing well subjectively Goals Goal 1:: sleep without interruption 6 hours Goal Progress: Goal Met Goal 2:: I appropriate aquatic, gym or home based ex for sedentarism, core strength adn joint movmement. Goal Progress: Goal Met Goal 3:: Pain R LE 2/10 at worst and 40% better Goal Progress: Goal Met Goal 4:: LEFS 50 Goal Progress: Goal Met Goal 5:: walk 250 feet including 2 steps without SOB Goal Progress: Goal Met Goal 6:: I gym based machine workout for core, posture adn LE Goal Progress: Goal Met Plan Plan: d/c D/C Information Discharge Comments: Will continue on own at [facility] d/c sentence: If there are questions or concerns regarding this patient's physical therapy, please feel free to call me at [phone]. Thank you for the referral of this patient. Sincerely, Noe Brown, DPT, OCS, CSCS Balance/Gait/Functional tests Balance/Special Test Scores Functional Gait Assessment Score: 23 % Disability: 23.3400 Lower Extremity Functional Score: 54 Improvement % Improvement: 100
--- NOTE | 2024-09-13 12:53 | HP.PTEVAL2_ITS ---
Patient's Visit Information Visit Information Visit Information: MEGHA DRAKE is a 79 year old F referred to Physical Therapy by Dr. Kody Larios DPM with a diagnosis of cervical spondylosis. Date of Evaluation: 09/13/24 Physical Therapist: Noe Brown DPT, OCS, CSCS Visit Plan Frequency: 2x /Week Duration: 4-6 Weeks Plan: 2x/week for 4 weeks for 1. MH and STM, to rhomboids , UT and paraspinals in neck. 2. shoulder and neck ROM and strength progressing to I home or gym program. Subjective Subjective: Neck pain Mostly L sided and been there for a couple months. Insidious onset. intermittent. Worse contralaterally with SB. No numbness tingling or pain in arms. Neck is worse sitting and up and moving . sleeping is not a problem but stiff in the am. Sleeps with a lot of pillows. Activity dozier is normal, dressing , bathroom, shower all I. Hobbies: comedy, making jewelry, carfts and they are not a problem. No exercises specific to neck or arms. Pain neck painm: Intensity: 2 Pain Intensity Range: 0 and 3 Objective Objective: Posture is forward head and elevated protracteed scap B. Tender to palpation B UT moderately and into subocc minimally, rhomboids slightly B. cervical AROM retraction limited, ext 40 and rotation 45 B without pain, SB is tightn contralaterally but not painful. UE AROM WFL and without pain but stiff shoulder elevation 130 B with some shoulder pain R. Elbows and wrists WFL. reflexes 2/3 bi and tri sensation UE WNL to gross light touch B. strength shoulders 3+ no pain rotation and elevation, elbows 3+ and no pain, wrist 4- and no pain. - c/s compression test. Goals Goal 1:: 55 rotations and 50 extension without pain neck Goal Time Frame: 4-6 Weeks Goal 2:: Pain neck 2/10 at owrst and 75% improved Goal Time Frame: 4-6 Weeks Goal 3:: I HEP to manage condition. Goal Time Frame: 4-6 Weeks Rehabilitation Potential Physical Therapy Diagnosis: neck discomfort effecting comfortable funciton. Rehabilitation Potential: Fair Anticipated Interventions Patient/Client Instruction: Educate patient on: Condition and Plan of Care For the Purpose of:: To decrease pain, To increase ROM, To improve nutrient delivery to tissue, To increase tolerance to activity/condition/position and To improve ability of physical actions for home/community/work/leisure Therapeutic Exercise to Include: Strength training, Postural training, Flexibilty training, Passive ROM and Active ROM For the Purpose of:: To decrease pain, To increase ROM, To improve nutrient delivery to tissue and To improve muscle performance and motor function Manual Therapy Techniques to Include: Passive ROM and Soft tissue mobilization For the Purpose of:: To increase ROM, To improve nutrient delivery to tissue and To increase tolerance to activity/condition/position Thermo therapy (hot pack): Yes For the Purpose of:: To decrease pain text: Thank you for the opportunity to evaluate your patient. For Medicare and Medicare HMO plans, please review the plan of care and approve it. It will need to be FAXED BACK to us at [phone] for Medicare purposes. For Medicare only, by signing this I certify the plan of care. Please let me know if there are questions or concerns regarding this plan of care. Physician Signature: Date:
--- NOTE | 2024-10-11 11:15 | HP.PTDCS(2) ---
Discharge Summary D/C Summary: It has been my pleasure to treat MEGHA DRAKE referred by Dr. Baires, with the diagnosis of cervical spondylosis for a total of 8 visit(s). Discharge Date: 10/11/24 Please see the following information for a summary of their discharge status. Subjective Subjective: I am good. Neck is moving better but still slightly stiff, will continue the oexercises at home and mocha. Neck pain persists at times with truning head transiently 3/10. To [facility] for back soon. Overall Improvement % Improvement: 75 Objective Objective/Function/Assessment: 55 extension, 55 R rotation adn 35 L rotation with soreness to the left. Posture is still fW head and much richard that is structural. Tender L side of neck and L rotation still limited. Goals Patient Goals: Other Other Goals: looser. Goal 1:: 55 rotations and 50 extension without pain neck Goal 2:: Pain neck 2/10 at owrst and 75% improved Goal Progress: Goal Met Goal 3:: I HEP to manage condition. Goal Progress: Goal Met Plan Plan: d/c to HEP and [facility] Pt to doctor if situation worsens. D/C Information d/c sentence: If there are questions or concerns regarding this patient's physical therapy, please feel free to call me at [phone]. Thank you for the referral of this patient. Sincerely, Noe Brown, DPT, OCS, CSCS Balance/Special Test Scores Improvement % Improvement: 75
== END 2024-10-11 12:32 | disposition home or self-care (01) ==
LOC: PT 10:30
PROVIDERS: PCP Physician Assistant; Referring Provider Podiatrist Foot & Ankle Surgery; Visit Provider Podiatrist Foot & Ankle Surgery
DX: M47.26 Other spondylosis with radiculopathy, lumbar region (principal); E11.42 Type 2 diabetes mellitus with diabetic polyneuropathy
CPT/HCPCS: 97110; 97113; 97140; 97161; 97162; 97164

== ENCOUNTER 2024-12-20 10:30 | Outpatient (RCR) | payer MEDICARE, OTHER, SELFPAY ==
--- NOTE | 2024-10-25 08:52 | HP.PTEVAL_ITS ---
Patient's Visit Information Visit Information Visit Information: MEGHA DRAKE is a 79 year old F referred to Physical Therapy by Dr. Markus Holly DO with a diagnosis of Unilateral primary osteoarthritis right knee, M17.11. Date of Evaluation: 10/25/24 Physical Therapist: Ashok Benedict Visit Plan Frequency: 2x /Week Duration: 6 Weeks Plan: Continue with improving knee ROM, LE strength, and balance exercises. Use manual therapy and modalities as needed for pain control. Subjective Subjective: Pt. is a 79 y.o. female who has been having right knee pain for about a year with no specific injury that she is aware of. Her PLOF includes history of right femur fracture in 2013 and had ORIF for this. Pt. had recent x- ray of her right knee which showed moderate tricompartmental osteoarthritis and effusion. Pt. does not use an assistive device. She denies any falls in the last six months. Pt. does get numbness and tingling in her feet for her neuropathy. Pt. has difficulty with walking longer than 30 minutes, ascending/descending stairs, squatting, occasionally sleeping, getting out of the tub, and housework. 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 Her goal with physical therapy is to be able to get out of the tub without any pain or difficulty. She has had previous physical therapy for multiple things. Pt. denies any knee pain currently, at worst 5/10 and describes the pain as achy and pressure. Pt. will take Ibuprofen for pain. Her PMH includes type II diabetes, breast cancer with bilateral masectomy, hiatal hernia, abdominal hernias, left TKR in 2007, right femur ORIF in 2013, gall bladder removed, appendectomy, and cervical fusion. Pt. lives with her in a condo. Her hobbies include pain ting, puzzles, and making jewelry. Objective Objective: Swelling- Around both knees 45 cm Palpation- Mild tenderness over superior right patella Left knee AROM flexion 106 degrees and extension -7 degrees Right knee AROM flexion 104 degrees and extension -5 degrees Left LE strength hip flexion 5/5, abduction 4/5, adduction 5/5, extension 4/5, knee flexion 5/5, knee extension 5/5, ankle DF 5/5, ankle PF 5/5 Right LE strength hip flexion 4+/5, abduction 4/5, adduction 4+/5, extension 4/5, knee flexion 4+/5, knee extension 4+/5, ankle DF 5/5, ankle PF 5/5 30 sec sit to stand- x 10 with no arm assist Tandem stance right 3 secs, left 3 secs SLS right 6 secs, left 4 secs Gait- Pt. ambulates with slight antalgic gait pattern of right lower extremity. Balance/Special Test Scores Lower Extremity Functional Score: 54 Goals Goal 1:: Pt. will be independent with home exercise program. Goal Time Frame: 4-6 Weeks Goal 2:: Pt. will improve right LE strength to 4+/5 for all motions in order to improve mobility. Goal Time Frame: 4-6 Weeks Goal 3:: Pt. will be able to get into/out of the bath tub with no right knee pain or difficulty. Goal Time Frame: 4-6 Weeks Goal 4:: Pt. will improve tandem stance > 15 secs bilaterally in order to improve stability and balance. Goal Time Frame: 4-6 Weeks Goal 5:: Pt. will rate right knee pain at worst at 3/10 with ADL's. Goal Time Frame: 4-6 Weeks Goal 6:: Pt. will improve LEFS score < 30% disability in order to improve ADL's. Goal Time Frame: 4-6 Weeks Rehabilitation Potential Physical Therapy Diagnosis: Decreased right knee ROM, LE strength, difficulty walking, balance impairment, and pain Rehabilitation Potential: Good Anticipated Interventions Patient/Client Instruction: Educate patient on: Condition and Plan of Care For the Purpose of:: To decrease pain, To increase ROM, To improve ability to perform ADL's, To improve performance and independence with ADL's, To improve balance, To assume or resume ADL's and To improve tolerance to ADL's Therapeutic Exercise to Include: Strength training, Balance training, Flexibilty training, Gait and locomotor training and Active ROM For the Purpose of:: To decrease pain, To increase ROM, To improve ability to perform ADL's, To improve performance and independence with ADL's, To increase flexibility/ROM, To improve endurance, To improve balance, To improve safety with gait, To assume or resume ADL's and To improve tolerance to ADL's Functional Training to Include: ADL Training and Gait training For the Purpose of:: To decrease pain, To improve ability to perform ADL's, To improve performance and independence with ADL's, To improve balance, To improve safety with gait, To assume or resume ADL's and To improve tolerance to ADL's Manual Therapy Techniques to Include: Soft tissue mobilization For the Purpose of:: To decrease pain, To increase ROM, To improve ability to p erform ADL's, To improve performance and independence with ADL's and To improve tolerance to ADL's Assistive Devices: Cane For the Purpose of:: To decrease pain, To improve ability to perform ADL's, To improve performance and independence with ADL's, To improve balance, To improve safety with gait, To assume or resume ADL's and To improve tolerance to ADL's TENS: Yes IF ES: Yes Cryotherapy (ice pack, ice massage): Yes For the Purpose of:: To decrease pain, To improve ability to perform ADL's, To improve performance and independence with ADL's and To improve tolerance to ADL's Text: Thank you for the opportunity to evaluate your patient. For Medicare and Medicare HMO plans, please review the plan of care and approve it. It will need to be FAXED BACK to us at [phone] for Medicare purposes. For Medicare only, by signing this I certify the plan of care. Please let me know if there are questions or concerns regarding this plan of care. Physician Signature: Date:
--- NOTE | 2024-11-22 11:23 | HP.PTREVAL ---
Re-Evaluation Intro: Dr. Markus Holly, DO, It has been my pleasure to treat MEGHA DRAKE over the last 8 visits for Unilateral primary osteoarthritis right knee, M17.11. Please see the progress note below for an update on the physical therapy plan of care! Subjective Subjective: I have made significant improvements up til now. I still have difficulty with getting out of the bath tub Objective Objective/Function: R knee pain ranges from 3-7/10 Pt is I with HEP Pt is unable to tandem stance greater than 3 seconds R LE strength is grossly 4/5 throughout Plan Plan Plan: 11/22/24- Focus on R LE strengthening and balance deficits at this time. Pt to stretch at home. Balance/Gait/Functional tests Balance/Special Test Scores Lower Extremity Functional Score: 61 Goals Goals Goal 1:: Pt. will be independent with home exercise program. Goal Time Frame: 4-6 Weeks Goal Progress: Goal Met Goal 2:: Pt. will improve right LE strength to 4+/5 for all motions in order to improve mobility. Goal Time Frame: 4-6 Weeks Goal Progress: Progressing Goal 3:: Pt. will be able to get into/out of the bath tub with no right knee pain or difficulty. Goal Time Frame: 4-6 Weeks Goal Progress: Progressing Goal 4:: Pt. will improve tandem stance > 15 secs bilaterally in order to improve stability and balance. Goal Time Frame: 4-6 Weeks Goal 5:: Pt. will rate right knee pain at worst at 3/10 with ADL's. Goal Time Frame: 4-6 Weeks Goal Progress: Progressing Goal 6:: Pt. will improve LEFS score < 30% disability in order to improve ADL's. Goal Time Frame: 4-6 Weeks Goal Progress: Goal Met Anticipated Interventions Anticipated Interventions Patient/Client Instruction: Educate patient on: Condition and Plan of Care For the Purpose of:: To decrease pain, To increase ROM, To improve ability to perform ADL's, To improve performance and independence with ADL's, To improve balance, To assume or resume ADL's and To improve tolerance to ADL's Therapeutic Exercise to Include: Strength training, Balance training, Flexibilty training, Gait and locomotor training and Active ROM For the Purpose of:: To decrease pain, To increase ROM, To improve ability to perform ADL's, To improve performance and independence with ADL's, To increase flexibility/ROM, To improve endurance, To improve balance, To improve safety with gait, To assume or resume ADL's and To improve tolerance to ADL's Functional Training to Include: ADL Training and Gait training For the Purpose of:: To decrease pain, To improve ability to perform ADL's, To improve performance and independence with ADL's, To improve balance, To improve safety with gait, To assume or resume ADL's and To improve tolerance to ADL's Manual Therapy Techniques to Include: Soft tissue mobilization For the Purpose of:: To decrease pain, To increase ROM, To improve ability to perform ADL's, To improve performance and independence with ADL's and To improve tolerance to ADL's Assistive Devices: Cane For the Purpose of:: To decrease pain, To improve ability to perform ADL's, To improve performance and independence with ADL's, To improve balance, To improve safety with gait, To assume or resume ADL's and To improve tolerance to ADL's TENS: Yes IF ES: Yes Cryotherapy (ice pack, ice massage): Yes For the Purpose of:: To decrease pain, To improve ability to perform ADL's, To improve performance and independence with ADL's and To improve tolerance to ADL's Re-Evaluation Ending Re-evaluation ending: Please do not hesitate to contact me at [phone] by phone or if you have questions or concerns regarding this new plan of care! Sincerely, Anthony Burris, PT, ATC
--- NOTE | 2024-12-20 11:25 | HP.PTDCSUM ---
Discharge Summary D/C summary: It has been my pleasure to treat MEGHA DRAKE referred by Dr. Markus Holly DO, with the diagnosis of Unilateral primary osteoarthritis right knee, M17.11 for a total of 16 visit(s). Discharge Date: Please see the following information for a summary of their discharge status. Subjective Subjective: I have achieved what I came here for Pain R knee: Pain Intensity (Out of 10): 2 Overall Improvement % Improvement: 90 Objective Objective/Function: Pt rates R knee pain at 2/10 Pt is I with HEP R knee strength is 5/5 throughout SLS R LE for 3 seconds Goals Goal 1:: Pt. will be independent with home exercise program. Goal Progress: Goal Met Goal 2:: Pt. will improve right LE strength to 4+/5 for all motions in order to improve mobility. Goal Progress: Goal Met Goal 3:: Pt. will be able to get into/out of the bath tub with no right knee pain or difficulty. Goal Progress: Progressing Goal 4:: Pt. will improve tandem stance > 15 secs bilaterally in order to improve stability and balance. Goal Progress: Progressing Goal 5:: Pt. will rate right knee pain at worst at 3/10 with ADL's. Goal Progress: Goal Met Goal 6:: Pt. will improve LEFS score < 30% disability in order to improve ADL's. Goal Progress: Goal Met Plan Plan: Discontinue to HEP D/C Information d/c sentence: If there are questions or concerns regarding this patient's physical therapy, please feel free to call me at [phone]. Thank you for the referral of this patient. Sincerely, Anthony Burris, PT, ATC Balance/Gait/Functional tests Balance/Special Test Scores Lower Extremity Functional Score: 56 Improvement % Improvement: 90
== END 2024-12-20 19:00 | disposition home or self-care (01) ==
LOC: PT 10:30
PROVIDERS: PCP Physician Assistant; Referring Provider Orthopaedic Surgery; Visit Provider Orthopaedic Surgery
DX: M17.11 Unilateral primary osteoarthritis, right knee (principal)
CPT/HCPCS: 97110; 97162; 97530

== ENCOUNTER 2025-03-13 10:46 | Emergency (ER) | payer MEDICARE, OTHER, SELFPAY ==
[2025-03-13 10:48] VITALS: BP 144/91; PULSE 98; RESP 20; TEMP 36.9; O2SAT 98; BMI 43.1
--- NOTE | 2025-03-13 11:31 | CT_ITS ---
PROCEDURE: BRAIN/HEAD WITHOUT CONTRAST 03/13/2025 REASON FOR EXAM: TRAUMA TECHNIQUE: Head CT without intravenous contrast. Coronal and Sagittal reconstruction series were provided. One or more dose reduction techniques were used (e.g., Automated exposure control, adjustment of the mA and/or kV according to patient size, use of iterative reconstruction technique. RADIATION DOSE SUMMARY: CTDlvol: 44.99 mGy DLP: 796.11 mGycm COMPARISON: Prior study dated January 17, 2019. FINDINGS: Brain: Low density in the periventricular white matter suggests mild chronic small vessel ischemic changes. CSF Spaces: Mild generalized cerebral atrophy Sinuses/Mastoids: Partial opacification of the ethmoid sinuses. Bones: Hyperostosis frontalis interna. CT/Brain/Head without Contrast IMPRESSION: CHRONIC CHANGES. NO ACUTE FINDINGS. Reading Location: [place] [id number]
--- NOTE | 2025-03-13 11:31 | CT_ITS ---
PROCEDURE: SPINE LUMBAR WITHOUT CONTRAST 03/13/2025 REASON FOR EXAM: FALL Low back pain following a fall. TECHNIQUE: Lumbar spine CT without contrast. Coronal and Sagittal reconstruction series were provided. One or more dose reduction techniques were used (e.g., Automated exposure control, adjustment of the mA and/or kV according to patient size, use of iterative reconstruction technique COMPARISON: Prior MRI examination dated August 03, 2024. RADIATION DOSE SUMMARY: CTDlvol: 44.22 mGy DLP: 1660.83 mGycm FINDINGS: Vertebrae: No vertebral compression fracture. Alignment: Normal alignment. L1-2: Unremarkable. L2-3: Facet joint osteoarthritis. No evidence of stenosis. L3-4: Mild degree of diffuse posterior disc bulge. Facet joint osteoarthritis. Mild degree of bilateral neural foraminal stenosis. L4-5: Mild degree of diffuse posterior disc bulge. Facet joint osteoarthritis and hypertrophy. Mild degree of neural foraminal stenosis. L5-S1: Facet joint osteoarthritis. Grade 1 anterior listhesis of L5 on S1 with disc space narrowing and disc degeneration. Sacrum: Degenerative changes of the sacroiliac joints. CT/Spine Lumbar without Contrast IMPRESSION: NO ACUTE LUMBAR FRACTURE. DEGENERATIVE CHANGES. Reading Location: [place] [id number]
--- NOTE | 2025-03-13 11:31 | RAD_ITS ---
PROCEDURE: CHEST PA AND LATERAL 03/13/2025 REASON FOR EXAM: FALL AND RIB PAIN TECHNIQUE: Frontal and lateral views of the chest. COMPARISON: Prior study dated December 29, 2020. FINDINGS: Hardware: Surgical clips are seen in both axillary regions. Heart: Heart size is mildly enlarged. Mediastinum: The mediastinal contour is unremarkable. Lungs: Mild increased markings at the lung bases suggestive of scarring. Bones: Degenerative changes are identified within the thoracic spine. Large hiatal hernia. RAD/Chest PA and Lateral IMPRESSION: Large hiatal hernia. Findings suggestive of mild basilar scarring. Reading Location: [facility]
--- NOTE | 2025-03-13 11:31 | CT_ITS ---
PROCEDURE: SPINE CERVICAL WITHOUT CONTRAS 03/13/2025 REASON FOR EXAM: FALL Cervical pain following a fall. TECHNIQUE: Cervical spine CT without contrast. Coronal and Sagittal reconstruction series were provided. One or more dose reduction techniques were used (e.g., Automated exposure control, adjustment of the mA and/or kV according to patient size, use of iterative reconstruction technique RADIATION DOSE SUMMARY: CTDlvol: 23.52 mGy DLP: 409.69 mGycm COMPARISON: Prior study dated January 17, 2019. FINDINGS: Alignment: Straightening of the normal cervical lordosis. Vertebrae: Prior anterior fusion at the C5-C6 level. Soft Tissues: No prevertebral soft tissue swelling. Other: None C1-2: Degenerative changes of the atlantoaxial joint. C2-3: Facet joint osteoarthritis and hypertrophy worse on the left side. Uncovertebral arthrosis. Bilateral neural foraminal stenosis worse on the left side. C3-4: Disc space is well-maintained. Facet joint osteoarthritis and hypertrophy worse on the left side. Moderate degree of left neural foraminal stenosis. C4-5: Moderate degree of disc space narrowing and spondylosis. Uncovertebral arthrosis. Left neural foraminal stenosis. C5-6: Status post anterior fusion. There is uncovertebral arthrosis and bilateral neural foraminal stenosis. C6-7: Disc space narrowing and anterior spondylosis. C7-T1: Unremarkable. CT/Spine Cervical without Contras IMPRESSION: NO ACUTE CERVICAL FRACTURE. Multilevel degenerative changes as well as facet joint osteoarthritis and neura l foraminal stenosis as described. Reading Location: [facility]
--- NOTE | 2025-03-13 11:34 | ED.VIS.FALL ---
HPI HPI - Fall History of Present Illness Chief Complaint: Fall Informant: patient and spouse/S.O. Occured/Mechanism Occurred: Today Mechanism/Context: Yes same level fall and Yes other see narrative below Usually ambulates: Without assistance Pain/Injury Pain Location: head, neck, back and other (Right-sided ribs.) Current Severity: Moderate Maximum Severity: Moderate Associated Symptoms Associated Symptoms: Negative for Loss of consciousness Narrative Narrative: 80-year-old female history of diabetes, hypertension and prior neck surgery with a C5 fusion. Was going in [place] today for physical therapy for her neck and when the door closed and hit her and she was thrown forward and states when she fell to the ground she hurt her head, neck, right ribs and lower back. No LOC. She is on no blood thinners. Denies anterior chest or abdominal pain. Prior similar symptoms: No Recent Illness/Hospitalization: No PFSH PFS Medical History Neuropathy due to type 2 diabetes mellitus Status post closed fracture of right hip Bipolar II disorder Personal history of breast cancer Asthma HTN (hypertension) HLD (hyperlipidemia) DM2 (diabetes mellitus, type 2) Home Medications ?Medication ?Instructions ?Recorded ?Last Taken ?Type duloxetine 30 mg capsule,delayed 30 mg PO DAILY DEPRESSION 04/13/18 Unknown History release esomeprazole magnesium 40 mg 40 mg PO DAILY REFLUX 04/13/18 Unknown History capsule,delayed release (Nexium) gabapentin 600 mg tablet 600 mg PO BID 04/13/18 Unknown History metoprolol succinate 50 mg 50 mg PO QHS BP 04/13/18 07/16/19 08:30 History tablet,extended release 24 hr (Toprol XL) vitamins A,C,G-yvzv-mzdizz 4,296 1 ea PO DAILY EYES 04/13/18 Unknown History mcg-226 mg-90 mg capsule (PreserVision AREDS) albuterol sulfate 2.5 mg/3 mL 2.5 mg inhalation Q4H PRN PRN 06/02/18 Unknown History (0.083 %) solution for nebulization Wheezing albuterol sulfate 90 mcg/actuation 6.7 g IH PRN PRN Asthma/WHEEZING 06/02/18 Unknown History aerosol inhaler (Proventil HFA) cholecalciferol (vitamin D3) 50 2,000 unit PO QHS 12/08/18 Unknown History mcg (2,000 unit) capsule (Vitamin D3) calcium 500 mg (as 1 each PO DAILY 12/29/20 Unknown History carbonate)-vitamin D3 15 mcg (600 unit) tablet cyclosporine 0.05 % eye drops in a 1 each OP BID 12/29/20 Unknown History dropperette ipratropium bromide 0.02 % 1 PRN PRN Sob &/Or Wheezing 12/29/20 Unknown History solution for inhalation bupropion HCl 150 mg 24 hr tablet, mg PO DAILY 10/24/24 Unknown History extended release rosuvastatin 5 mg tablet mg PO 10/24/24 Unknown History sitagliptin phosphate 25 mg tablet mg PO DAILY 10/24/24 Unknown History (Januvia) torsemide 10 mg tablet mg PO 10/24/24 Unknown History Allergy/AdvReac Type Severity Reaction Status Date / Time hydromorphone (From Dilaudid) Allergy hallucinati Verified 03/13/25 10:52 ons metoclopramide Allergy Other Verified 03/13/25 10:52 nifedipine Allergy Other Verified 03/13/25 10:52 nitrofurantoin Allergy Other Verified 03/13/25 10:52 lorazepam (From Ativan) AdvReac Other Verified 03/13/25 10:52 tramadol (From Ultram) AdvReac Other Verified 03/13/25 10:52 Surgical History Status post total knee replacement, left Social History Smoking Status: Former smoker ROS ROS ED ROS Narrative Denies recent illness. Constitutional Constitutional ED: Denies chills or fever(s) Eyes Eyes: Denies blurry vision ENT ENT ED: Denies ear pain Cardiovascular Cardiovascular: Denies chest pain Respiratory/Chest Respiratory/Chest: Denies cough or dyspnea Gastrointestinal Gastrointestinal: Denies abdominal pain Genitourinary Genitourinary ED: Denies dysuria Musculoskeletal Musculoskeletal: Reports back pain and neck pain; Denies arthralgias Integumentary Denies abscess Neurologic Neurologic: Denies headache(s) Psychiatric Psychiatric: Denies anxiety Endocrine Endocrinology: Denies polydipsia Hematologic/Lymphatic Hematologic/Lymphatic: Denies easy bleeding Allergic/Immunologic Allergic/Immunologic ED: Denies mouth swelling EXAM Physical Exam Narrative Exam Narrative: 80-year-old female sitting upright in bed with a c-collar in place. at bedside. Vital signs are stable afebrile. She is complaining of pain. H EENT exam pupils round reactive light. Extra motions are intact. There is no signs of trauma to oropharynx. She has tenderness to her posterior scalp. C-collar in place. Trachea midline. Lungs clear to auscultation bilaterally. Heart regular rhythm rate about 95 no murmur. Chest wall anterior chest wall nontender she complains of tenderness to her right lateral rib cage. There is no ecchymosis or bruising. There is no subcu air or crepitus. Abdomen is soft, nontender, nondistended all bowels without peritoneal signs. Pelvic girdle is intact. Back she complains of pain over her lower back. Moving all 4 extremities. 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 Normal dorsi plantarflexion. No deformity. No dislocation. Neurologically she is awake and alert. Answering questions following commands. She can raise both hands overhead. Const Vital Signs: 03/13/25 10:48 03/13/25 10:55 03/13/25 12:46 Temperature 98.4 F Temperature Source Oral Pulse Rate 98 72 Respiratory Rate 20 H 18 Respiratory Effort Normal Blood Pressure 144/91 H 148/87 H Blood Pressure Mean 108 107 Pulse Ox 98 94 Oxygen Delivery Method Room Air 03/13/25 14:00 03/13/25 14:41 Temperature Temperature Source Pulse Rate 87 84 Respiratory Rate 16 16 Respiratory Effort Blood Pressure 139/88 H 148/92 H Blood Pressure Mean 105 110 Pulse Ox 100 98 Oxygen Delivery Method Room Air Room Air Positive well nourished and well developed; Negative for cachectic or contractures General Appearance ED: well developed and NAD; Negative for cachectic or contractures Nutritional Appearance: Negative for cachectic HEENT Reports normocephalic HEENT Narrative: Posterior scalp tenderness. trauma, contusion and tenderness; Negative for atraumatic Eyes PERRL and EOMs intact bilaterally Neck No full ROM and supple Neck Narrative: C-collar in place. Chest Wall palpation of chest normal; Negative for inspection of chest normal Chest Narrative: Right rib cage tenderness. No crepitance or subcu air. Resp normal respiratory effort, no retractions and clear to auscultation bilaterally Cardio regular rate, regular rhythm, S1 normal heart sound, S2 normal heart sound and no murmurs GI non-tender, non-distended and no masses Palpation: soft; Negative for guarding or rebound tenderness present Back/Spine no CVA tenderness General Back: Negative for CVA tenderness Cervical Spine: cervical spine tenderness Thoracic Spine / Upper Back: Negative for thoracic spinal tenderness Lumbar Spine / Lower Back: lumbar spinal tenderness Neuro oriented x3, CN's II-XII intact bilaterally and moves all extremities Cascade Coma Scale: document GCS findings Spontaneous Obeys Commands Oriented 15 Sensorium / Orientation: alert, oriented to person, oriented to place and oriented to time; Negative for orientation impaired or confused Motor Exam: strength 5/5 throughout Psych mental status grossly normal and thought process normal Mood & Affect: anxious Skin Lesions: no lesions Rashes: no rashes MDM MDM MDM Narrative Medical decision making narrative: 80-year-old female fell coming in the door when reportedly hit her. Complaining of head, neck, right rib cage and lower back pain. CAT scans of her head neck and back to be obtained. Also a chest x-ray. She be given morphine for pain and Zofran to prevent nausea. Exam patient is doing well. Received IV morphine x 2 for pain. CAT scans were chronic but no acute fractures. No intracranial bleed. No acute neck injury. She will be discharged to home. History & Record Review Discussion w/independent historian: Patient and Family Additional record(s) reviewed:: Prior inpatient record, Prior outpatient record, Prior ED visit and Prior labs Radiography Chest X-Ray - ED: 2 View, Read by ED Physician, Read by Radiologist, Heart, Lungs, Mediastinum, Bony Structures, No Acute Disease and Chronic Changes Diagnostic Testing: Clinical Impression(s) from Imaging Studies Brain CT 03/13/25 11:31 IMPRESSION: CHRONIC CHANGES. NO ACUTE FINDINGS. Reading Location: [facility] 03/13/25 11:31 IMPRESSION: NO ACUTE CERVICAL FRACTURE. Multilevel degenerative changes as well as facet joint osteoarthritis and neural foraminal stenosis as described. Reading Location: [facility] Chest X-Ray 03/13/25 11:31 IMPRESSION: Large hiatal hernia. Findings suggestive of mild basilar scarring. Reading Location: [facility] 03/13/25 11:31 IMPRESSION: NO ACUTE LUMBAR FRACTURE. DEGENERATIVE CHANGES. Reading Location: [facility] Chest x-ray, 2 views, AP and lateral, interpreted by by myself and radiologist. Shows large hiatal hernia. Normal cardiac silhouette. Chronic changes. No acute process. No obvious rib fracture seen. No pneumothorax. No effusions. Discharge Plan Triage Chief Complaint: Fall ED Provider: Norman Caro Dx/Rx/DC Orders Clinical Impression: Fall, Closed head injury, Cervical muscle strain, History of neck surgery, Lumbar contusion, Rib contusion Instructions: ED Back Contusion, ED Head Injury (Adult), ED Neck Sprain or Strain Prescriptions: No Action torsemide 10 mg tablet PO Patient Comments: [NO ORIGINAL SIG] rosuvastatin 5 mg tablet PO Patient Comments: [NO ORIGINAL SIG] bupropion HCl 150 mg tablet extended release 24 hr PO DAILY Januvia 25 mg tablet PO DAILY gabapentin 600 MG tablet 600 mg PO BID metoprolol succinate [Toprol XL] 50 MG tablet extended release 24 hr 50 mg PO QHS esomeprazole magnesium [Nexium] 40 MG capsule 40 mg PO DAILY duloxetine 30 MG capsule 30 mg PO DAILY vitamins A,C,O-onmd-vatxas [PreserVision AREDS] 1 EACH capsule 1 ea PO DAILY albuterol sulfate 2.5 MG/3 ML solution for nebulization 2.5 mg inhalation Q4H PRN PRN (Reason: Wheezing) albuterol sulfate [Proventil HFA] 6.7 GM HFA aerosol inhaler 6.7 g IH PRN PRN (Reason: Asthma/WHEEZING) cholecalciferol (vitamin D3) [Vitamin D3] 2,000 UNIT capsule 2,000 unit PO QHS ipratropium bromide 0.2 MG/ML solution 1 PRN PRN (Reason: Sob &/Or Wheezing) cyclosporine 1 EACH dropperette 1 each OP BID calcium carbonate-vitamin D3 1 EACH tablet 1 each PO DAILY Primary Care Provider: Kasie Dupree Referrals: Kasie Dupree, PROPERTY OFFICER [Primary Care Provider] - 1 Week if not improving Activity Restrictions/Additional Instructions: Ice all sore areas. Tylenol for pain. Follow-up with your doctor as needed. Print Language: Georgian Disposition Disposition: Home, Self Care
[2025-03-13] MEDS: Morphine 4 MG/ML Syringe IV ×2 (11:49→14:38)
[2025-03-13] MEDS: Ondansetron 4 MG/2 ML Vial IV ×2 (11:49→14:38)
[2025-03-13 12:46] VITALS: BP 148/87; PULSE 72; RESP 18; O2SAT 94
[2025-03-13 14:00] VITALS: BP 139/88; PULSE 87; RESP 16; O2SAT 100
[2025-03-13 14:41] VITALS: BP 148/92; PULSE 84; RESP 16; O2SAT 98
[2025-03-13 15:46] VITALS: BP 145/99; PULSE 67; RESP 18; O2SAT 99
== END 2025-03-13 15:54 | disposition home or self-care (01) ==
PROVIDERS: Emergency Provider Emergency Medicine; PCP Clinical Nurse Specialist Adult Health; Visit Provider Emergency Medicine
DX: S00.03XA Contusion of scalp, initial encounter (principal); E11.40 Type 2 diabetes mellitus with diabetic neuropathy, unspecified; S16.1XXA Strain of muscle, fascia and tendon at neck level, initial encounter; S30.0XXA Contusion of lower back and pelvis, initial encounter; S20.211A Contusion of right front wall of thorax, initial encounter; W18.39XA Other fall on same level, initial encounter; Y93.01 Activity, walking, marching and hiking; Y92.89 Other specified places as the place of occurrence of the external cause; I10 Essential (primary) hypertension; Z98.1 Arthrodesis status; Z79.84 Long term (current) use of oral hypoglycemic drugs; Z79.899 Other long term (current) drug therapy; Z87.891 Personal history of nicotine dependence
CPT/HCPCS: 70450; 71046; 72125; 72131; 96374; 96375; 96376; 99285; J2405

== ENCOUNTER → 2025-03-21 | Outpatient (CLI) | payer MEDICARE, OTHER, SELFPAY | END | disposition home or self-care (01) | LOC: LABSPEC 15:45 | PROVIDERS: PCP Clinical Nurse Specialist Adult Health; Referring Provider Surgery Plastic and Reconstructive Surgery; Visit Provider Surgery Plastic and Reconstructive Surgery | DX: R22.41 Localized swelling, mass and lump, right lower limb (principal) ==

== ENCOUNTER 2025-04-29 10:00 | Outpatient (RCR) | payer MEDICARE, OTHER, SELFPAY ==
--- NOTE | 2025-02-21 10:51 | HP.PTEVAL_ITS ---
Patient's Visit Information Visit Information Visit Information: MEGHA DRAKE is a 80 year old F referred to Physical Therapy by Dr. Ashok Baires MD with a diagnosis of C/S spondylosis. Date of Evaluation: 02/21/25 Physical Therapist: Anthony Burris, PT, ATC Visit Plan Frequency: 2x /Week Duration: 4-6 Weeks Plan: Postural edu, US to cervical spine, DTR, scap stab ex's, and HEP Subjective Subjective: Pt reports she has had neck pain for several months. Pt notes the pain has progressively worsened over this span. Pt notes her neck feels very tight, and she has a hard time moving it. Pt notes she has pain in the back of her head as well that radiates to the front of her skull. Pt reports this often results in a head ache. Pt also notes she experiences a popping sensation in her head at times that sends a jolt through her head. Pt reports she has not had any recent diagnostic imaging at this time. Pt reports there is nothing in part icular that increases ;her pain. Pt notes her pain is constant in nature. Pt reports heat and ice helps to decrease her pain. Pt reports she is not driving and hasn't for 8 years. Pt reports occasional sleep difficulty at this time secondary to pain. Pt reports she is able to perform all of her IADL's and ADL's, but all activity increases her pain. Pt notes her pain is 8/10 while sitting here in the clinic, but elevates to 10/10 at worst. Pain Neck pain: Pain Intensity (Out of 10): 8 Pain Intensity Range: 10 Objective Objective: Neuro: B UE sensation is WNL to light touch. B bicipital reflex = 1/3 MMT: B UE's are grossly 4/5 throughout when compared bilaterally ROM: C./S retraction and extension are severely limited. All other motions are moderately limited. Pain with all motions Repeated movements: RPIS 10x2 peripheralizes sx's into shoulders. RRIS 10x2 peripheralizes sx's into B arms Special tests: Both apley compression and distraction test produce pain Balance/Special Test Scores Oswestry Neck Score: 25 Goals Goal 1:: Decrease neck pain x 50% to aid with sleep Goal Time Frame: 4-6 Weeks Goal 2:: Increase c/s ROM in all planes by one grade to aid with IADL's Goal Time Frame: 4-6 Weeks Goal 3:: Increase B UE strength x one grade to aid with normal daily activities Goal Time Frame: 4-6 Weeks Goal 4:: I with HEP Goal Time Frame: 4-6 Weeks Rehabilitation Potential Physical Therapy Diagnosis: Pt has neck pain, limited ROM, and difficulty with sleep secondary to degenerative changes in c/s Rehabilitation Potential: Good Anticipated Interventions Patient/Client Instruction: Educate patient on: Condition and Plan of Care For the Purpose of:: To improve self management Therapeutic Exercise to Include: Strength training, Endurance training, Balance training, Flexibilty training, Passive ROM, Active ROM and Scapular Strength/Stabilization For the Purpose of:: To decrease pain, To increase ROM and To improve muscle performance and motor function Ultrasound (thermal/non thermal): Yes For the Purpose of:: To decrease pain Text: Thank you for the opportunity to evaluate your patient. For Medicare and Medicare HMO plans, please review the plan of care and approve it. It will need to be FAXED BACK to us at [phone] for Medicare purposes. For Medicare only, by signing this I certify the plan of care. Please let me know if there are questions or concerns regarding this plan of care. Physician Signature: Date:
--- NOTE | 2025-03-21 13:13 | MASS_PTH ---
PATIENT: MEGHA DRAKE LOC: PT U#:[id number] AGE/SX: 80/F ROOM: RE04/29/[address]: Dr. Ashok Baires MD : 1945 BED: DIS: 04/29/2025 SPEC #: [id number] RECD: 03/21/25 15:39 STATUS: LYNDSEY REQ #: [id number] DREW: 03/21/25 13:[address]: Ugo Rosales DEPT: SURGICAL PATHOLOGY RECD BY: Markel Valdez ENTERED: 03/22/25 09:05 SP TYPE: Mass OTHR DR: MD Joan Rosenberg PA Tissues: A - Right leg Procedures: Surgery Specimen Level III Comments: @ Ordering doctor for SUIII edited from to @ by RUSSELL at 04/01/25919 @ Submitting doctor edited from to @ by RUSSELL at 04/01/25919 HEADER OPERATION: Excision right leg mass PRE-OP DIAGNOSIS: Right leg mass TISSUE SUBMITTED: A- Right leg mass MICROSCOPIC DIAGNOSIS A. Leg, right, mass, excision: * Benign fibroepithelial cyst. * Abundant laminated keratin debris. * Scant benign squamous epithelium. MICROSCOPIC DESCRIPTION Slides are reviewed. GROSS DESCRIPTION A. Received in formalin labeled with the patient's name and date of . Designated as right leg mass is a 2.3 x 1.8 x 0.5 cm aggregate of zamudio-pink to yellow lobulated to rubbery soft tissue fragments some of which appear to be a disrupted cyst wall. There is a separate, 1.3 x 0.7 x 0.2 cm irregular, focally disrupted portion of zamudio skin surfaced by a 0.9 x 0.7 x 0.6 cm zamudio-mclaughlin raised and somewhat peeling lesion. A definitive resection margin on the portion of skin is unable to be determined. Sectioning of the skin reveals friable cut surfaces. Concrete Engineer sections of the skin lesion, disrupted cyst contents and soft tissue are submitted in 1 cassette. [place] 03/22/2025 The remainder of the specimen is entirely submitted in cassettes A2-A3, following histopathologic review. [place] 03/27/2025 CPT:03716
--- NOTE | 2025-04-01 14:02 | HP.PTREVAL ---
Re-Evaluation Intro: Dr. Ashok Baires MD, It has been my pleasure to treat MEGHA DRAKE over the last 8 visits for C/S spondylosis. Please see the progress note below for an update on the physical therapy plan of care! Subjective Subjective: I am really sore. I have been secondary to the fall I had. Objective Objective/Function: Neck pain 9/10 currently C/S spine ROM is moderately limited in all planes R UE is grossly 4-/5 and limited by pain. L UE is 5/5 throughout. Pt appears to have regressed since her fall. Pain is her most limiting factor at this time. Plan Plan Plan: 04/01/25- Continue with Postural edu, US to cervical spine, DTR, scap stab ex's, and HEP Balance/Gait/Functional tests Balance/Special Test Scores Oswestry Neck Score: 32 Goals Goals Goal 1:: Decrease neck pain x 50% to aid with sleep Goal Time Frame: 4-6 Weeks Goal Progress: Not Progressing Goal 2:: Increase c/s ROM in all planes by one grade to aid with IADL's Goal Time Frame: 4-6 Weeks Goal Progress: Not Progressing Goal 3:: Increase B UE strength x one grade to aid with normal daily activities Goal Time Frame: 4-6 Weeks Goal 4:: I with HEP Goal Time Frame: 4-6 Weeks Goal Progress: Progressing Anticipated Interventions Anticipated Interventions Patient/Client Instruction: Educate patient on: Condition and Plan of Care For the Purpose of:: To improve self management Therapeutic Exercise to Include: Strength training, Endurance training, Balance training, Flexibilty training, Passive ROM, Active ROM and Scapular Strength/Stabilization For the Purpose of:: To decrease pain, To increase ROM and To improve muscle performance and motor function Ultrasound (thermal/non thermal): Yes For the Purpose of:: To decrease pain Re-Evaluation Ending Re-evaluation ending: Please do not hesitate to contact me at [phone] by phone or if you have questions or concerns regarding this new plan of care! Sincerely, Anthony Burris, PT, ATC
--- NOTE | 2025-04-29 11:06 | HP.PTDCSUM ---
Discharge Summary D/C summary: It has been my pleasure to treat MEGHA DRAKE referred by Dr. Ashok Baires MD, with the diagnosis of C/S spondylosis for a total of 17 visit(s). Discharge Date: Please see the following information for a summary of their discharge status. Subjective Subjective: Pt reports she has only made temporary improvements. No significant changes at this time. Pain Neck pain: Pain Intensity (Out of 10): 7 Overall Improvement % Improvement: 25 Objective Objective/Function: C/S pain is 7/10 Pt is significantly limited with side bend and rotational movements of the c/s MMT: B UE's are grossly rated at 4-/5 bilaterally Pt has not made significant improvements at this time Goals Goal 1:: Decrease neck pain x 50% to aid with sleep Goal Progress: Not Progressing Goal 2:: Increase c/s ROM in all planes by one grade to aid with IADL's Goal Progress: Not Progressing Goal 3:: Increase B UE strength x one grade to aid with normal daily activities Goal 4:: I with HEP Goal Progress: Goal Met Plan Plan: Discontinue. Return to doctor. D/C Information d/c sentence: If there are questions or concerns regarding this patient's physical therapy, please feel free to call me at [phone]. Thank you for the referral of this patient. Sincerely, Anthony Burris, PT, ATC Balance/Gait/Functional tests Balance/Special Test Scores Oswestry Neck Score: 32 Improvement % Improvement: 25
== END 2025-04-29 11:18 | disposition home or self-care (01) ==
LOC: PT 10:00
PROVIDERS: PCP Physician Assistant; Referring Provider Anesthesiology; Visit Provider Anesthesiology
DX: M47.812 Spondylosis without myelopathy or radiculopathy, cervical region (principal)
CPT/HCPCS: 88304; 97035; 97140; 97161; 97530